=== PATIENT | female | born 2005 | race Caucasian/White ===

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

== ENCOUNTER 2024-11-01 22:18 | Outpatient (REF) | payer MEDICAID, SELFPAY ==
[2024-11-01 21:57] LABS: TSH (W/Ref FT4) 1.73 uIU/mL (0.36-3.74)
--- OUTSIDE RECORDS SUMMARY | 2024-11-01 22:20 | XMS_ITS | Encounter Summary ---
Author Organization [facility] Address [facility] [place] [address] Care Team Providers Care Resource Analyst Name Role Phone Rohan Luevnao EUGENIO Primary Care Provider Encounter Details Date Type Department Care Team (Latest Contact Info) Description 07/08/2024 1:00 PM EDT Office Visit Cardiology at [address] [phone] Jose Daily MD [facility] [place] [address] Nay Sheikh MD [facility] [address] Inappropriate sinus tachycardia Social History Tobacco Use Types Packs/Day Years Used Date Smoking Tobacco: Never Passive Smoke Exposure: Yes Smokeless Tobacco: Never Comments:mom and stepdad smo kes outside Sex and Gender Information Value Date Recorded Sex Assigned at Not on file Gender Identity Not on file Sexual Orientation Not on file documented as of this encounter Last Filed Vital Signs Vital Sign Reading Time Taken Comments Blood Pressure 125/79 07/08/2024 12:53 PM EDT Pulse 61 07/08/2024 12:53 PM EDT Temperature - - Respiratory Rate - - Oxygen Saturation 98% 07/08/2024 12:53 PM EDT Inhaled Oxygen Concentration - - Weight 84.6 kg (186 lb 6.4 oz) 07/08/2024 12:53 PM EDT Height 144.8 cm (4' 9) 07/08/2024 12:53 PM EDT Body Mass Index 40.34 07/08/2024 12:53 PM EDT documented in this encounter Progress Notes * Nay Sheikh MD - 07/08/2024 1:00 PM EDT Images from the original note were not included. [facility] [place] [address] Violette Barrera [id number] 07/08/2024 REFERRING PROVIDER: Rohan Luevano HISTORY OF PRESENT ILLNESS: Miss. Barrera is a 18 year old woman who presents to establish care in Cardiology for work up of dizziness, tachycardia, and chest pain. For the past two years now Violette has noticed that almost daily, to every other day she experiences short spells of lightheadedness/dizziness with chest discomfort. This occurs either at rest or exertion. She describes the dizziness as the feeling of she is spinning, feels lightheaded/faint, but does not syncopize. She has presented to [facility] ED for evaluation and it has been noted that her heart rate is 120-130 at that time. She describes her chest pain as in the center of her chest without radiation. She denies diaphoresis or nausea. Her vision will feel mildly blurry with these episodes. Overall, her exertional capacity is somewhat limited due to the tachycardia/palpitations she experiences when she exerts herself. She was ordered a holter monitor 48 hours for work-up which showed a resting HR for 95 bpm and no arrhythmia. She reports that she did not have any symptoms for the duration of time she had the monitor on. There is no clear trigger for the symptom onset, not necessarily stress or exertion related. Her medications are notable for the following: - vyvanse (for 10 years) - anti-allergy medication - synthroid (stable dose with TFT's) - Metoprolol Tartrate 25 mg BID was added. So far she has also had a neurology visit, and completed an MRI. She was last seen by me on 10/13/23 at which time a TTE, Ziopatch were planned for. Ziopatch has since been reviewed there was significant sinus tachycardia with rates from 80-180. No significant arrhythmias seen. Appreciate that ~24 diary entries were noted, which typically correlated with sinus tachycardia. A tilt table test was completed in the interim that showed negative results: no syncope, tachycardia, OH, or arrhythmia. Today she reports she is feeling well. She is largely asymptomatic but starts to feel palpitations and dizziness ~1-3 hours before her next dose. Denies any syncopal events. PHYSICAL EXAMINATION: Vital Signs: BP 125/79 Pulse 61 Ht (!) 144.8 cm (4' 9) Wt 84.6 kg (186 lb 6.4 oz) SpO2 98% BMI 40.34 kg/m?? General - No acute distress. Well-groomed/nourished. Speech is normal HEENT - EOMI. No scleral icterus. Noninjected. Moist membranes. Respiratory: Clear to auscultation bilaterally. Good effort/excursion. Cardiac - tachycardic with regular rhythm, normal S1/S2, no audible murmur, gallop or rubs. No JVD.No TEENA. Abdomen - Soft, nontender/nondistended Extremities - Warm. No clubbing or cyanosis. Radial Pulses: 2+ B/L; DP Pulses: 2+ B/L Neuro - Limited exam. No deficits. DATA: Holter monitor on 12/2022 showed sinus tachycardia with an average rate of 95 bpm. Max HR 157. No arrhythmia. Symptoms occurred during sinus tachy. EKG: HR 84, WI 148, no delta wave 11/28/23 Conclusion: No significant arrhythmias associated with patient triggered events Monitoring period: 13 days 2 hours of interpretable tracings of a total enrollment 13 days 22 hours Sinoatrial node: Normal function with heart rate 46 bpm to 178 bpm, and mean of 96 bpm Atrioventricular node: Normal conduction Supraventricular arrhythmias: Rare without organization Ventricular arrhythmias: None Symptoms: There were 28 patient triggered events with 24 diary entries. All corresponded to a sinusrhythm without ectopy. Heart rates range between 84 and 154 bpm. Symptoms were for chest pain, lightheadedness, dizziness, fluttering, shortness of breath 01/04/24 TTE Interpretation Summary - Normal biventricular structure and function, with an LVEF by biplane method of 59% and no wall motion abnormalities. Diastolic function is normal. - Normal bi-atrial size. - No hemodynamically significant valvular disease. - No prior echocardiogram for comparison. 05/23/24 Tilt Result: Negative tilt table test for syncope. No significant tachycardic response to heads up tilt table testing. No orthostatic hypotension documented No documented arrhythmias, pauses, or conduction disturbances including heart block noted. ASSESSMENT + PLAN: Miss. Barrera is a 18 year old woman who presents to [facility] in Cardiology for work up of dizziness, tachycardia, and chest pain. Symptoms are non-exertional and occur daily lasing seconds to minutes. Holter was non- diagnostic but did show elevated HR on average. A ziopatch, TTE, and Tilt test were completed which were unremarkable for arrhythmia, structural issues, or POTs. At thistime the most likely diagnosis is unexplained sinus tachycardia. - Currently doing well with the Metoprolol tartrate. Will plan to increase this to Metoprolol tartrate TID to prevent tachycardia symptoms before her next dose. Unfotunately because of swallowing issues, she cannot tolerate succinate. Patient will message me after trying this for a few days. - RTC in 1 year or sooner as needed Thank you for allowing us to participate in the care of this patient. The patient was seen and discussed with attending physician. Nay Sheikh MD Cardiovascular Medicine Fellow * Jose Daily MD - 07/08/2024 1:00 PM EDT Images from the original note were not included. Cardiology Staff Addendum: This patient was seen today and personally interviewed and examined. Agree with documentation by Dr. Sheikh, which I have reviewed and independently confirmed. Briefly, this 18-year-old woman wasseen in a follow-up visit. She presented a number of months back with sinus tachycardia. She had a Zio patch which showed sinus rhythm throughout but with periods of sinus tachycardia up to 180 bpm. All of her diary entries were associated with sinus tachycardia. She had an echocardiogram which showed a structurally normal heart and a tilt table test which was negative. She has been managed with low-dose metoprolol (metoprolol tartrate to 25 mg twice daily). In general, she has been doing better. She reports no new symptoms. Overall, she seems happy with her quality of life. Her examination today is unremarkable. She had flat neck veins, clear lungs, and a regular rhythm without murmurs or gallops. Assessment: She seems to be generally responding well to treatment with a beta- kyree. She does have a little bit of breakthrough symptoms just before her second dose. Accordingly, we decided to provide her with 3 times daily dosing for better coverage. She was happy to try this. Our plan is to see her again in follow-up in about a year. Jose Daily MD, FA, [facility] documented in this encounter Plan of Treatment Not on file documented as of this encounter Visit Diagnoses Diagnosis Inappropriate sinus tachycardia Other specified cardiac dysrhythmias documented in this encounter Care Teams Resource Analyst Relationship Specialty Start Date End Date Rohan Luevano DNP [address] [place] [id number] PCP - General Family Medicine 09/19/23 documented as of this encounter
--- OUTSIDE RECORDS SUMMARY | 2024-11-01 22:20 | XMS_ITS | Encounter Summary ---
Author Organization [facility] Address [facility] [place] [address] Care Team Providers Care Hydraulic Technician Name Role Phone Rohan Luevano DNP Primary Care Provider Encounter Details Date Type Department Care Team (Latest Contact Info) Description 01/02/2024 Travel Social History Tobacco Use Types Packs/Day Years Used Date Smoking Tobacco: Never Passive Smoke Exposure: Yes Smokeless Tobacco: Never Comments:mom and stepdad smo kes outside Sex and Gender Information Value Date Recorded Sex Assigned at Not on file Gender Identity Not on file Sexual Orientation Not on file documented as of this encounter Plan of Treatment Not on file documented as of this encounter Visit Diagnoses Not on filedocumented in this encounter Care Teams Hydraulic Technician Relationship Specialty Start Date End Date Rohan Luevano DNP [address] [place] [id number] PCP - General Family Medicine 09/19/23 documented as of this encounter
--- OUTSIDE RECORDS SUMMARY | 2024-11-01 22:20 | XMS_ITS | Encounter Summary ---
Author Organization [facility] Address [facility] [place] [address] Care Team Providers Care Laborer Tanbark Name Role Phone Rohan Luevano EUGENIO Primary Care Provider Encounter Details Date Type Department Care Team (Late st Contact Info) Description 03/01/2024 External [place] [address] Artie Farnsworth MD [facility] [place] [address] Social History Tobacco Use Types Packs/Day Years Used Date Smoking Tobacco: Never Passive Smoke Exposure: Yes Smokeless Tobacco: Never Comments:mom and stepdad smo kes outside Sex and Gender Information Value Date Recorded Sex Assigned at Not on file Gender Identity Not on file Sexual Orientation Not on file documented as of this encounter Progress Notes * Demetrio Vuong MD - 03/01/2024 9:44 AM EDT Autonomic testing is completely unremarkable; will focus on symptom management rather than referralto sub-specialist. Will arrange for earlier follow-up to discuss -- office staff could you please add her to one of the Monday open slots in April? documented in this encounter Plan of Treatment Not on file documented as of this encounter Procedures Procedure Name Priority Date/Time Associated Diagnosis Comments EMG SCAN Routine 02/23/2024 9:44 AM EDT documented in this encounter Results * Scan Doc: EMG (02/23/2024 9:44 AM EDT) Artie Farnsworth MD MEDIA MGR SCAN EX T ORDR/RSLT documented in this encounter Visit Diagnoses Not on filedocumented in this encounter Care Teams Laborer Tanbark Relationship Specialty Start Date End Date Rohan Luevano DNP [address] [place] [id number] PCP - General Family Medicine 09/19/23 documented as of this encounter
--- OUTSIDE RECORDS SUMMARY | 2024-11-01 22:20 | XMS_ITS | Encounter Summary ---
Author Organization [facility] Address [facility] [place] [address] Care Team Providers Care Field Staff Manager Name Role Phone Rohan Luevano EUGENIO Primary Care Provider Encounter Details Date Type Department Care Team (Latest Contact Info) Description 05/23/2024 7:54 AM EDT - 05/23/2024 11:59 PM EDT Hospital Encounter Non-[place] [id number] Fidencio Crowe MD [facility] [place] [address] Pre-syncope Discharge Disposition: Home Social History Tobacco Use Types Packs/Day Years [...] Sign Reading Time Taken Comments Blood Pressure 112/91 05/23/2024 9:06 AM EDT Pulse 104 05/23/2024 9:06 AM EDT Temperature - - Respiratory Rate - - Oxygen Saturation 99% 05/23/2024 9:06 AM EDT Inhaled Oxygen Concentration - - Weight - - Height - - Body Mass Index - - documented in this encounter Medications at Time of Discharge Medication Sig Dispensed Refills Start Date End Date acetaminophen (Tylenol) 80 mg chewable tablet Take 80 mg by mouth every 4 hours as needed for Pain. Or liqud levothyroxine (Synthroid) 75 mcg tabletIndications:Acquire d hypothyroidism Take 1 tablet by mouth daily. 15 tablet 03/19/2024 metoproloL tartrate (Lopressor) 25 mg tablet Take 25 mg by mouth 2 times daily. 08/08/2023 medroxyPROGESTERone (Depo-PROVERA) 150 mg/mL Suspension Inject 150 mg into the muscle Every 12 weeks. 05/27/2023 lisdexamfetamine (VYVANSE) 20 mg CapsuleIndications:take 20 mg every afternoon Take by mouth. Indications: take 20 mg every afternoon ALBUTEROL INHL Inhale into the lungs as needed. FLUTICASONE PROPIONATE (FLOVENT HFA INHL) Inhale into the lungs as needed. lisdexamfetamine (Vyvanse) 30 mg capsule Take 30 mg by mouth every morning. LORATADINE ORAL Take by mouth as needed. documented as of this encounter Procedure Notes * Alex Meeks PA - 05/23/2024 11:59 PM EDTAssociated Order(s): TILT TABLE TEST Pre-Procedure Diagnose(s): Palpitations Post-Procedure Diagnose(s): Palpitations Images from the original note were not included. Head Up Tilt Test Indication: Lightheadedness, Palpitations, requested by Rohan Luevano DNP Associate Provider: Alex Meeks PA-C Physician: Fidencio Crowe MD Procedure: The patient was brought to the Procedure Room in the fasting state, and continuous electrocardiographic monitoring was instituted after confirmation of informed consent. A 20 gauge intravenous line was initiated in the left arm to allow for intravenous administration of fluid and medication. The intended protocol is as noted below: Stage I: Eighty degree head up tilt was initiated and maintained for 20 minutes. Stage II: Deferred in the setting of no subjective history of syncope or vagal syncope At the completion of this tilt protocol or with symptomatic endpoint reached, the table was returned to the supine position. The patient recovered as the heart rate and blood pressure returned to baseline. The intravenous line was discontinued following the additional administration of saline, and the patient was discharged in good condition. - Heart rate (HR) measured in beats/minute segment via monitor - Blood pressure (BP) measured in mm Hg manually via arm cuff Findings: Baseline: Sitting Heart Rate: 91 Rhythm: Sinus Blood Pressure Right Arm: 115/76 Left Arm: 117/88 Tilt Table Baseline Vitals 05/23/2024 0822 05/23/2024 0852 05/23/2024 0853 05/23/2024 0854 Cardiac Rhythm: NSR NSR NSR NSR Baseline HR: 91 bpm -- -- -- Baseline B/P Left: 117/88 -- -- -- Baseline B/P Right: 115/76 -- -- -- 05/23/2024 0855 05/23/2024 0856 05/23/2024 0858 05/23/2024 0900 Cardiac Rhythm: NSR ST NSR NSR Baseline HR: -- -- -- -- Baseline B/P Left: -- -- -- -- Baseline B/P Right: -- -- -- -- 05/23/2024 0902 05/23/2024 0904 05/23/2024 0906 Cardiac Rhythm: NSR ST ST Baseline HR: -- -- -- Baseline B/P Left: -- -- -- Baseline B/P Right: -- -- -- Tilt Table Log Vitals 05/23/2024 0845 05/23/2024 0846 05/23/2024 0847 05/23/2024 0848 BP: -- 119/89 113/84 114/88 BP Site: -- Left;Upper extremity Left;Upper extremity -- Pulse: 92 97 99 95 SpO2: -- 99 % 99 % 99 % Comment: -- -- -- -- 05/23/2024 0849 05/23/2024 0850 05/23/2024 0851 05/23/2024 0852 BP: 112/83 114/79 118/91 117/91 BP Site: Left;Upper extremity Left;Upper extremity Left;Upper extremity Left;Upper extremity Pulse: 96 96 93 93 SpO2: 99 % 99 % 99 % 99 % Comment: -- -- -- -- 05/23/2024 0853 05/23/2024 0854 05/23/2024 0855 05/23/2024 0856 BP: 117/86 119/89 119/89 107/87 BP Site: Left;Upper extremity Left;Upper extremity Left;Upper extremity Left;Upper extremity Pulse: 93 99 100 111 SpO2: 99 % 99 % 99 % 98 % Comment: dizzy, lightheaded -- -- -- 05/23/2024 0858 05/23/2024 0900 05/23/2024 0902 05/23/2024 0904 BP: 112/91 111/78 113/85 111/84 BP Site: Left;Upper extremity Left;Upper extremity Left;Upper extremity Left;Upper extremity Pulse: 98 94 93 107 SpO2: 97 % 98 % 97 % 98 % Comment: no dizziness or light headedness -- -- -- 05/23/2024 0906 BP: 112/91 BP Site: Left;Upper extremity Pulse: 104 SpO2: 99 % Comment: test complete Upon the completion of the Head Up Tilt Table Protocol, the table was returned to the supine position, and the patient's heart rate and blood pressure returned to near baseline. The patient was discharged in good condition. Discharge (intravenous line removed): Sitting Heart Rate: 104 Rhythm: Sinus Blood Pressure: 119/91 Result: Negative tilt table test for syncope. No significant tachycardic response to heads up tilt table testing. No orthostatic hypotension documented No documented arrhythmias, pauses, or conduction disturbances including heart block noted. Associate Provider: Alex Meeks PA-C Attending Physician: Fidencio Crowe MD 05/23/2024 Associated attestation - Fidencio Crowe MD - 05/27/2024 2:43 PM EDT I was present for and/or immediately available for all ceron portions of this procedure. Associated report by Alex Meeks PA-C reviewed and agreed with. Fidencio Crowe MD, PhD, [facility] Cardiac Electrophysiology documented in this encounter Plan of Treatment Not on file documented as of this encounter Procedures Procedure Name Priority Date/Time Associated Diagnosis Comments TILT TABLE TEST Routine 05/23/2024 8:17 AM EDT Pre-syncope documented in this encounter Results * EP Tilt Table Test (05/23/2024 8:17 AM EDT) Anatomical Region Laterality Modality Other Narrative 05/23/2024 11:59 PM EDT Alex Meeks PA ? 05/26/2024 ??4:35 PM Head Up Tilt Test Indication: Lightheadedness, Palpitations, requested by Rohan Luevano DNP Associate Provider: Alex Meeks PA-C Physician: ??Fidencio Crowe MD Procedure: ??The patient was brought to the Procedure Room in the fasting state, and continuous electrocardiographic monitoring was instituted after confirmation of informed consent. A 20 gauge intravenous line was initiated in the left arm to allow for intravenous administration of fluid and medication. The intended protocol is as noted below: Stage I: ?? Eighty degree head up tilt was initiated and maintained for 20 minutes. Stage II: ?? Deferred in the setting of no subjective history of syncope or vagal syncope At the completion of this tilt protocol or with symptomatic endpoint reached, the table was returned to the supine position. The patient recovered as the heart rate and blood pressure returned to baseline. The intravenous line was discontinued following the additional administration of saline, and the patient was discharged in good condition. - ??Heart rate (HR) measured in beats/minute segment via monitor - ??Blood pressure (BP) measured in mm Hg manually via arm cuff Findings: Baseline: Sitting Heart Rate: ?91 ?? Rhythm: ?Sinus Blood Pressure Right Arm: 115/76 ??Left Arm: ??117/88 Tilt Table Baseline Vitals ? 05/23/2024 0822 05/23/2024 0852 05/23/2024 0853 05/23/2024 0854 Cardiac Rhythm: NSR NSR NSR NSR Baseline HR: 91 bpm -- -- -- Baseline B/P Left: 117/88 -- -- -- Baseline B/P Right: 115/76 -- -- -- ? 05/23/2024 0855 05/23/2024 0856 05/23/2024 0858 05/23/2024 0900 Cardiac Rhythm: NSR ST NSR NSR Baseline HR: -- -- -- -- Baseline B/P Left: -- -- -- -- Baseline B/P Right: -- -- -- -- ? 05/23/2024 0902 05/23/2024 0904 05/23/2024 0906 Cardiac Rhythm: NSR ST ST ?? Baseline HR: -- -- -- ?? Baseline B/P Left: -- -- -- ?? Baseline B/P Right: -- -- -- ?? Tilt Table Log Vitals ? 05/23/2024 0845 05/23/2024 0846 05/23/2024 0847 05/23/2024 0848 BP: -- 119/89 113/84 114/88 BP Site: -- Left;Upper extremity Left;Upper extremity -- Pulse: 92 97 99 95 SpO2: -- 99 % 99 % 99 % Comment: -- -- -- -- ? 05/23/2024 0849 05/23/2024 0850 05/23/2024 0851 05/23/2024 0852 BP: 112/83 114/79 118/91 117/91 BP Site: Left;Upper extremity Left;Upper extremity Left;Upper extremity Left;Upper extremity Pulse: 96 96 93 93 SpO2: 99 % 99 % 99 % 99 % Comment: -- -- -- -- ? 05/23/2024 0853 05/23/2024 0854 05/23/2024 0855 05/23/2024 0856 BP: 117/86 119/89 119/89 107/87 BP Site: Left;Upper extremity Left;Upper extremity Left;Upper extremity Left;Upper extremity Pulse: 93 99 100 111 SpO2: 99 % 99 % 99 % 98 % Comment: dizzy, lightheaded -- -- -- ? 05/23/2024 0858 05/23/2024 0900 05/23/2024 0902 05/23/2024 0904 BP: 112/91 111/78 113/85 111/84 BP Site: Left;Upper extremity Left;Upper extremity Left;Upper extremity Left;Upper extremity Pulse: 98 94 93 107 SpO2: 97 % 98 % 97 % 98 % Comment: no dizziness or light headedness -- -- -- ? 05/23/2024 0906 BP: 112/91 ? BP Site: Left;Upper extremity ? Pulse: 104 ? SpO2: 99 % ? Comment: test complete ? Upon the completion of the Head Up Tilt Table Protocol, the table was returned to the supine position, and the patient's heart rate and blood pressure returned to near baseline. The patient was discharged in good condition. Discharge (intravenous line removed): Sitting Heart Rate: ?104 ?? Rhythm: ?Sinus Blood Pressure: ??119/91 Result: Negative tilt table test for syncope. No significant tachycardic response to heads up tilt table testing. No orthostatic hypotension documented No documented arrhythmias, pauses, or conduction disturbances including heart block noted. Associate Provider: Alex Meeks PA-C Attending Physician: Fidencio Crowe MD 05/23/2024 Fidencio Crowe MD CARDIAC SERVICES ORD ERABLES documented in this encounter Visit Diagnoses Diagnosis Pre-syncope Syncope and collapse documented in this encounter Care Teams Field Staff Manager Relationship Specialty Start Date End Date Rohan Luevano DNP [address] [place] [address] PCP - General Family Medicine 09/19/23 documented as of this encounter
--- OUTSIDE RECORDS SUMMARY | 2024-11-01 22:20 | XMS_ITS | Encounter Summary ---
Author Organization [facility] [place] [address] Care Team Providers Care Welt Beater Name Role Phone Rohan Luevano EUGENIO Primary Care Provider Reason for Referral * Diagnostic Test (Routine) - Closed Specialty Diagnoses / Procedures Referred By Magdi nixon Referred To Contact Cardiology Diagnoses Dizzy spells Procedures Echocardiogram Transthoracic Tricia Sheikh MD [facility] [place] [address] [facility] [address] Referral ID Status Reason Start Date Expiration Date V isits Requested Visits Authorized [id number] Closed Specialty Service Requested 10/13/2023 10/12/2024 1 1 Reason for Visit * Diagnostic Test (Routine) - Closed Specialty Diagnoses / Procedures Referred By Magdi nixon Referred To Contact Cardiology Diagnoses Dizzy spells Procedures Echocardiogram Transthoracic Tricia Sheikh MD [facility] [place] [address] [facility] [place] [address] Referral ID Status Reason Start Date Expiration Date V isits Requested Visits Authorized [id number] Closed Specialty Service Requested 10/13/2023 10/12/2024 1 1 Encounter Details Date Type Department Care Team (Latest Contact Info) Description 01/02/2024 8:22 AM EDT - 01/02/2024 11:59 PM EDT Hospital Encounter Non-Invasive Cardiology Lab [facility] [place] [address] Lisa Sinclair MD [facility] [place] [address] Dizzy spells Discharge Disposition: Home Social History Tobacco Use Types Packs/Day Years Used Date Smoking Tobacco: Never Passive Smoke Exposure: Yes Smokeless Tobacco: Never Comments:mom and stepdad smo kes outside Sex and Gender Information Value Date Recorded Sex Assigned at Not on file Gender Identity Not on file Sexual Orientation Not on file documented as of this encounter Medications at Time of Discharge Medication Sig Dispensed Refills Start Date End Date metoproloL tartrate (Lopressor) 25 mg tablet Take [...] LORATADINE ORAL Take by mouth as needed. levothyroxine (SYNTHROID) 75 mcg TabletIndications:Acquir ed hypothyroidism Take 1 tablet by mouth daily. 15 tablet 01/30/2018 03/19/2024 documented as of this encounter Plan of Treatment Not on file documented as of this encounter Procedures Procedure Name Priority Date/Time Associated Diagnosis Comments ECHO COMPLETE Routine 01/02/2024 9:50 AM EDT Dizzy spells documented in this encounter Results * ECHO COMPLETE (01/02/2024 9:50 AM EDT) Anatomical Region Laterality Modality Cardiac Other 01/02/2024 9:00 AM EDT Narrative 01/02/2024 10:07 AM EDT [address] [place] [address] ? Echocardiogram Report Name: ELLI SALINAS ?Study Date: 01/02/2024 09:00 AMBP: 112/82 mmHg ? Patient Location: : 2005 ? Height: 146 cm ? Account: [id number] Age: 18 yrs ? Weight: 77 kg Gender: Female ?BSA: 1.7 m2 Ordering Physician: LISA SINCLAIR Referring Physician: TRICIA SHEIKH Performed By: Deisi Blackman RDCS Reason For Study: Dizziness Interpreting Fellow: Deisi Gutierres. Exam Location: [facility]. Interpretation Summary - Normal biventricular structure and function, with an LVEF by biplane method of 59% and no wall motion abnormalities. Diastolic function is normal. - Normal bi-atrial size. - No hemodynamically significant valvular disease. - No prior echocardiogram for comparison. Procedure Complete-[id number]. Satisfactory quality. Left Ventricle Left ventricle is of normal size. Wall thickness is normal. Left ventricular size and systolic function is normal. The left ventricular ejection fraction is 59% by Krueger's biplane. There are no segmental wall motion abnormalities. Right Ventricle The right ventricle is of normal size. Right ventricular systolic function is normal. Left Atrium The left atrium is normal. No abnormality of the interatrial septum is identified. Right Atrium The right atrium is normal. Aortic Valve The aortic valve is tricuspid. There is no aortic stenosis. There is no aortic regurgitation. Mitral Valve The mitral valve is structurally normal. There is trace mitral regurgitation. Tricuspid Valve The tricuspid valve is structurally and functionally normal. There is trace tricuspid regurgitation. Pulmonic Valve The pulmonic valve appears to be structurally and functionally normal. There is mild pulmonic valve regurgitation. Great Arteries The aortic root is of normal size. No abnormalities are identified. The left coronary artery originates from the left coronary cusp, and the right coronary artery originates from the right coronary cusp. No abnormalities of the pulmonary artery are identified. Venous Inferior vena cava is normal in size. Inferior vena cava collapse greater than 50% with respiration. Pericardium/Pleural The pericardium appears normal. Hemodynamics Pulmonary artery hypertension could not be assessed due to inadequate tricuspid regurgitation jet. Left ventricular diastolic function is normal. Left ventricular filling pressure is normal. Ejection Fraction ?2D Measurements ? Volumes EF(MOD-bp): 59.0 % ?IVSd: 0.93 cm ?LAV(MOD- bp) Indexed: ?LVIDd: 3.8 cm ?LVIDs: 3.0 cm ?17.4 ml/m2 ?LVPWd: 0.83 cm ? RA A4Cs_phl: 10.6 cm2 ?RWT: 0.44 {ratio} ?EDV(MOD-bp) Indexed: ?LV mass(C)d: 97.8 grams ?35.9 ml/m2 ?LV mass(C)dI: 58.0 grams/m2 ?ESV(MOD- bp) Indexed: ?Ao root diam: 2.6 cm ? 14.7 ml/m2 ?Ao root diam index: 1.6 ?SV(LVOT): 51.0 ml ?asc Aorta Diam: 2.5 cm ?LVOT diam: 1.9 cm ?SI(LVOT): 30.2 ml/m2 ?TAPSE_phl: 1.9 cm Doppler LV V1 VTI: 17.7 cm MV E max kelby: 86.2 cm/sec Lat Peak E' Kelby: 12.1 cm/sec E/ e' (lat): 7.1 Med Peak E' Kelby: 9.4 cm/sec E/e' (med): 9.1 E/e' Average: 8.1 I ?WMSI = 1.00 ? % Normal = 100 ?Segments ??Size X - Cannot ?2 - ?4 - ?1-2 ? small Interpret ?1 - Normal ?? Hypokinetic 3 - Akinetic Dyskinetic ?? 3-5 ? moderate 5 - ? 6-14 ?large Aneurysmal ?15-16 ?? diffuse Procedure Note Lisa Sinclair MD - 01/02/2024 [address] [place] [id number] Echocardiogram Report Name: ELLI SALINAS Study Date: 409:00 AMBP: 112/82 mmHg Patient Location: : 2005 Height: 146 cm Account: [id number] Age: 18 yrs Weight: 77 kg Gender: Female BSA: 1.7 m2 Ordering Physician: LISA SINCLAIR Referring Physician: TRICIA SHEIKH Performed By: Deisi Blackman RDCS Reason For Study: Dizziness Interpreting Fellow: Deisi Gutierres. Exam Location: [facility]. Interpretation Summary - Normal biventricular structure and function, with an LVEF by biplanemethod of 59% and no wall motion abnormalities. Diastolic function is normal. - Normal bi-atrial size. - No hemodynamically significant valvular disease. - No prior echocardiogram for comparison. Procedure Complete-[id number]. Satisfactory quality. Left Ventricle Left ventricle is of normal size. Wall thickness is normal. Leftventricular size and systolic function is normal. The left ventricular ejection fraction is59% by Krueger's biplane. There are no segmental wall motion abnormalities. Right Ventricle The right ventricle is of normal size. Right ventricular systolic functionis normal. Left Atrium The left atrium is normal. No abnormality of the interatrial septum isidentified. Right Atrium The right atrium is normal. Aortic Valve The aortic valve is tricuspid. There is no aortic stenosis. There is noaortic regurgitation. Mitral Valve The mitral valve is structurally normal. There is trace mitralregurgitation. Tricuspid Valve The tricuspid valve is structurally and functionally normal. There istrace tricuspid regurgitation. Pulmonic Valve The pulmonic valve appears to be structurally and functionally normal.There is mild pulmonic valve regurgitation. Great Arteries The aortic root is of normal size. No abnormalities are identified. Theleft coronary artery originates from the left coronary cusp, and the rightcoronary artery originates from the right coronary cusp. No abnormalities of thepulmonary artery are identified. Venous Inferior vena cava is normal in size. Inferior vena cava collapse greaterthan 50% with respiration. Pericardium/Pleural The pericardium appears normal. Hemodynamics Pulmonary artery hypertension could not be assessed due to inadequatetricuspid regurgitation jet. Left ventricular diastolic function is normal. Leftventricular filling pressure is normal. Ejection Fraction 2D Measurements Volumes EF(MOD-bp): 59.0 % IVSd: 0.93 cm LAV(MOD-bp)Indexed: LVIDd: 3.8 cm LVIDs: 3.0 cm 17.4 ml/m2 LVPWd: 0.83 cm RA A4Cs_phl: 10.6cm2 RWT: 0.44 {ratio} EDV(MOD-bp)Indexed: LV mass(C)d: 97.8 grams 35.9 ml/m2 LV mass(C)dI: 58.0 grams/m2 ESV(MOD-bp)Indexed: Ao root diam: 2.6 cm 14.7 ml/m2 Ao root diam index: 1.6 SV(LVOT): 51.0ml asc Aorta Diam: 2.5 cm LVOT diam: 1.9 cm SI(LVOT): 30.2ml/m2 TAPSE_phl: 1.9 cm Doppler LV V1 VTI: 17.7 cm MV E max kelby: 86.2 cm/sec Lat Peak E' Kelby: 12.1 cm/sec E/ e' (lat): 7.1 Med Peak E' Kelby: 9.4 cm/sec E/e' (med): 9.1 E/e' Average: 8.1 I WMSI = 1.00 % Normal = 100 SegmentsSize X - Cannot 2 - 4 - 1-2small Interpret 1 - Normal Hypokinetic 3 - Akinetic Dyskinetic 3-5moderate 5 - 6-14large Aneurysmal 15-16diffuse Lisa Sinclair MD ECHO ORDERABLES documented in this encounter Visit Diagnoses Diagnosis Dizzy spells Dizziness and giddiness documented in this encounter Care Teams Welt Beater Relationship Specialty Start Date End Date Rohan Luevano DNP [address] [place] [id number] PCP - General Family Medicine 09/19/23 documented as of this encounter
--- OUTSIDE RECORDS SUMMARY | 2024-11-01 22:20 | XMS_ITS | Continuity of Care Document ---
Author Organization [facility] Address [address] [place] [id number] Care Team Providers Care Ship'S Officer Name Role Phone STEPHANI MITCHELL M.D. Primary Care Physi desirae Encounter LTTL_MD FIN NBR [id number] Date(s): 07/07/23 - 07/07/[address] [phone] Encounter Diagnosis Sinus tachycardia(Discharge Diagnosis) - 07/07/23 Discharge Disposition: Home or Self Care Attending Physician: Mecca Kennedy MD Admitting Physician: Mecca Kennedy MD Allergies, Adverse Reactions, Alerts Substance Reaction Severity Status Strawberries Unknown Active Hayfever Unknown Active Functional Status 07/07/23 Other exposure to Infectious Disease Non e Medications ketorolac 10 mg oral tablet 10 mg = 1 tab, Oral, every 6 hr, PRN as needed for pain, not to exceed 40 mg/day and 5 days duration for all dose forms, # 12 cap, 0 Refill(s), Pharmacy: [id number], 145, cm, 02/28/23 13:35:00 EDT, Height/Length Dosing, 73.94, kg, 02/28/23 13:35:00 EDT, Weight Dosing Start Date: 02/28/23 Status: Ordered levothyroxine 75 mcg (0.075 mg) oral tablet TAKE ONE TABLET BY MOUTH EVERY DAY Start Date: 02/28/23 Status: Ordered medroxyPROGESTERone 150 mg/mL intramuscular suspension INJECT 150MG INTRAMUSCULARLY EVERY 12 WEEKS Start Date: 02/28/23 Status: Ordered Metoprolol Tartrate 25 mg oral tablet 25 mg = 1 tab, Oral, BID, # 60 tab, 0 Refill(s), Pharmacy: [id number], 145, cm, 07/07/23 11:18:00 EDT, Height/Length Dosing, 73, kg, 07/07/23 11:18:00 EDT, Weight Dosing Start Date: 07/07/23 Status: Ordered Vyvanse 20 mg oral capsule TAKE ONE CAPSULE BY MOUTH EVERY DAY AFTER LUNCH Start Date: 02/28/23 Status: Ordered Vyvanse 30 mg oral capsule TAKE ONE CAPSULE BY MOUTH EVERY MORNING Start Date: 02/28/23 Status: Ordered Mental Status 07/07/23 Eye Opening Response [place] Spontaneous ly Best Verbal Response [place] Oriented Best Motor Response [place] Obeys comman ds [place] Coma Score 15 Results Laboratory List Name Date Automated Diff 07/07/23 CBC w/ Diff 07/07/23 Comprehensive Metabolic Panel (CMP) 07/07 TSH w/ Rflx to Free T4 07/07/23 Troponin-I High Sensitivity 07/07/23 Most recent to oldest [Reference Range]: 1 WBC [4.8-10.8 K/mcL] 9.2 K/mcL (07/07/23 11:25 AM) RBC [4.20-5.40 Million/mcL] 5.05 Million /mcL (07/07/23 11:25 AM) Neutro Auto [42.2-75.2 %] 71.4 % (07/07/23 11:25 AM) Lymph Auto [20.5-51.1 %] 21.5 % (07/07/23 11:25 AM) [place] Auto [1.7-9.3 %] 5.7 % (07/07/23 11:25 AM) Basophil Auto [0.0-0.8 %] 0.4 % (07/07/23 11:25 AM) BUN [8-26 mg/dL] 13 mg/dL (07/07/23 11:25 AM) Glucose Level [74-106 mg/dL] 89 mg/dL (07/07/23 11:25 AM) Potassium Level [3.5-5.1 mmol/L] 4.0 mmo l/L (07/07/23 11:25 AM) Baso Absolute [0.0-0.2 K/mcL] 0.0 K/mcL (07/07/23 11:25 AM) MCV [81.0-99.0 fL] 80.4 fL *LOW* (07/07/23 11:25 AM) AST [15-41 IntlUnit/L] 25 IntlUnit/L (07/07/23 11:25 AM) ALT [14-54 IntlUnit/L] 22 IntlUnit/L (07/07/23 11:25 AM) MCHC [32.0-36.0 g/dL] 33.3 g/dL (07/07/23 AM) Osmolality [275-295 mOsm/kg] 277 mOsm/kg (07/07/23 11:25 AM) Sodium Level [134-143 mmol/L] 139 mmol/L (07/07/23 11: AM) Lymph Absolute [1.2-3.4 K/mcL] 2.0 K/mcL (07/07/2325 AM) Hct [37.0-47.0 %] 40.6 % (07/07/23 AM) Calcium Level [8.9-10.3 mg/dL] 9.7 mg/dL (07/07/23:25 AM) [place] Absolute [0.1-0.6 K/mcL] 0.5 K/mcL (07/07/23:25 AM) Albumin Level [3.5-5.0 g/dL] 4.3 g/dL (07/07/2325 AM) Protein Total [6.5-8.1 g/dL] 8.0 g/dL (07/07/23: AM) MCH [27.0-31.0 pg] 26.7 pg *LOW* (07/07/2325 AM) Neutro Absolute [1.4-6.5 K/mcL] 6.5 K/mc L (07/07/23 11:25 AM) Bilirubin Total [0.2-1.2 mg/dL] 0.8 mg/d L (07/07/23 11:25 AM) Hgb [12.0-16.0 g/dL] 13.5 g/dL (07/07/23 11:25 AM) Alk Phos [38-130 IntlUnit/L] 83 IntlUnit /L (07/07/23 11:25 AM) MPV [7.4-10.4 fL] 9.6 fL (07/07/23 11:25 AM) Platelets [130-400 K/mcL] 424 K/mcL *HI* (07/07/23 11:25 AM) CO2 [22-32 mmol/L] 18 mmol/L *LOW* (07/07/23:25 AM) Eos Absolute [0.0-0.2 K/mcL] 0.1 K/mcL (07/07/23:25 AM) TSH [0.45-5.33 mcIntlUnit/mL] 2.74 mcInt lUnit/mL (07/07/23 11:25 AM) Chloride Level [98-111 mmol/L] 111 mmol/ L (07/07/23:25 AM) RDW-CV [11.5-14.5 %] 12.8 % (07/07/23 11:25 AM) A/G Ratio [1.0-2.5 g/dL] 1.2 g/dL (07/07/23:25 AM) BUN/Creat Ratio [8.0-20.0] 16.7 (07/07/23 11:25 AM) Globulin [2.3-3.5 g/dL] 3.7 g/dL *HI* (07/07/23:25 AM) Imm Gran Absolute [0.00-0.02 K/mcL] 0.02 K/mcL (07/07/23 11:25 AM) Imm Gran Auto [0.0-0.5 %] 0.2 % (07/07/23:25 AM) Creatinine Level [0.44-1.00 mg/dL] 0.78 mg/dL (07/07/23 11:25 AM) Troponin-I HS [<=12 ng/L] <2 ng/L 1 (07/07/23 11:25 AM) Anion Gap [3.0-12.0] 10.0 (07/07/23 11:25 AM) Eos, Auto [0.00-3.00 %] 0.80 % (07/07/23 11:25 AM) eGFR CKD-EPI [>=60 mL/min/1.73 m2] 113 m L/min/1.73 m2 (07/07/23 11:25 AM) 1Interpretive Data: The Dave ACCESS high-sensitivity Troponin I (hsTNI) 99 percentile cutoffs forhealthy adults are 12 ng/L or less for females and 20 ng/L or less for males. SERIAL MEASUREMENT IS HIGHLY RECOMMENDED for the diagnosis or exclusion of Acute Coronary Syndromes(ACS). Please refer to the High-Sensitivity Troponin Algorithm 2022 for guidance. As with all markers of cardiac injury, elevations of hsTnI do not in and of themselves indicate thepresence of an ischemic mechanism. Many other disease states can be associated with elevations via mechanisms different from those that cause injury in patients with ACS. These include trauma (contusion, ablation, pacing); congestive heart failure; pulmonary embolism; kidney failure; and myocarditis. Clinical judgement is necessary to distinguish patients who have ischemic heart disease from those who do not. Radiology Reports * Exam Date Time Procedure Performing Provider Status 07/07/23 12:[address] Angio Chest Pam Wong; Auth (V erified) Notes: (CT Angio Chest) Reason For Exam: chest pain, sob CT Angio Chest EXAM DESCRIPTION: CT Angio Chest 07/07/2023 INDICATION: CHEST PAIN, SOB TECHNIQUE: All CT scans at this facility use at least one of these dose optimization techniques: Automated exposure control; mA and/or kV adjustment per patient size (includes targeted exams where dose is matched to clinical indication); or iterative reconstruction. CT angiography examination of the chest with thin section axial images including sagittal and coronal MPR images performed on a separate workstation under concurrent supervision. 100 cc of Isovue-300 contrast was utilized COMPARISON: None FINDINGS: Normal opacification of the right ventricular outflow tract, main pulmonary arteries and segmental pulmonary arteries with no evidence of pulmonary embolism. No evidence of thoracic aortic dissection. Clear lungs with no focal consolidation or pulmonary mass. No central endobronchial filling defect identified No pleural effusion or pneumothorax No mediastinal, hilar or axillary adenopathy. No pericardial effusion. Soft tissue attenuation material in the anterior-superior mediastinum most consistent with residual thymic tissue considering patient age. No mass or adenopathy in the visualized upper abdomen No suspicious regional osseous lesions. IMPRESSION: No evidence of pulmonary embolism Clear lungs. JOB #: [id number] Final Signed by: Elias Branham MD Signed (Electronic Signature): 07/07/2023 12:31 pm * Exam Date Time Procedure Performing Provider Status 07/07/23 11:03 AM XR Chest 1 View Carolyn Botello; Auth (V erified) Notes: (XR Chest 1 View) Reason For Exam: sob XR Chest 1 View EXAM DESCRIPTION: XR Chest 1 View 07/07/2023 INDICATION: SOB COMPARISON: 02/28/2023 FINDINGS: Clear lungs with no focal infiltrate or pulmonary edema. Normal cardiomediastinal contour. No significant pleural effusion or pneumothorax. Thoracic levoscoliosis which was seen previously. IMPRESSION: No active chest disease. JOB #: [id number] Final Signed by: Elias Branham MD Signed (Electronic Signature): 07/07/2023 11:24 am Vital Signs Most recent to oldest [Reference Range]: 1 2 3 Temperature Oral [35.8-37.3 Deg C] 36.5 Deg C (07/07/23 10:47 AM) Peripheral Pulse Rate [60-100 bpm] 98 bpm (07/07/23 2:01 PM) 97 bpm (07/07/23 1:21 PM) 106 bpm *HI* (07/07/23 12:54 PM) Heart Rate Monitored [60-100 bpm] 94 bpm (07/07/23 2:01 PM) 99 bpm (07/07/23 1:21 PM) 105 bpm *HI* (07/07/23 12:54 PM) Respiratory Rate [12-24 br/min] 12 br/min (07/07/23 2:01 PM) 31 br/min *HI* (07/07/23 1:21 PM) 17 br/min (07/07/23 12:54 PM) Blood Pressure [90-140/60-90 mmHg] 124/84mmHg (07/07/23 2:01 PM) 127/93mmHg (07/07/23 1:21 PM) 139/93mmHg (07/07/23 12:54 PM) Mean Arterial Pressure Cuff 95 mmHg (07/07/23 2:01 PM) 104 mmHg (07/07/23 1:21 PM) 104 mmHg (07/07/23 12:54 PM) Weight Dosing 73.00 kg (07/07/23 11:18 AM) Weight Estimated 73.00 kg (07/07/23 10:47 AM) Height/Length Dosing 145.000 cm (07/07/23 11:18 AM) Height/Length Estimated 145.000 cm (07/07/23 10:47 AM) Social History Social History Type Response Tobacco Never tobacco user T obacco Use:. Sex Physician Emergency department Note * Ned Abad MD: PERFORM Event Display: ED Note Physician Authored Date: [id number] ELLI ROSADO :2005 Age:17 years Sex:Female Visit Date:07/07/2023 Primary Care Physician: STEPHANI MITCHELL M.D. Basic Information Time Seen: Ned Abad MD / 07/07/2023 10:49 Chief Complaint c/o chest pain, SOB, numbness in all extremites, and blurred vision that has been worsening over the past 3 days. No calf pain. hx hypothyroidism. Coivd one month ago. SOB worsens on exertion. used rescue inhaler History Of Present Illness: 17-year-old female??complaining of shortness of breath, right-sided chest pain, exercise intolerance; describes having heart rates in the 130s 140s with minimal activity walking across the room. ??While in ED??patient had resting tachycardia of about 100 1015 and then getting up to use the bathroomand walking back to the bed, less than 10 yards, she did have a heart rate up in the high 130s.?? Stef olmedo has been having some??exercise intolerance with??lightheadedness and??shortness of breath??for many months.?? Her primary care provider did a Holter??but she does not know the results of this. ??She was also referred for seizure evaluation because??she was describing periods of lightheadedness??and near syncope??(patient believes this was negative.?? Patient has a history of hypothyroidism and is on thyroid replacement; she has her thyroid??labs checked regularly.?? With her episodes of shortness of breath patient gets tingly all over, sometimes lightheaded.?? Patient is on control.;?? depo-provera, as well as??Cynthia, the latter of which she has been on since??early grade school. Review of Systems: Review of Systems: Constitutional: [No fevers, chills, sweats] Eye: [No acute visual complaints] ENT: [No ear pain, nasal congestion, sore throat] Respiratory: [- shortness of breath, cough] Cardiovascular: [Right-sided respirophasic chest pain, +/-palpitations] Gastrointestinal: [No nausea, vomiting, or diarrhea. No bleeding or melena] Genitourinary: [No dysuria or hematuria] Musculoskeletal: [No acute back pain, neck pain, joint pain, muscle pain, decreased range of motion] Integumentary: [No rash, pruritus, abrasions] Neurologic: [No focal sensory or motor complaints. Denies syncope] Psychiatric: [History of anxiety] ?? Physical Exam: General: [Alert and oriented, well nourished, no acute distress].?Resting tachycardia, afebrile not hypoxic no respiratory distress on exam Eye: [PERRL, EOMI, normal conjunctiva]. HENT: [Normocephalic, normal hearing, moist oral mucosa, no scleral icterus, no nasal discharge].?No proptosis Neck: [Ranging neck, normal inspection].?No thyromegaly Lungs: [Clear to auscultation, non-labored respiration, no tachypnea].?? Heart: [Normal rate, regular rhythm, no murmur, gallop or edema]. Abdomen: [Soft, non-tender, non-distended, normal bowel sounds].?? Musculoskeletal: [Normal range of motion and strength, no tenderness or swelling]. Skin: [Skin is warm, dry and pink, no rashes or lesions]. Neurologic: [Awake, alert and oriented X4, normal tone, moving all extremities with good strength].[Ambulation intact]. Psychiatric: [Cooperative, appropriate mood and affect]. Physical Exam Vitals & Measurements T:??36.5?C ??(Oral)?? HR:??98??(Peripheral)?? HR:??94??(Monitored)?? RR:??12?? BP:??124/84?? SpO2:??100%?? HT:??145.000??cm?? WT:??73.00??kg??(Estimated)?? Pain Score:??4?? Procedure No Qualifying Data Assessment/Plan 1.??Sinus tachycardia??R00.0 Ordered: Metoprolol Tartrate 25 mg oral tablet, 25 mg = 1 tab, Oral, BID, # 60 tab, 0 Refill(s), Pharmacy: [facility] #[id number], 145, cm, 07/07/23 11:18:00 EDT, Height/Length Dosing, 73, kg, 07/07/23 11:18:00 EDT, Weight Dosing ?? Orders: Metoprolol Tartrate, 5 mg = 5 mL, IV Push, Injection, every 5 min for 3 doses, PRN other (see comment), First Dose: 07/07/23 12:40:00 EDT, Stop Date: Limited # of times, Physician Stop, Routine Discharge Patient, 07/07/23 13:40:00 EDT Patient's not anemic, no significant electrolyte abnormalities, EKG just shows tachycardia with no ST or T wave changes. ??I did a PE study on the patient given her complaints of respirophasic pain shortness of breath, resting tachycardia and being on hormonal therapy; this was read out as negative. ??Her lungs are also read out as??with no pathology. ??I suspect the etiology of her exercise intolerance and lightheadedness dizziness as a consequence of her resting heart rate, and significant??tachycardia that she gets even with minimal activities. ??Accordingly I think it prudent that we try to slow her down. ??Patient given 2 doses of IV metoprolol as well as??25 of metoprolol tartrate. ??Resting heart rate came down to??the high 80s low 90s.?? Prior to this even with simple ambulation across the room she was going up into the 130s. ??After??medication??her heart rate was not as dramatically elevated with minimal activities.?? I think it prudent that she try a course of??metoprolol ta rtrate twice a day at 25 mg.?? I will have her monitor her??heart rates??several times a day with apulse oximeter and follow-up with her doctor which she is scheduled to see in 2 weeks time.?? I putin a phone call to her primary care provider??and spoke to her doctor about the??work-up and plan.?? Okay for discharge with follow-up with??PMD. Medication Reconciliation New Prescription metoprolol (Metoprolol Tartrate 25 mg oral tablet)1 tab Oral (given by mouth) 2 times a day. Refills: 0. ?? Unchanged ketorolac (ketorolac 10 mg oral tablet)1 tab Oral (given by mouth) every 6 hours as needed as needed for pain. not to exceed 40 mg/day and 5 days duration for all dose forms. Refills: 0. ?? levothyroxine (levothyroxine 75 mcg (0.075 mg) oral tablet)TAKE ONE TABLET BY MOUTH EVERY DAY. ?? lisdexamfetamine (Vyvanse 20 mg oral capsule)TAKE ONE CAPSULE BY MOUTH EVERY DAY AFTER LUNCH. ?? lisdexamfetamine (Vyvanse 30 mg oral capsule)TAKE ONE CAPSULE BY MOUTH EVERY MORNING. ?? medroxyPROGESTERone (medroxyPROGESTERone 150 mg/mL intramuscular suspension)INJECT 150MG INTRAMUSCULARLY EVERY 12 WEEKS. Problem List/Past Medical History Ongoing No qualifying data Historical No qualifying data Medication Administration Given Metoprolol Tartrate, 5 mg, 5 mg, IV Push Metoprolol Tartrate, 25 mg, Oral Allergies Hayfever Strawberries Social History Electronic Cigarette/Vaping Electronic Cigarette Use: Never. Tobacco Never tobacco user Tobacco Use:. Diagnostic Results CT Angio Chest 07/07/2023 12:33 EDT XR Chest 1 View 07/07/2023 11:[address] Angio Chest ?? 07/07/23 12:31:13 EXAM DESCRIPTION: CT Angio Chest ?? 07/07/2023 ?? INDICATION: CHEST PAIN, SOB ?? TECHNIQUE: All CT scans at this facility use at least one of these dose optimization techniques: Automated exposure control; mA and/or kV adjustment per patient size (includes targeted exams where dose is matched to clinical indication); or iterative reconstruction. ?? CT angiography examination of the chest with thin section axial images including sagittal and coronal MPR images performed on a separate workstation under concurrent supervision. ?? 100 cc of Isovue-300 contrast was utilized ?? COMPARISON: None ?? FINDINGS: Normal opacification of the right ventricular outflow tract, main pulmonary arteries and segmental pulmonary arteries with no evidence of pulmonary embolism. No evidence of thoracic aortic dissection. ?? Clear lungs with no focal consolidation or pulmonary mass. No central endobronchial filling defect identified ?? No pleural effusion or pneumothorax ?? No mediastinal, hilar or axillary adenopathy. No pericardial effusion. Soft tissue attenuation material in the anterior-superior mediastinum most consistent with residual thymic tissue considering patient age. ?? No mass or adenopathy in the visualized upper abdomen ?? No suspicious regional osseous lesions. ?? IMPRESSION: No evidence of pulmonary embolism ?? Clear lungs. ? JOB #: [id number] Electronically Signed By: ?? Signed By: Elias Branham MD ?? XR Chest 1 View ?? 07/07/23 11:24:20 EXAM DESCRIPTION: XR Chest 1 View ?? 07/07/2023 ?? INDICATION: SOB ?? COMPARISON: 02/28/2023 ?? FINDINGS: Clear lungs with no focal infiltrate or pulmonary edema. ?? Normal cardiomediastinal contour. ?? No significant pleural effusion or pneumothorax. ?? Thoracic levoscoliosis which was seen previously. ?? IMPRESSION: No active chest disease. ? JOB #: [id number] Electronically Signed By: ?? Signed By: Elias Branham MD Lab Results CBC and Differential?? LATEST RESULTS?? HISTORICAL RESULTS?? WBC?? 07/07/23 11:25?? 9.2?? 02/28/23?? 9.4?? RBC?? 07/07/23 11:25?? 5.05?? 02/28/23?? 5.22?? Hgb?? 07/07/23 11:25?? 13.5?? 02/28/23?? 14.0?? Hct?? 07/07/23 11:25?? 40.6?? 02/28/23?? 42.7?? MCV?? 07/07/23 11:25?? 80.4 ??Low?? 02/28/23?? 81.8?? MCH?? 07/07/23 11:25?? 26.7 ??Low?? 02/28/23?? 26.8 ??Low?? MCHC?? 07/07/23 11:25?? 33.3?? 02/28/23?? 32.8?? RDW-CV?? 07/07/23 11:25?? 12.8?? 02/28/23?? 12.5?? Platelets?? 07/07/23 11:25?? 424 ??High?? 02/28/23?? 386?? MPV?? 07/07/23 11:25?? 9.6?? 02/28/23?? 9.1?? Neutro Auto?? 07/07/23 11:25?? 71.4?? 02/28/23?? 74.9?? Lymph Auto?? 07/07/23 11:25?? 21.5?? 02/28/23?? 18.0 ??Low?? [place] Auto?? 07/07/23 11:25?? 5.7?? 02/28/23?? 5.9?? Eos, Auto?? 07/07/23 11:25?? 0.80?? 02/28/23?? 0.50?? Basophil Auto?? 07/07/23 11:25?? 0.4?? 02/28/23?? 0.5?? Imm Gran Auto?? 07/07/23 11:25?? 0.2?? 02/28/23?? 0.2?? Neutro Absolute?? 07/07/23 11:25?? 6.5?? 02/28/23?? 7.0 ??High?? Lymph Absolute?? 07/07/23 11:25?? 2.0?? 02/28/23?? 1.7?? [place] Absolute?? 07/07/23 11:25?? 0.5?? 02/28/23?? 0.6?? Eos Absolute?? 07/07/23 11:25?? 0.1?? 02/28/23?? 0.0?? Baso Absolute?? 07/07/23 11:25?? 0.0?? 02/28/23?? 0.0?? Imm Gran Absolute?? 07/07/23 11:25?? 0.02?? 02/28/23?? 0.02? Routine Chemistry?? LATEST RESULTS?? HISTORICAL RESULTS?? Sodium Level?? 07/07/23 11:25?? 139?? 02/28/23?? 138?? Potassium Level?? 07/07/23 11:25?? 4.0?? 02/28/23?? 3.7?? Chloride Level?? 07/07/23 11:25?? 111?? 02/28/23?? 106?? CO2?? 07/07/23 11:25?? 18 ??Low?? 02/28/23?? 22?? Alk Phos?? 07/07/23 11:25?? 83?? 02/28/23?? 88?? AST?? 07/07/23 11:25?? 25?? 02/28/23?? 20?? ALT?? 07/07/23 11:25?? 22?? 02/28/23?? 23?? BUN?? 07/07/23 11:25?? 13?? 02/28/23?? 16?? Glucose Level?? 07/07/23 11:25?? 89?? 02/28/23?? 85?? Creatinine Level?? 07/07/23 11:25?? 0.78?? 02/28/23?? 0.65?? BUN/Creat Ratio?? 07/07/23 11:25?? 16.7?? 02/28/23?? 24.6 ??High?? eGFR CKD-EPI?? 07/07/23 11:25?? 113?? 02/28/23?? 131?? Calcium Level?? 07/07/23 11:25?? 9.7?? 02/28/23?? 9.5?? Protein Total?? 07/07/23 11:25?? 8.0?? 02/28/23?? 8.4 ??High?? Albumin Level?? 07/07/23 11:25?? 4.3?? 02/28/23?? 4.5?? Globulin?? 07/07/23 11:25?? 3.7 ??High?? 02/28/23?? 3.9?? A/G Ratio?? 07/07/23 11:25?? 1.2?? 02/28/23?? 1.2?? Bilirubin Total?? 07/07/23 11:25?? 0.8?? 02/28/23?? 0.4?? Anion Gap?? 07/07/23 11:25?? 10.0?? 02/28/23?? 10.0?? Osmolality?? 07/07/23 11:25?? 277?? 02/28/23?? 276? Cardiac Isoenzymes?? LATEST RESULTS?? Troponin-I HS?? 07/07/23 11:25?? <2? Thyroid Studies?? LATEST RESULTS?? TSH?? 07/07/23 11:25?? 2.74? Electronically Signed on 07/07/23 02:04 PM Ned Abad MD Emergency department Discharge instructions * Ned Abad MD: PERFORM Event Display: ED Discharge Information Authored Date: [id number] ELLI ROSADO :2005 Age:17 years Sex:Female Visit Date:07/07/2023 Primary Care Physician: STEPHANI MITCHELL M.D. Discharge Instructions We would like to thank you for allowing us to assist you with your healthcare needs. The following includes patient education materials and information regarding your injury/illness. Diagnosis from Today's Visit Sinus tachycardia Discharge Vitals Temperature??(Oral) 97.7 ??F (36.5 ??C) Heart Rate??(Peripheral) 97 Heart Rate??(Monitored) 99 Respiratory Rate?? 31 Blood Pressure?? 127/93?? Height?? 57.09 in (145.000 cm) Weight??(Estimated) 160.96 lb (73.00 kg) Allergies Hayfever Strawberries What to Do Next Instructions from Your Care Team We found no evidence of any pathology in your lung, no evidence of a blood clot,??you have no evidence of heart failure, significant anemia or electrolyte abnormalities. ??I think your??exercise intolerance??is related to your??fast heart rates. ??While you are in the emergency department even walking across the room your heart rate shot up to the 130s.?? In the bed your heart rate was resting atalmost 120.?? This is higher than it should be.?? Take metoprolol tartrate 25 mg twice a day; monitor your heart rate using a pulse oximeter??several times a day and follow-up with your doctor regarding??the new medication, and monitoring of heart rate.? The metoprolol twice a day should keep your heart rate low and allow you better exercise tolerance.?? Return to emergency??if anything worsens including??chest pain, passing out??etc. ? You were treated today on an emergency basis; it may be hill to contact your primary care provider to notify them of your visit today. You may have been referred to your regular doctor or a specialist, please follow up as instructed. If your condition worsens or you can't get in to see the doctor, contact the Emergency Department. Medications What How Much When Why Instructions Next Dose New metoprolol (Metoprolol Tartrate 25 mg oral tablet) 1 tab Oral (given by mouth) 2 times a day Sinus tachycardia Pickup at [id number] Unchanged ketorolac (ketorolac 10 mg oral tablet) 1 tab Oral (given by mouth) Every 6 hours as needed for as needed for pain not to exceed 40 mg/ day and 5 days duration for all dose forms ?? Unchanged levothyroxine (levothyroxine 75 mcg (0.075 mg) oral tablet) TAKE ONE TABLET BY MOUTH EVERY DAY ?? Unchanged lisdexamfetamine (Vyvanse 20 mg oral capsule) TAKE ONE CAPSULE BY MOUTH EVERY DAY AFTER LUNCH ?? Unchanged lisdexamfetamine (Vyvanse 30 mg oral capsule) TAKE ONE CAPSULE BY MOUTH EVERY MORNING ?? Unchanged medroxyPROGESTERone (medroxyPROGESTERone 150 mg/ mL intramuscular suspension) INJECT 150MG INTRAMUSCULARLY EVERY 12 WEEKS ?? Pharmacy Information [id number]: [address] [place], [place] [id number] [phone] Angio Chest 07/07/2023 12:33 EDT XR Chest 1 View 07/07/2023 11:26 EDT Medications and Immunizations Administered Given Metoprolol Tartrate, 5 mg, 5 mg, IV Push Metoprolol Tartrate, 25 mg, Oral Lab Test Name Test Result Date/Time WBC 9.2 K/mcL 07/07/2023 11:25 EDT RBC 5.05 Million/mcL 07/07/2023 11:25 EDT Hgb 13.5 g/dL 07/07/2023 11:25 EDT Hct 40.6 % 07/07/2023 11:25 EDT MCV 80.4 fL 07/07/2023 11:25 EDT MCH 26.7 pg 07/07/2023 11:25 EDT MCHC 33.3 g/dL 07/07/2023 11:25 EDT RDW-CV 12.8 % 07/07/2023 11:25 EDT Platelets 424 K/mcL 07/07/2023 11:25 EDT MPV 9.6 fL 07/07/2023 11:25 EDT Neutro Auto 71.4 % 07/07/2023 11:25 EDT Lymph Auto 21.5 % 07/07/2023 11:25 EDT [place] Auto 5.7 % 07/07/2023 11:25 EDT Eos, Auto 0.80 % 07/07/2023 11:25 EDT Basophil Auto 0.4 % 07/07/2023 11:25 EDT Imm Gran Auto 0.2 % 07/07/2023 11:25 EDT Neutro Absolute 6.5 K/mcL 07/07/2023 11:25 EDT Lymph Absolute 2.0 K/mcL 07/07/2023 11:25 EDT [place] Absolute 0.5 K/mcL 07/07/2023 11:25 EDT Eos Absolute 0.1 K/mcL 07/07/2023 11:25 EDT Baso Absolute 0.0 K/mcL 07/07/2023 11:25 EDT Imm Gran Absolute 0.02 K/mcL 07/07/2023 11:25 EDT Sodium Level 139 mmol/L 07/07/2023 11:25 EDT Potassium Level 4.0 mmol/L 07/07/2023 11:25 EDT Chloride Level 111 mmol/L 07/07/2023 11:25 EDT CO2 18 mmol/L 07/07/2023 11:25 EDT Alk Phos 83 IntlUnit/L 07/07/2023 11:25 EDT AST 25 IntlUnit/L 07/07/2023 11:25 EDT ALT 22 IntlUnit/L 07/07/2023 11:25 EDT BUN 13 mg/dL 07/07/2023 11:25 EDT Glucose Level 89 mg/dL 07/07/2023 11:25 EDT Creatinine Level 0.78 mg/dL 07/07/2023 11:25 EDT BUN/Creat Ratio 16.7 07/07/2023 11:25 EDT eGFR CKD-EPI 113 mL/min/1.73 m2 07/07/2023 11:25 EDT Calcium Level 9.7 mg/dL 07/07/2023 11:25 EDT Protein Total 8.0 g/dL 07/07/2023 11:25 EDT Albumin Level 4.3 g/dL 07/07/2023 11:25 EDT Globulin 3.7 g/dL 07/07/2023 11:25 EDT A/G Ratio 1.2 g/dL 07/07/2023 11:25 EDT Bilirubin Total 0.8 mg/dL 07/07/2023 11:25 EDT Anion Gap 10.0 07/07/2023 11:25 EDT Osmolality 277 mOsm/kg 07/07/2023 11:25 EDT Troponin-I HS <2 ng/L 07/07/2023 11:25 EDT TSH 2.74 mcIntlUnit/mL 07/07/2023 11:25 EDT Patient/Risk Mgr Signature Patient Name:LORI ROSADOZAHIRA I have received this information and my questions have been answered. Patient/Risk Mgr Name: Patient/Risk Mgr Signature: Relationship to Patient: Witness Name/Signature: Date: Electronically Signed on: 07/07/2023 14:03 EDTSigned by:[facility] Patient Care team information Care Team Personnel Name: STEPHANI MITCHELL M.D. Position: No Access Member Role: Primary Care Physician Address: Address: [address] [place] [address], [place] [address] Name: Jackie Diez Position: Nurse Member Role: Registered Nurse Name: Ned Abad MD Position: Physician Member Role: ED Physician Address: Address: [facility] EMERGENCY DEPT [address] [place] [id number] Care Team Related Persons Name: ANGELA LEMUS
--- OUTSIDE RECORDS SUMMARY | 2024-11-01 22:20 | XMS_ITS | Encounter Summary ---
Author Organization [facility] Address [facility] [place] [address] Care Team Providers Care Pattern Finisher Name Role Phone Rohan Luevano DNP Primary Care Provider Encounter Details Date Type Department Care Team (Late st Contact Info) Description 05/22/2024 Orders Only Cardiology at [address] [address] Trae Delgadillo PA [facility] [address] Pre-syncope (Primary Dx) Social History Tobacco Use Types Packs/Day Years [...] on file documented as of this encounter Results * EP Tilt Table [...] documented in this encounter Visit Diagnoses Diagnosis Pre-syncope- Primary Syncope and collapse Pre-syncope Syncope and collapse documented in this encounter Care Teams Pattern Finisher Relationship Specialty Start Date End Date Rohan Luevano DNP [address] [place] [address] PCP - General Family Medicine 09/19/23 documented as of this encounter
--- OUTSIDE RECORDS SUMMARY | 2024-11-01 22:20 | XMS_ITS | Encounter Summary ---
Author Organization [facility] Address [facility] [place] [address] Care Team Providers Care Decorating Machine Operator Name Role Phone Rohan Luevano DNP Primary Care Provider Encounter Details Date Type Department Care Team (Latest Contact Info) Description 05/03/2024 Travel Social History Tobacco Use Types Packs/Day [...] on filedocumented in this encounter Care Teams Decorating Machine Operator Relationship Specialty Start Date End Date Rhoan Luevano DNP [address] [place] [id number] PCP - General Family Medicine 09/19/23 documented as of this encounter
--- OUTSIDE RECORDS SUMMARY | 2024-11-01 22:20 | XMS_ITS | Encounter Summary ---
Author Organization [facility] Address [facility] [place] [address] Care Team Providers Care Celery Packer Name Role Phone Rohan Luevano EUGENIO Primary Care Provider Reason for Visit * Reason Onset Date Comments Other 05/22/2024 Order request fo r Tilt Table test Encounter Details Date Type Department Care Team (Late st Contact Info) Description 05/22/2024 Telephone [place] [address] Demetrio Vuong MD [facility] [place] [address] Other (Order request for Tilt Table test /) Social History Tobacco Use Types Packs/Day Years Used Date Smoking Tobacco: Never Passive Smoke Exposure: Yes Smokeless Tobacco: Never Comments:mom and stepdad smo kes outside Sex and Gender Information Value Date Recorded Sex Assigned at Not on file Gender Identity Not on file Sexual Orientation Not on file documented as of this encounter Miscellaneous Notes * Telephone Encounter - Carolyn Bang RN - 05/22/2024 9:02 AM EDT Copied from CRM #[id number]. Topic: Specialty Dept CRMs - Orders >> May 22, 2024 8:57 AM Dani Feliz wrote: Orders Request Specialist: Relationship (if other than patient-full name): Amna- Cardiology Type of Request: [x] Input orders Type/Name of Order: Other: Tilt Table test Patient Requesting to Have Orders Sent to Facility Outside of [facility]: No Amna advised patient is coming in tomorrow for testing and they do not have order. documented in this encounter Plan of Treatment Not on file documented as of this encounter Visit Diagnoses Not on filedocumented in this encounter Care Teams Celery Packer Relationship Specialty Start Date End Date Rohan Luevano DNP [address] [place] [id number] PCP - General Family Medicine 09/19/23 documented as of this encounter
--- OUTSIDE RECORDS SUMMARY | 2024-11-01 22:20 | XMS_ITS | Encounter Summary ---
Author Organization [facility] Address [facility] [place] [address] Care Team Providers Care Child Nutrition Assistant Name Role Phone Rohan Luevano EUGENIO Primary Care Provider Encounter Details Date Type Department Care Team (Late st Contact Info) Description 01/30/2024 11:00 AM EDT [place] [address] Demetrio Vuong MD [facility] [place] [address] Tachycardia, unspecified; Postural dizziness Social History Tobacco Use Types Packs/Day Years [...] Sign Reading Time Taken Comments Blood Pressure 141/69 01/30/2024 11:14 AM EDT Pulse 95 01/30/2024 11:14 AM EDT Temperature - - Respiratory Rate - - Oxygen Saturation - - Inhaled Oxygen Concentration - - Weight 77.1 kg (170 lb) 01/30/2024 11:14 AM EDT pt report Height 144.8 cm (4' 9) 01/30/2024 11:14 AM EDT Body Mass Index 36.79 01/30/2024 11:14 AM EDT documented in this encounter Patient Instructions * Patient Instructions* Demetrio Vuong MD - 01/30/2024 11:00 AM EDT - please review attached information - please follow up in 3-6 months or after tilt table testing - please continue to follow with cardiology and primary doctor * Attachments The following attachments cannot be sent through Care Everywhere. * POTS (Postural Orthostatic Tachycardia Syndrome): General Info (Japanese) * Tilt Table Test (Japanese) documented in this encounter Progress Notes * Demetrio Vuong MD - 01/30/2024 11:00 AM EDT [facility] [place] Neurology Clinic Note Interval History 01-30-2024: - MRI epilepsy protocol 09-17-2023 was normal - taking Toprol IR 25 bid with some improvement - saw cardiology 10-13-2023, --> MCOT x14 days with target events corresponding only to sinus tachycardia --> TTE was normal - overall symptom burden similar, perhaps less severe symptoms/less vertigo feeling Presenting history: Violette Barrera is a 18 y.o., right-handed female presenting for evaluation of pre-syncopal episodes. Describes onset age 14 or 15, have continued and worseened in past 1.5 years. Feels dizzy/lightheaded while standing and walking around, worse with exertion. Has a sense of wooziness and lightheadedness. Always able to sit down/rest; not having kel syncope or injury/fall. Has blurry vision and difficulty focusing. No diplopia, visual loss. Has a sense of room and self in motion, no nausea or vomiting. [place] like going to fall but hasn't actually done this. No auditory changes or ear fullness. Per mother, Ms Barrera getes pale and her pupils widen. Rarely, has shifting stabbing chest pain or palpitations. Was evaluated in ED for this and Holter/EKG sinus tachy only. Metropolol was started for rate control, with some limited improvement. Cards outpatient follow-up is scheduled. One or two events of concern with right sided body numbness and heaviness with allodynia. This spared the face and lasted for minutes to hours which was atypical for her. Also can shut down/not talk for hours when overwhelmed or overly stressed. Sleeps about 10 hours daily, works at a [employer]. ROS notable for nocturia (multiple times nightly, stable for years) Atentional deficit disorder, on Vyvanse since 5th grade First event: ~age 13 Semiology & details: Aura: none Ictus: lightheadedness with some non-severe vertigo Postictal: not pronounced Frequency and severity: multiple times weekly to daily Provoking factors: standing/moving around/being up (never lying flat) Diurnal & catamenial patterns: none clearly identified Current medications: Toprol low dose PO Prior medication trials: None Risk factors for epilepsy: [] Head trauma [] RAWHIDE TRIMMER infection [x] complications - prematurity/apnea [x] (Complex) febrile seizures - age 1.5 years, ?>5 minutes got Diastat Rx after [] Family history of seizures/epilepsy [] Comorbid neurological disorder [] Developmental delay Eevaluation to date: Outpatient EEG: by report, normal routine EEG Jun 2023 Structural imaging: none Cardiac: EKG normal/sinus tachy; Holter sinus/sinus tachy (no clear events captured clinically, however) Review of Systems: Review of Systems Constitutional: Negative for chills, decreased appetite, weight gain and weight loss. HENT: Negative. Eyes: Positive for blurred vision. Negative for discharge, double vision, photophobia, vision loss in left eye and vision loss in right eye. Cardiovascular: Positive for chest pain (stabbing, migratory, worked up in ED once). Respiratory: Negative. Endocrine: Negative. Hematologic/Lymphatic: Negative. Skin: Negative. Musculoskeletal: Negative. Gastrointestinal: Negative. Genitourinary: Negative for dysuria, incomplete emptying and urgency. Nocturia Allergic/Immunologic: Negative. Allergies: Allergies Allergen Reactions Valier Unclassified Drug Hayfever pt reported Medications: Current Outpatient Medications: metoproloL tartrate (Lopressor) 25 mg tablet, Take 25 mg by mouth 2 times daily., Disp: , Rfl: lisdexamfetamine (VYVANSE) 20 mg Capsule, Take by mouth. Indications: take 20 mg every afternoon, Disp: , Rfl: levothyroxine (SYNTHROID) 75 mcg Tablet, Take 1 tablet by mouth daily., Disp: 15 tablet, Rfl: 0 ALBUTEROL INHL, Inhale into the lungs., Disp: , Rfl: FLUTICASONE PROPIONATE (FLOVENT HFA INHL), Inhale into the lungs., Disp: , Rfl: lisdexamfetamine (Vyvanse) 30 mg capsule, Take 30 mg by mouth every morning., Disp: , Rfl: LORATADINE ORAL, Take by mouth as needed., Disp: , Rfl: medroxyPROGESTERone (Depo-PROVERA) 150 mg/mL Suspension, Inject 150 mg into the muscle Every 12 weeks., Disp: , Rfl: History & active problems Patient Active Problem List Diagnosis Code 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 OBGYN: Having periods Social History Socioeconomic History Marital status: Single Spouse name: Not on file Number of children: Not on file Years of education: Not on file Highest education level: Not on file Occupational History Not on file Tobacco Use Smoking status: Never Passive exposure: Yes Smokeless tobacco: Never Tobacco comments: mom and stepdad smokes outside Vaping Use Vaping Use: Never used Substance and Sexual Activity Alcohol use: Not on file Drug use: Not on file Sexual activity: Not on file Other Topics Concern Not on file Social History Narrative Not on file Social Determinants of Health Financial Resource Strain: Not on file Food Insecurity: Not on file Transportation Needs: Not on file Physical Activity: Not on file Intimate Partner Violence: Not on file Housing Stability: Not on file Physical Examination: Vital signs: Patient Vitals for the past 24 hrs: Pulse BP 01/30/24 1114 95 141/69 General Exam: Well appearing young woman, accompanied by mother. HEENT: Nonicteric sclerae, PERRLA, EOMI. Oropharynx clear. Moist mucous membranes. Optic disk margins sharp OU; no papilledema HEART: Regular rate. LUNGS: No coughing or wheezing. Non-labored breathing. Equal air entry bilaterally. EXTREMITIES: Warm and dry in all limbs. Mental status: Alert, oriented to person, day of week, date/month/year, building/floor. Serial 7's with some trouble, RABBIT backwards easily. Follows simple and complex commands across midline. Language fluent in conversation. No dysarthria or paraphasic errors. Repetition and naming intact. No extinction to double-simultaneous sensory and visual stimulation Cranial nerves: II: visual acuity grossly intact. Coker intact to counting. III/IV/: PERRLA, EOMI without nystagmus, no ptosis V: facial sensation intact/symmetric. Normal masseter function VII: face symmetric at rest and with activation VIII: hearing intact to finger rub IX, X: uvula midline; palate elevates symmetrically XI - normal trapezius activation and strength XII - tongue protrudes midline Motor: Normal bulk. Normal tone in arms . Fine motor movements preserved, no bradykinesia. Normal facial expression. No decrement on hand open/close. No abnormal involuntary movements at rest or intention. Very mild postural tremor in fingers Power: LEFT RIGHT C5-6 Shoulder abduction 5 5 C5-6 Elbow flexion 5 U5 C6-8 Elbow extension 5 5 C7-T1 Digit II-V flexion / talent scout 5 5 L2-3 Hip flexion 5 5 L3-4 Knee extension 5 5 L4-5 Ankle dorsiflexion/inversion 5 5 L5-S2 Ankle plantarflexion 5 5 Sensory: Intact to light touch throughout Pronator drift absent DTR: LEFT RIGHT Comments Biceps C5-C6 2+ 2+ Brachioradialis C5-C6 2+ 2+ Triceps C6-C7 2+ 2+ Patellar L3-L4 2+ 2+ Plantar L5-S1 flexion flexion Achilles tendon S1-S2 2+ 2+ Coordination Crrwgg-oxib-wuuseo testing intact. KAMILLE, finger tapping smooth and symmetric Gait/station: Normal based stance. Equal stride length with symmetric armswing. Able to hop up from crouching to chair without symptoms easily. Diagnostic Studies: Had recent endocrine labs by primary, per report. Last CrCl CrCl cannot be calculated (No successful lab value found.). Last EKG & Holter NSR+ sinus tachy only Imaging MRI epilepsy protocol 09-17-2023 is normal Assessment In summary, this is an 18 y.o. woman who is presenting for chronic periods of presyncope/lightheadedness. These are present generally only while standing and active. She has documented tachycardia without hypotension postural change in the emergency room while symptomatic. No clinical features that are concerning for seizure or transient ischemic attack. Symptoms and family history support POTS. Cardiology evaluation to date without structural or electrophysiological abnormalities. Will recommend tilt table testing and -- if positive -- consider evaluation from an autonomic neurological specialist. Return to care ~4 months This visit was a total of 20 minutes which was spent on pre-charting, reviewing results of diagnostic studies, as well as patient education and counseling as detailed above. Demetrio Vuong MD [facility], Department of Neurology [facility] documented in this encounter Plan of Treatment Scheduled Orders Name Type Priority Associated Diagnoses Orde r Schedule Autonomic Function Test Neurology Routine Postural dizziness Expected: 02/06/2024, Expires: 01/29/2025 documented as of this encounter Visit Diagnoses Diagnosis Tachycardia, unspecified Postural dizziness Dizziness and giddiness documented in this encounter Care Teams Child Nutrition Assistant Relationship Specialty Start Date End Date Rohan Luevano DNP [address] [place] [id number] PCP - General Family Medicine 09/19/23 documented as of this encounter
--- OUTSIDE RECORDS SUMMARY | 2024-11-01 22:20 | XMS_ITS | Encounter Summary ---
Author Organization [facility] Address [facility] [place] [address] Care Team Providers Care Silk Folder Name Role Phone Rohan Luevano DNP Primary Care Provider Encounter Details Date Type Department Care Team (Late st Contact Info) Description 05/22/2024 Orders Only Cardiology at [address] [address] Trae Delgadillo, PA [facility] [place] [address] Social History Tobacco Use Types Packs/Day Years [...] on filedocumented in this encounter Care Teams Silk Folder Relationship Specialty Start Date End Date Rohan Luevano DNP [address] [place] [id number] PCP - General Family Medicine 09/19/23 documented as of this encounter
--- OUTSIDE RECORDS SUMMARY | 2024-11-01 22:20 | XMS_ITS | Encounter Summary ---
Author Organization [facility] [place] [address] Care Team Providers Care Blindstitch Machine Operator Name Role Phone Rohan Luevano EUGENIO Primary Care Provider Reason for Visit * Reason Onset Date Comments Medication Problem 02/14/2024 Encounter Details Date Type Department Care Team (Late st Contact Info) Description 02/14/2024 [place] [address] Demetrio Vuong MD [facility] [place] [address] Medication Problem Social History Tobacco Use Types Packs/Day Years Used Date Smoking Tobacco: Never Passive Smoke Exposure: Yes Smokeless Tobacco: Never Comments:mom and stepdad smo kes outside Sex and Gender Information Value Date Recorded Sex Assigned at Not on file Gender Identity Not on file Sexual Orientation Not on file documented as of this encounter Miscellaneous Notes * Telephone Encounter - Mahi Dykes RN - 02/19/2024 1:31 PM EDT Spoke with pt mom. No other needs at this time * Telephone Encounter - Felisa Hu - 02/16/2024 10:40 AM EDT Patient's mother returned Mahi's call please call [phone] * Telephone Encounter - Mahi Dykes RN - 02/16/2024 10:21 [address]T Response from Dr Vuong: She is supposed to have a tilt table/autonomic testing and should hold the beta kyree the day before and of the test. We may have more specific recommendations in our protocol for autonomic testing. Looks like she is scheduled for EMG? Or is the tilt table testing in the EMG room? Don't eat or drink anything with caffeine for eight hours before your test. Keep well hydrated with noncaffeinated beverages the day before your test. Don't drink alcohol for 12 hours before your test. Don't smoke for three hours before your test. Left message awaiting call back * Telephone Encounter - Carolyn Bang RN - 02/14/2024 1:44 PM EDT Copied from CRM #[id number]. Topic: Specialty Dept CRMs - Medication Issues >> February 14, 2024 1:40 PM Mahi Cast wrote: Medication Issues Specialist : Demetrio Vuong Relationship (if other than patient-full name): self Reason for call: Medication Issue (if symptom based used Triage Subtopic) Message/information for the nurse: Y Name of Medication: Beta kyree (unsure the name) Issue with the medication: Temitope states patient has EMG on 02/22 and is taking beta kyree medications. Please advise if patient should stop taking this and how . Please call back anytime at . documented in this encounter Plan of Treatment Not on file documented as of this encounter Visit Diagnoses Not on filedocumented in this encounter Care Teams Blindstitch Machine Operator Relationship Specialty Start Date End Date Rohan Luevano DNP [address] [place] [id number] PCP - General Family Medicine 09/19/23 documented as of this encounter
--- OUTSIDE RECORDS SUMMARY | 2024-11-01 22:20 | XMS_ITS | Encounter Summary ---
Author Organization [facility] Address [facility] [place] [address] Care Team Providers Care Mud Tank Operator Name Role Phone Rohan Luevano DNP Primary Care Provider Encounter Details Date Type Department Care Team (Latest Contact Info) Description 07/08/2024 Travel Social History Tobacco Use Types Packs/Day [...] on filedocumented in this encounter Care Teams Mud Tank Operator Relationship Specialty Start Date End Date Rohan Luevano DNP [address] [place] [id number] PCP - General Family Medicine 09/19/23 documented as of this encounter
--- OUTSIDE RECORDS SUMMARY | 2024-11-01 22:20 | XMS_ITS | Encounter Summary ---
Author Organization [facility] Address [place] [address] Care Team Providers Care Search Consultant Name Role Phone Rohan Luevano DNP Primary Care Provider Encounter Details Date Type Department Care Team (Latest Contact Info) Description 05/23/2024 Travel Social History Tobacco Use Types Packs/Day [...] on filedocumented in this encounter Care Teams Search Consultant Relationship Specialty Start Date End Date Rohan Luevano DNP [address] [place] [id number] PCP - General Family Medicine 09/19/23 documented as of this encounter
--- OUTSIDE RECORDS SUMMARY | 2024-11-01 22:20 | XMS_ITS | Encounter Summary ---
Author Organization Count Includes [facility] Address [facility] [place] [address] Care Team Providers Care Engine Service Repairer Name Role Phone Rohan Luevano EUGENIO Primary Care Provider [phone] Encounter Details Date Type Department Care Team (Late st Contact Info) Description 05/03/2024 10:30 AM EDT Office [place] [address] Demetrio Vuong MD [facility] [place] [address] Postural dizziness with presyncope Social History Tobacco Use Types Packs/Day Years [...] Sign Reading Time Taken Comments Blood Pressure 111/62 05/03/2024 10:22 AM EDT Pulse 71 05/03/2024 10:22 AM EDT Temperature - - Respiratory Rate - - Oxygen Saturation - - Inhaled Oxygen Concentration - - Weight 81.6 kg (180 lb) 05/03/2024 10:22 AM EDT Height 144.8 cm (4' 9.01) 05/03/2024 10:22 AM E DT Body Mass Index 38.94 05/03/2024 10:22 AM EDT documented in this encounter Patient Instructions * Attachments The following attachments cannot be sent through Care Everywhere. * POTS (Postural Orthostatic Tachycardia Syndrome): General Info (Swiss) documented in this encounter Progress Notes * Demetrio Vuong MD - 05/03/2024 10:30 AM EDT [facility] Neurology Clinic Note Interval History 05/03/2024 - no significant change in symptom burden - able to continue working; boss and co-workers are accomodating - pending May tilt table test (not seen in eDH however) - had been instructed to increase salt intake but was not sure about this - QSART testing was unremarkable Interval History 01-30-2024: - MRI epilepsy protocol [...] self in motion, no nausea or vomiting. [place] like going to fall but hasn't actually [...] about 10 hours daily, works at a [employer]. 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 The proximal leg site was limited by persistent leak. Heart rate variability during deep breathing and Valsalva was normal with no evidence of cardiovagal dysfunction. Vbrs-gq-[id number] BP response during the Valsalva maneuver demonstrated normal waveforms without evidence of vasomotor dysfunction. Orthostatic vital signs with active standing were normal without evidence for orthostatic hypotension or excessive orthostatic tachycardia. In summary, all results are normal without evidence of autonomic neuropathy or autonomic dysfunction. Review of Systems: Review of Systems Constitutional: [...] Nocturia Allergic/Immunologic: Negative. Allergies: Allergies Allergen Reactions [place] Unclassified Drug Hayfever pt reported Medications: Current Outpatient Medications: acetaminophen (Tylenol) 80 mg chewable tablet, Take 80 mg by mouth every 4 hours as needed for Pain. Or liqud, Disp: , Rfl: levothyroxine (Synthroid) 75 mcg tablet, Take 1 tablet by mouth daily., Disp: 15 tablet, Rfl: 0 metoproloL tartrate (Lopressor) 25 mg tablet, Take 25 mg by mouth 2 times daily., Disp: , Rfl: lisdexamfetamine (VYVANSE) 20 mg Capsule, Take by mouth. Indications: take 20 mg every afternoon, Disp: , Rfl: ALBUTEROL INHL, Inhale into the lungs., Disp: [...] and stepdad smokes outside Vaping Use Vaping status: Never Used Substance and Sexual Activity Alcohol use: Not [...] for the past 24 hrs: Pulse BP 05/03/24 1022 71 111/62 General Exam: Well appearing young woman, accompanied [...] 5 5 C7-T1 Digit II-V flexion / engine lathe tender 5 5 L2-3 Hip flexion 5 5 L3-4 Knee extension 5 5 L4-5 Ankle dorsiflexion/inversion 5 5 L5-S2 Ankle plantarflexion 5 5 Sensory: Intact to light touch throughout Pronator drift absent DTR: LEFT RIGHT Biceps C5-C6 2+ 2+ Brachioradialis C5-C6 2+ 2+ Triceps C6-C7 2+ 2+ Patellar L3-L4 2+ 2+ Plantar L5-S1 flexion flexion Achilles tendon S1-S2 2+ 2+ Coordination Lttuor-oqra-[id number] testing intact. KAMILLE, finger tapping smooth and [...] consider evaluation from an autonomic neurological specialist. In interim, we discussed high-salt snack supplements and frequent rest/breaks. Return to care after tilt table This visit was a total of 20 minutes which was spent on pre-charting, reviewing results of diagnostic studies, as well as patient education and counseling as detailed above. Demetrio Vuong MD [facility], Department of Neurology [facility] documented in this encounter Plan of Treatment Not on file documented as of this encounter Visit Diagnoses Diagnosis Postural dizziness with presyncope documented in this encounter Care Teams Engine Service Repairer Relationship Specialty Start Date End Date Rohan Luevano DNP [address] [place] [address] [place] [address] PCP - General Family Medicine 09/19/23 documented as of this encounter
--- OUTSIDE RECORDS SUMMARY | 2024-11-01 22:20 | XMS_ITS | Clinical Summary ---
Author Organization [facility] Address [facility] [place] [address] Care Team Providers Care Assistant Inventory Manager Name Role Phone Rohan Luevano EUGENIO Primary Care Provider Allergies Active Allergy Reactions Criticality Noted Date Comments [place] 03/23/2023 Unclassified Drug 03/23/2023 Hayfever pt reported Medications Medication Sig Dispensed Refills Start Date End Date Status lisdexamfetamine (Vyvanse) 30 mg capsule Take 30 mg by mouth every morning. Active LORATADINE ORAL Take by mouth as needed. Active ALBUTEROL INHL Inhale into the lungs as needed. Active FLUTICASONE PROPIONATE (FLOVENT HFA INHL) Inhale into the lungs as needed. Active lisdexamfetamine (VYVANSE) 20 mg CapsuleIndications:darrian e 20 mg every afternoon Take by mouth. Indications: take 20 mg every afternoon Active metoproloL tartrate (Lopressor) 25 mg tablet Take 25 mg by mouth 2 times daily. 08/08/2023 Active medroxyPROGESTERone (Depo-PROVERA) 150 mg/mL Suspension Inject 150 mg into the muscle Every 12 weeks. 05/27/2023 Active acetaminophen (Tylenol) 80 mg chewable tablet Take 80 mg by mouth every 4 hours as needed for Pain. Or liqud Active levothyroxine (Synthroid) 75 mcg tabletIndications:Acqu ired hypothyroidism Take 1 tablet by mouth daily. 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 Attention deficit hyperactiv ity disorder (ADHD), combined type 02/13/2013 Obesity, pediatric, BMI 95th to 98th percentile for age 0502/13/2013 Oppositional defiant disorder 09/03/2012 Family History Medical History Relation Comments Allergies Brother Depression Father Seizure Disorder Father Hearing Loss Maternal Grandmother Heart Disease Maternal Grandmother Hyperlipidemia Maternal Grandmother Asthma Mother Thyroid Disease Mother hypothyroidism Crohn Disease Paternal Grandfather Depression Paternal Grandmother Rheumatoid Arthritis Paternal Grandmother Relation Status Comments Brother Father Alive Maternal Grandmother Mother Alive Paternal Grandfather Paternal Grandmother Social History Tobacco Use Types Packs/Day Years Used Date Smoking Tobacco: Never Passive Smoke Exposure: Yes Smokeless Tobacco: Never Tobacco Cessation:Counseling Given: Not Answered Comments:mom and stepdad smokes outside Sex and Gender Information Value Date Recorded Sex Assigned at Not on file Gender Identity Not on file Sexual Orientation Not on file Last Filed Vital Signs Vital Sign Reading Time Taken Comments Blood Pressure 125/79 07/08/2024 12:53 PM EDT Pulse 61 07/08/2024 12:53 PM EDT Temperature 36.7 ??C (98.1 ??F) 03/19/2024 10:42 AM E DT Respiratory Rate 16 03/19/2024 10:42 AM EDT Oxygen Saturation 98% 07/08/2024 12:53 PM EDT Inhaled Oxygen Concentration - - Weight 84.6 kg (186 lb 6.4 oz) 07/08/2024 12:53 PM EDT Height 144.8 cm (4' 9) 07/08/2024 12:53 PM EDT Body Mass Index 40.34 07/08/2024 12:53 PM EDT Plan of Treatment Health Maintenance Due Date Last Done Comments Chlamydia Screening 2019 HPV vaccine (1 - 3-dose series) 2019 HIV screen 2022 Hepatitis C Screening 2022 Lipid Screening 2022 Hepatitis B vaccine (0-59 yrs) (1) 2023 Pneumococcal Vaccine: At-Risk 5-49yrs (1 of 2 - PCV) 0 2023 Tetanus/Diphtheria/Pertussis Vaccines (1 - Tdap) 10/10 Covid-19 Vaccine ( - 2023-25 season) 2024 Influenza (Flu) vaccine (1 o f 1 - Influenza standard series) 06/02/2024 Care Teams Assistant Inventory Manager Relationship Specialty Start Date End Date Rohan Luevano DNP [address] [place], [place] [id number] PCP - General Family Medicine 09/19/23
--- OUTSIDE RECORDS SUMMARY | 2024-11-01 22:20 | XMS_ITS | Continuity of Care Document ---
Author Organization [facility] Address [address] [place] [id number] Care Team Providers Care Drug Regulatory Affairs Specialist Name Role Phone GELY CALERO DNP Primary Care Physician Encounter LTTL_MI FIN NBR [id number] Date(s): 09/07/24 - 09/07/[address] [phone] Encounter Diagnosis Chest wall pain(Discharge Diagnosis) - 09/07/24 Discharge Disposition: Home or Self Care Attending Physician: Juvencio Kilgore MD Admitting Physician: Juvencio Kilgore MD Allergies, Adverse Reactions, Alerts Substance Criticality Severity Reaction Reaction Severity Status Strawberries Unable to assess criticality Unknown Active Hayfever Unable to assess criticality Unknown Active Assessment and Plan Extracted from: Title:ED Provider Note Author:CHRISTINE Simms RN Date:09/07/24 Assessment/Plan 1.??Chest wall pain??R07.89 Patient Education Chest Wall Pain Medications ketorolac 10 mg oral tablet 10 mg = 1 tab, Oral, every 6 hr, PRN as needed for pain, not to exceed 40 mg/day and 5 days duration for all dose forms, # 12 cap, 0 Refill(s), Pharmacy: [id number], 145, cm, 02/28/23 13:35:00 EDT, Height/Length [...] BID, # 60 tab, 0 Refill(s), Pharmacy: [facility] #[id number], 145, cm, 07/07/23 11:18:00 EDT, Height/Length Dosing, 73, kg, 07/07/23 11:18:00 EDT, Weight Dosing Start Date: 07/07/23 Status: Ordered Vyvanse 20 mg oral capsule TAKE ONE CAPSULE BY MOUTH EVERY DAY AFTER LUNCH Start Date: 02/28/23 Status: Ordered Vyvanse 30 mg oral capsule TAKE ONE CAPSULE BY MOUTH EVERY MORNING Start Date: 02/28/23 Status: Ordered Mental Status 09/07/24 Eye Opening Response [place] Spontaneous ly Best Verbal Response Marcos Oriented Best Motor Response Marcos Obeys comman ds Marcos Coma Score 15 Results Radiology Reports * Exam Date Time Procedure Performing Provider Status 09/07/24 5:22 PM XR Ribs w/ PA Chest Left [place], Jennifer ; Auth (Verified) Notes: (XR Ribs w/ PA Chest Left) Reason For Exam: CHEST WALL PAIN XR Ribs w/ PA Chest Left PROCEDURE INFORMATION: Exam: XR Left Ribs with PA Chest Exam date and time: 09/07/2024 5:33 PM Age: 18 years old Clinical indication: Chest wall pain; Left TECHNIQUE: Imaging protocol: Radiologic exam of the left ribs with PA chest. Views: 3 views COMPARISON: CT ANGIO CHEST 07/07/2023 12:12 PM FINDINGS: Lungs: Unremarkable. No consolidation. Pleural spaces: Unremarkable. No pleural effusion. No pneumothorax. Heart/Mediastinum: Unremarkable. No cardiomegaly. Bones/joints: Unremarkable. IMPRESSION: No acute findings. THIS DOCUMENT HAS BEEN ELECTRONICALLY SIGNED BY VU DUNCAN MD on 09/07/2024 07:08 PM Final Signed by: Vu Duncan MD Signed (Electronic Signature): 09/07/2024 7:08 pm Vital Signs Most recent to oldest [Reference Range]: 1 Temperature Tympanic [36.6-38.1 Deg C] 3 6.5 Deg C *LOW* (09/07/24 4:43 PM) Heart Rate Monitored [60-100 bpm] 88 bpm (09/07/24 4:43 PM) Respiratory Rate [12-24 br/min] 17 br/mi n (09/07/24 4:43 PM) Blood Pressure [90-120/60-80 mmHg] 130/8 6mmHg *HI* (09/07/24 4:43 PM) Mean Arterial Pressure, Cuff [65-140 mmH g] 101 mmHg (09/07/24 4:43 PM) Weight 83.91 kg (09/07/24 4:43 PM) Weight Dosing 83.910 kg (09/07/24 4:43 PM) Height 145 cm (09/07/24 4:43 PM) Body Mass Index 39.91 kg/m2 (09/07/24 4:43 PM) Body Mass Index Percentile 98.33 1 (09/07/24 4:43 PM) Height/Length Percentile 0.25 2 (09/07/24 4:43 PM) Weight Percentile 95.43 3 (09/07/24 4:43 PM) 1Result Comment: ^~:!Percentile Source - CDC 2Result Comment: ^~:!Percentile Source -[facility] 3Result Comment: ^~:!Percentile Source -[facility] Social History Social History Type Response Tobacco Never tobacco user T obacco Use:. Sex Sex Representation Female (finding) Hospital Discharge Instructions Patient Education 09/07/2024 16:52:25 Chest Wall Pain Chest Wall Pain Chest wall pain is pain in or around the bones and muscles of your chest. Sometimes, an injury causes this pain. Excessive coughing or overuse of arm and chest muscles may also cause chest wall pain.Sometimes, the cause may not be known. This pain may take several weeks or longer to get better. Follow these instructions at home: Managing pain, stiffness, and swelling ??? If directed, put ice on the painful area: ??? Put ice in a plastic bag. ??? Place a towel between your skin and the bag. ??? Leave the ice on for 20 minutes, 2???3 times per day. Activity ??? Rest as told by your health care provider. ??? Avoid activities that cause pain. These include any activities that use your chest muscles or your abdominal and side muscles to lift heavy items. Ask your health care provider what activities are safe for you. General instructions ??? Take mflz-jpu-nkfgwxy and prescription medicines only as told by your health care provider. ??? Do not use any products that contain nicotine or tobacco, such as cigarettes, e-cigarettes, andchewing tobacco. These can delay healing after injury. If you need help quitting, ask your health care provider. ??? Keep all follow-up visits as told by your health care provider. This is important. Contact a health care provider if: ??? You have a fever. ??? Your chest pain becomes worse. ??? You have new symptoms. Get help right away if: ??? You have nausea or vomiting. ??? You feel sweaty or light-headed. ??? You have a cough with mucus from your lungs (sputum) or you cough up blood. ??? You develop shortness of breath. These symptoms may represent a serious problem that is an emergency. Do not wait to see if the symptoms will go away. Get medical help right away. Call your local emergency services (911 in the [place] Do not drive yourself to the hospital. Summary ??? Chest wall pain is pain in or around the bones and muscles of your chest. ??? Depending on the cause, it may be treated with ice, rest, medicines, and avoiding activities that cause pain. ??? Contact a health care provider if you have a fever, worsening chest pain, or new symptoms. ??? Get help right away if you feel light-headed or you develop shortness of breath. These symptomsmay be an emergency. This information is not intended to replace advice given to you by your health care provider. Make sure you discuss any questions you have with your health care provider. Document Revised: 11/30/2021 Document Reviewed: 12/03/2021 [employer] Patient Education ?? 2022 [employer]. Physician Emergency department Note * Crystal Pereira, SYED: PERFORM Event Display: ED Note Physician Authored Date: [id number] ELLI CALDERA :2005 Age:18 years Sex:Female Visit Date:09/07/2024 Primary Care Physician: GELY CALERO DNP Basic Information Time Seen: Crystal Pereira APRN / 09/07/2024 16:32 Chief Complaint x 3 days , continous stabbing pain under left breast ?? hurts worse when bending head down and lifting left breast History Of Present Illness: Patient is a 18-year-old female who presents today with a chief complaint of left sided anterior chest wall and rib pain. ??She reports over the past 3 days she has noted inter??acute stabbing pain under the left breast, states that it is exacerbated with??forward flexion and??lifting of the breasttissue.?? She denies??recalling trauma or injury.?? She denies any chest pain or shortness of breath, no fever chills or bodyaches. Review of Systems: see hpi Physical Exam Vitals & Measurements T:??36.5?C ??(Tympanic)?? HR:??88??(Monitored)?? RR:??17?? BP:??130/86?? SpO2:??100%?? HT:??145??cm?? HT:??0.25??(Percentile)?? WT:??83.91??kg?? WT:??95.43??(Percentile)?? BMI:??39.91?? BMI:??98.33??(Percentile)?? Pain Score:??4?? Skin: No concerning lesions in examined areas. Head: Normal cephalic without trauma or injury. Neck: Supple, nontender, normal range of motion Eye: Pupils reactive. ??Conjunctiva clear. Sclera nonicteric. ??No swelling, obvious foreign bodies. ??Extraocular movement intact. ENT ear: Normal external, canal clear, TMs normal bilaterally. ??Nose: No discharge, normal mucosa,no swelling. ??Sinuses: Nontender to percussion. ??Oropharynx: Normal external, mucosal without mass, lesions, ulcerations. ??Dentition is intact. ??Tonsils not enlarged. ??No erythema, exudate, lesions, uvula midline. Cardiovascular: Regular rate and rhythm. ??No murmur, rubs, or gallops. Respiratory: Clear to auscultation bilaterally. ??No wheezes, rales, rhonchi. Chest: No deformity. ??Newness with palpation to the??anterior??ribs 6 and 7, midclavicular line.??No erythema or bruising,?? no??crepitus ?? Medical Decision Making: Patient was evaluated emergency department for anterior chest wall pain. ??Vital signs were obtained and reviewed??she is normotensive, nontachycardic and afebrile,??and x-ray of the left??ribs and PA chest was obtained which is negative for any acute findings.?? Exam is unremarkable although thereis??mild palpable tenderness. ??She received??acetaminophen for pain control,??I recommended that she continue to monitor, use ice and heat and take pccn-enf-xvttaul analgesia as??needed. ??I recommended that she reach out to her primary care for recheck. Procedure No Qualifying Data Assessment/Plan 1.??Chest wall pain??R07.89 Patient Education Chest Wall Pain Medication Reconciliation Unchanged ketorolac (ketorolac 10 mg oral tablet)1 [...] intramuscular suspension)INJECT 150MG INTRAMUSCULARLY EVERY 12 WEEKS. ?? metoprolol (Metoprolol Tartrate 25 mg oral tablet)1 tab Oral (given by mouth) 2 times a day. Refills: 0. Problem List/Past Medical History Ongoing No qualifying data Historical No qualifying data Medication Administration Given acetaminophen, 650 mg, Oral Allergies Hayfever Strawberries Social History Electronic Cigarette/Vaping Electronic Cigarette Use: Never. Tobacco Never tobacco user Tobacco Use:. Diagnostic Results XR Ribs w/ PA Chest Left 09/07/2024 19:08 EST XR Ribs w/ PA Chest Left ?? 09/07/24 17:33:11 PROCEDURE INFORMATION: Exam: XR Left Ribs with PA Chest Exam date and time: 09/07/2024 5:33 PM Age: 18 years old Clinical indication: Chest wall pain; Left ?? TECHNIQUE: Imaging protocol: Radiologic exam of the left ribs with PA chest. Views: 3 views ?? COMPARISON: CT ANGIO CHEST 07/07/2023 12:12 PM ?? FINDINGS: Lungs: Unremarkable. No consolidation. Pleural spaces: Unremarkable. No pleural effusion. No pneumothorax. Heart/Mediastinum: Unremarkable. No cardiomegaly. Bones/joints: Unremarkable. ?? IMPRESSION: No acute findings. ? THIS DOCUMENT HAS BEEN ELECTRONICALLY SIGNED BY VU DUNCAN MD on 09/07/2024 07:08 PM ?? Signed By: Vu Duncan MD Electronically Signed on 09/07/2024 19:50 EST Crystal Pereira APRN Emergency department Discharge instructions * Crystal Pereira APRN: PERFORM Event Display: ED Discharge Information Authored Date: [id number] ELLI CALDERA :2005 Age:18 years Sex:Female Visit Date:09/07/2024 Primary Care Physician: GELY CALERO DNP Discharge Instructions We would like to thank you for allowing us to assist you with your healthcare needs. The following includes patient education materials and information regarding your injury/illness. Diagnosis from Today's Visit Chest wall pain Discharge Vitals Temperature??(Tympanic) 97.7 ??F (36.5 ??C) Heart Rate??(Monitored) 88 Respiratory Rate?? 17 Blood Pressure?? 130/86?? SpO2?? 100% Height?? 57.09 in (145 cm) Weight?? 185.02 lb (83.91 kg) BMI?? 39.91 Allergies Hayfever Strawberries What to Do Next Instructions from Your Care Team I would recommend continuing??acetaminophen for pain, you may use ice or heat??if that is somethingthat would provide you comfort. ??Your x-ray is not concerning for any underlying process, this could just be??as we discussed,??musculoskeletal??strain or intercostal??strain. ??I would recommend following up with your primary care for recheck.?? Seek urgent or emergent care for any worsening or concerning symptoms You were treated today on an emergency [...] How Much When Why Instructions Next Dose Unchanged ketorolac (ketorolac 10 mg oral tablet) [...] INJECT 150MG INTRAMUSCULARLY EVERY 12 WEEKS ?? Unchanged metoprolol (Metoprolol Tartrate 25 mg oral tablet) 1 tab Oral (given by mouth) 2 times a day Sinus tachycardia Education Materials Chest Wall Pain Chest wall pain is pain in or around the bones and muscles of your chest. Sometimes, an injury causes this pain. Excessive coughing or overuse of arm and chest muscles may also cause chest wall pain.Sometimes, the cause may not be known. This pain may take several weeks or longer to get better. Follow these instructions at home: Managing pain, stiffness, and swelling ? If directed, put ice on the painful area: ? Put ice in a plastic bag. ? Place a towel between your skin and the bag. ? Leave the ice on for 20 minutes, 2???3 times per day. Activity ? Rest as told by your health care provider. ? Avoid activities that cause pain. These include any activities that use your chest muscles or your abdominal and side muscles to lift heavy items. Ask your health care provider what activities are safe for you. General instructions ? Take gzyt-ryy-zmumwgp and prescription medicines only as told by your health care provider. ? Do not use any products that contain nicotine or tobacco, such as cigarettes, e- cigarettes, and chewing tobacco. These can delay healing after injury. If you need help quitting, ask your health care provider. ? Keep all follow-up visits as told by your health care provider. This is important. Contact a health care provider if: ? You have a fever. ? Your chest pain becomes worse. ? You have new symptoms. Get help right away if: ? You have nausea or vomiting. ? You feel sweaty or light-headed. ? You have a cough with mucus from your lungs (sputum) or you cough up blood. ? You develop shortness of breath. These symptoms may represent a serious problem that is an emergency. Do not wait to see if the symptoms will go away. Get medical help right away. Call your local emergency services (911 in the [place] Do not drive yourself to the hospital. Summary ? Chest wall pain is pain in or around the bones and muscles of your chest. ? Depending on the cause, it may be treated with ice, rest, medicines, and avoiding activities that cause pain. ? Contact a health care provider if you have a fever, worsening chest pain, or new symptoms. ? Get help right away if you feel light-headed or you develop shortness of breath. These symptoms maybe an emergency. This information is not intended to replace advice given to you by your health care provider. Make sure you discuss any questions you have with your health care provider. Document Revised: 11/30/2021 Document Reviewed: 12/03/2021 [employer]ioLogs Patient Education ?? 2022 [employer] Tests Performed Medications and Immunizations Administered Given acetaminophen, 650 mg, Oral Patient/Field Sales Engineer Signature Patient Name:ELLI CALDERA I have received this information and my questions have been answered. Patient/Field Sales Engineer Name: Patient/Field Sales Engineer Signature: Relationship to Patient: Witness Name/Signature: Date: Electronically Signed on: 09/07/2024 17:52 ESTSigned by:CAROLINA Patient Care team information Care Team Personnel Name: GELY CALERO DNP Position: No Access Member Role: Primary Care Physician [address]: [address] Care Team Related Persons Name: ANGELA LEMUS Insurance Providers Guarantor name: ELLI CALDERA Health Plan Information #: 1 Payer: [place] Member Number: [id number] Policy Number: ALENA Health Plan Information #: 2 Payer: [place] Member Number: [id number] Policy Number: ALENA
--- OUTSIDE RECORDS SUMMARY | 2024-11-01 22:20 | XMS_ITS | Encounter Summary ---
Author Organization [facility] Address [facility] [place] [address] Care Team Providers Care Custom Wood Stair Builder Name Role Phone Rohan Luevano DNP Primary Care Provider [phone] Encounter Details Date Type Department Care Team (Latest Contact Info) Description 06/14/2024 Travel Social History Tobacco Use Types Packs/Day [...] on filedocumented in this encounter Care Teams Custom Wood Stair Builder Relationship Specialty Start Date End Date Rohan Luevano DNP [address] [place] [id number] PCP - General Family Medicine 09/19/23 documented as of this encounter
--- OUTSIDE RECORDS SUMMARY | 2024-11-01 22:20 | XMS_ITS | Encounter Summary ---
[place] [address] Care Team Providers Care Golf Range Attendant Name Role Phone Rohan Luevano DNP Primary Care Provider [phone] Encounter Details Date Type Department Care Team (Latest Contact Info) Description 02/23/2024 9:00 AM EDT Procedure [place] [address] Postural dizziness with presyncope Social History Tobacco Use Types Packs/Day Years Used Date Smoking Tobacco: Never Passive Smoke Exposure: Yes Smokeless Tobacco: Never Comments:mom and stepdad smo kes outside Sex and Gender Information Value Date Recorded Sex Assigned at Not on file Gender Identity Not on file Sexual Orientation Not on file documented as of this encounter Progress Notes * Artie Farnsworth MD - 02/23/2024 9:00 AM EDT Violette Arvind Yamilethtenzin is a patient of Rohan Luevano DNP referred by Dr Vuong for autonomictesting given presyncope and tachycardia and concern for autonomic dysfunction The complete findings will be reported elsewhere (see scanned documents). The following medications are listed in the chart, though a medication reconciliation was not completed formally at this visit: Current Outpatient Medications: metoproloL tartrate (Lopressor) 25 mg tablet, Take 25 mg by mouth 2 times daily., Disp: , Rfl: medroxyPROGESTERone (Depo-PROVERA) 150 mg/mL Suspension, Inject 150 mg into the muscle Every 12 weeks., Disp: , Rfl: lisdexamfetamine (VYVANSE) 20 mg [...] by mouth as needed., Disp: , Rfl: Briefly, QSART showed normal sweat volume at three sites, with no evidence of sudomotor dysfunction. The proximal leg site was limited by persistent leak. Heart rate variability during deep breathing and Valsalva was normal with no evidence of cardiovagal dysfunction. Ycbs-xi-qkls BP response during the Valsalva maneuver demonstrated normal waveforms without evidence of vasomotor dysfunction. Orthostatic vital signs with active standing were normal without evidence for orthostatic hypotension or excessive orthostatic tachycardia. In summary, all results are normal without evidence of autonomic neuropathy or autonomic dysfunction. Artie Farnsworth MD 02/29/2024 * Please note, this note was dictated using Timeful software. While it was reviewed for accuracy, please excuse any typographical errors that were missed. documented in this encounter Plan of Treatment Not on file documented as of this encounter Visit Diagnoses Diagnosis Postural dizziness with presyncope documented in this encounter Care Teams Golf Range Attendant Relationship Specialty Start Date End Date Rohan Luevano DNP [address] [place] [id number] PCP - General Family Medicine 09/19/23 documented as of this encounter
--- OUTSIDE RECORDS SUMMARY | 2024-11-01 22:20 | XMS_ITS | Encounter Summary ---
Author Organization [facility] Address [facility] [place] [address] Care Team Providers Care Executive Services Administrator Name Role Phone Rohan Luevano DNP Primary Care Provider Encounter Details Date Type Department Care Team (Latest Contact Info) Description 01/30/2024 Travel Social History Tobacco Use Types Packs/Day [...] on filedocumented in this encounter Care Teams Executive Services Administrator Relationship Specialty Start Date End Date Rohan Luevano DNP [address] [place] [id number] PCP - General Family Medicine 09/19/23 documented as of this encounter
--- OUTSIDE RECORDS SUMMARY | 2024-11-01 22:20 | XMS_ITS | Encounter Summary ---
Author Organization [facility] Address [address] [place] [address] Care Team Providers Care Racker Octave Board Name Role Phone Unavailable Primary Care Provider Unavailabl e Encounter Details Date Type Department Care Team (Late st Contact Info) Description 07/12/2022 Lab Requisition [facility] [place] [facility] Medicine - [address] [address] Outr Resulting Lab, Provider Social History Tobacco Use Types Packs/Day Years Used Date Smoking Tobacco: Never Assessed Comments Unknown Sex and Gender Information Value Date Recorded Sex Assigned at Not on file Legal Sex Female 11:30 EDT Gender Identity Not on file Sexual Orientation Not on file documented as of this encounter Plan of Treatment Not on file documented as of this encounter Procedures Procedure Name Priority Date/Time Associated Diagnosis Comments CELIAC DISEASE PANEL Routine 07/12/2022 11:04 EDT documented in this encounter Results * CELIAC DISEASE PANEL (07/12/2022 11:04 EDT) Tissue Transglutaminase Antibody IGA 2.6 <4.0 U/mL 07/13/2022 11:38 EDT [facility] Comment: A negative result may be due to IgA deficiency and does not rule out celiac disease. ? Negative: ??<4.0 U/mL ? Weak Positive: 4.0 -1 0.0 U/mL ? Positive: ??>10.0 U/mL Results were obtained with the [employer] QUANTA Lite R h-tTG IgA BRIAN assay on the [employer] DSX. The use of this assay and normal range (result interpretation) has not been established for pediatric samples. IgA 191 40 - 290 mg/dL 07/13/2022 11:38 EDT [facility] Celiac Disease Interpretation Negative Serology. Celiac disease unlikely. Approximately 10% of patients with celiac disease are seronegative. Patients who are already adhering to a gluten-free diet may also be seronegative. If celiac disease is highly clinically suspected, referral to gastroenterology for additional evaluation is recommended. 07/13/2022 11:38 EDT [facility] Blood VENOUS BLOOD / Unknown 07/12/2022 11:04 EDT 07/12/2022 16:45 EDT us Provider Outr Resulting Lab IMMUNOLOGY AND SEROL OGY ORDERABLES Final Result [facility] [address] [place] [address] documented in this encounter Visit Diagnoses Not on filedocumented in this encounter
--- OUTSIDE RECORDS SUMMARY | 2024-11-01 22:20 | XMS_ITS | Encounter Summary ---
[place] [address] Care Team Providers Care Conservation Scientist Name Role Phone Rohan Luevano EUGENIO Primary Care Provider Encounter Details Date Type Department Care Team (Latest Contact Info) Description 03/19/2024 12:00 PM EDT Laboratory Appointment Lab [address] [place] [address] Acquired autoimmune hypothyroidism Social History Tobacco Use Types Packs/Day Years [...] Procedure Name Priority Date/Time Associated Diagnosis Comments TSH CASCADE Routine 03/19/2024 12:09 PM EDT Acquired autoimmune hypothyroidism documented in this encounter Results * TSH [place] (03/19/2024 12:09 PM EDT) Thyroid Stimulating Hormone 2.46 0.27 - 4.20 mcIU/mL [facility] Comment: Reference Interval (mcIU/mL): Females: ??First Trimester: 0.23-3.88 ??Second Trimester: 0.22-3.90 ??Third Trimester: 0.44-4.66 Blood 03/19/2024 12:0 9 PM EDT 03/19/2024 12:28 PM EDT Narrative Resulting Agency Comment Spec In Lab Urban Comer MD CHEMISTRY ORDERABLES Performing Organization Address City/State/[facility] [[email or web address]] Co de Phone Number [facility] [place] [address] documented in this encounter Visit Diagnoses Diagnosis Acquired autoimmune hypothyroidism Other specified acquired hypothyroidism documented in this encounter Care Teams Conservation Scientist Relationship Specialty Start Date End Date Rohan Luevano DNP [address] [place] [id number] PCP - General Family Medicine 09/19/23 documented as of this encounter
--- OUTSIDE RECORDS SUMMARY | 2024-11-01 22:20 | XMS_ITS | Clinical Summary ---
Author Organization [facility] Address [address] [place] [address] Care Team Providers Care Aircraft General Repair Mechanic Name Role Phone Unavailable Primary Care Provider Unavailabl e Social History Tobacco Use Types Packs/Day Years Used Date Smoking Tobacco: Never Assessed Comments Unknown Sex and Gender Information Value Date Recorded Sex Assigned at Not on file Legal Sex Female 11:30 EDT Gender Identity Not on file Sexual Orientation Not on file Plan of Treatment Health Maintenance Due Date Last Done Comments Hepatitis C Screen 2004 Hepatitis B Vaccine (1 of 3 - 19+ 3-dose series) 10/10 COVID-19 Vaccine (2023- season) 2024
--- OUTSIDE RECORDS SUMMARY | 2024-11-01 22:20 | XMS_ITS | Encounter Summary ---
Author Organization Formerly [facility], [facility] Address [facility] [place] [address] Care Team Providers Care Customer Development Manager Name Role Phone Rohan Luevano EUGENIO Primary Care Provider Encounter Details Date Type Department Care Team (Late st Contact Info) Description 06/14/2024 11:00 AM EDT [place] [address] Demetrio Vuong MD [facility] [place] [address] Postural dizziness with presyncope Social History Tobacco [...] Sign Reading Time Taken Comments Blood Pressure 115/64 06/14/2024 10:43 AM EDT Pulse 87 06/14/2024 10:43 AM EDT Temperature - - Respiratory Rate - - Oxygen Saturation 99% 06/14/2024 10:43 AM EDT Inhaled Oxygen Concentration - - Weight 83 kg (183 lb) 06/14/2024 10:43 AM EDT Height 144.8 cm (4' 9) 06/14/2024 10:43 AM EDT Body Mass Index 39.6 06/14/2024 10:43 AM EDT documented in this encounter Patient Instructions * Attachments The following attachments cannot be sent through Care Everywhere. * Autonomic Dysfunction: General Info (Cambodian) documented in this encounter Progress Notes * Demetrio Vuong MD - 06/14/2024 11:00 AM EDT [facility] Neu[facility] Clinic Note Interval History 05/03/2024 - no significant change in symptom burden - tilt table testing was unremarkable in May - no new concerning neurological symptoms or features Presenting history: Violette Barrera is a 18 [...] self in motion, no nausea or vomiting. [place] like going to fall but hasn't actually [...] about 10 hours daily, works at a [employer]. ROS notable for nocturia (multiple times nightly, [...] factors for epilepsy: [] Head trauma [] LEATHER TOOLER infection [x] complications - prematurity/apnea [x] (Complex) [...] normal with no evidence of cardiovagal dysfunction. Moph-rr-wdnx BP response during the Valsalva maneuver demonstrated [...] Nocturia Allergic/Immunologic: Negative. 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 OBGYN: [...] Not on file Physical Examination: Vital signs: No data found. General Exam: Well appearing young woman, accompanied [...] 5 5 C7-T1 Digit II-V flexion / receivables specialist 5 5 L2-3 Hip flexion 5 5 L3-4 Knee extension 5 5 L4-5 Ankle dorsiflexion/inversion 5 5 L5-S2 Ankle plantarflexion 5 5 Sensory: Intact to light touch throughout Pronator drift absent DTR: LEFT RIGHT Biceps C5-C6 2+ 2+ Brachioradialis C5-C6 2+ 2+ Triceps C6-C7 2+ 2+ Patellar L3-L4 2+ 2+ Plantar L5-S1 flexion flexion Achilles tendon S1-S2 2+ 2+ Coordination Xdzwdt-djtv-vophgf testing intact. KAMILLE, finger tapping smooth and [...] to date without structural or electrophysiological abnormalities. Given absence of dysautonomia on QSART and tilt table testing, neurological sub- specialty referral would be low yield. Will recommend consolidating care with primary care and cardiology (follow-up already scheduled). This visit was a total of 20 minutes which was spent on pre-charting, reviewing results of diagnostic studies, as well as patient education and counseling as detailed above. Demetrio Vuong MD [facility], Department of Neurology [facility] documented in this encounter Plan of Treatment Not on file documented as of this encounter Visit Diagnoses Diagnosis Postural dizziness with presyncope documented in this encounter Care Teams Customer Development Manager Relationship Specialty Start Date End Date Rohan Luevano DNP [address] [place] [id number] PCP - General Family Medicine 09/19/23 documented as of this encounter
--- OUTSIDE RECORDS SUMMARY | 2024-11-01 22:20 | XMS_ITS | Encounter Summary ---
[place] [address] Care Team Providers Care Collar Separator Name Role Phone Rohan Luevano EUGENIO Primary Care Provider Encounter Details Date Type Department Care Team (Late st Contact Info) Description 03/19/2024 Telephone [place] [phone] Maribeth Ward MD Social History Tobacco Use Types Packs/Day Years Used Date Smoking Tobacco: Never Passive Smoke Exposure: Yes Smokeless Tobacco: Never Comments:mom and stepdad smo kes outside Sex and Gender Information Value Date Recorded Sex Assigned at Not on file Gender Identity Not on file Sexual Orientation Not on file documented as of this encounter Miscellaneous Notes * Telephone Encounter - Maribeth Ward MD - 03/19/2024 2:09 PM EDT I called and left a voicemail for Marisol regarding the TSH results from today: Latest Reference Range & Units 03/19/24 12:09 TSH 0.27 - 4.20 mcIU/mL 2.46 TSH is normal. Patient should be continued on the same Levothyroxine dose - 75mcg daily. Refill sent to preferred pharmacy on file. Patient can continue thyroid monitoring care with primary care provider. She can be referred us to again in the future as needed. D/w Dr. Comer documented in this encounter Plan of Treatment Not on file documented as of this encounter Visit Diagnoses Diagnosis Acquired hypothyroidism Unspecified hypothyroidism documented in this encounter Care Teams Collar Separator Relationship Specialty Start Date End Date Rohan Luevano DNP [address] [place] [address] PCP - General Family Medicine 09/19/23 documented as of this encounter
--- OUTSIDE RECORDS SUMMARY | 2024-11-01 22:20 | XMS_ITS | Encounter Summary ---
Author Organization Formerly [facility] [place] [address] Care Team Providers Care Naval Marine Engineer Name Role Phone Rohan Luevano DNP Primary Care Provider [phone] Reason for Visit * Consultation (Routine) - Closed Specialty Diagnoses / Procedures Referred By Magdi nixon Referred To Contact Endocrinology Diagnoses Autoimmune thyroiditis Other specified abnormal uterine and vaginal bleeding Rohan Luevano DNP [address] [place] [address] [facility] [address] [place] [address] Referral ID Status Reason Start Date Expiration Date V isits Requested Visits Authorized [id number] Closed Consult, Test & Treat PCP Updated and/or Approved 09/19/2023 09/18/2024 6 6 Encounter Details Date Type Department Care Team ([facility] st Contact Info) Description 03/19/2024 11:00 AM EDT Office [place] [address] Farida Comer MD [facility] [place] [address] Acquired autoimmune hypothyroidism Social History Tobacco Use Types Packs/Day Years Used Date Smoking Tobacco: Never Passive Smoke Exposure: Yes Smokeless Tobacco: Never Comments:mom and kannan smo kes outside Sex and Gender Information Value Date Recorded Sex Assigned at Not on file Gender Identity Not on file Sexual Orientation Not on file documented as of this encounter Last Filed Vital Signs Vital Sign Reading Time Taken Comments Blood Pressure 115/76 03/19/2024 10:42 AM EDT Pulse 92 03/19/2024 10:42 AM EDT Temperature 36.7 ??C (98.1 ??F) 03/19/2024 10:42 AM E DT Respiratory Rate 16 03/19/2024 10:42 AM EDT Oxygen Saturation 95% 03/19/2024 10:42 AM EDT Inhaled Oxygen Concentration - - Weight 84.2 kg (185 lb 9.6 oz) 03/19/2024 10:42 AM EDT Height 144.8 cm (4' 9.01) 03/19/2024 10:42 AM E DT Body Mass Index 40.15 03/19/2024 10:42 AM EDT documented in this encounter Progress Notes * Farida Comer MD - 03/19/2024 11:00 AM EDT [facility] New Patient Reason for visit: hypothyroidism History: Violette Barrera is a 18 y.o. female with a history of ADHD, elevated BMI, hypothyroidism,here for evaluation of hypothyroidism. She was previously followed by peds endocrinology. Last visit with them in 01/2020. She presents with her mother Marisol, who helps provide additional medical history. Diagnosed in 2011, and started on Levothyroxine. Current dose is 75mcg daily; dose has been stable over the years. She tries not to miss any doses. Maybe misses 2 doses every few weeks, but double the doses on the following day when she forgets. Takes the medication in the morning and waits at least 30min to have breakfast. Gained 20lbs in past year and feels fatigued at times. She is currently seeing a medical technologist clinical for elevated heart rate, which causes her pain and dizziness. She is currently undergoing work up, and has a table tilt test scheduled for May. Family Hx: mother has hypothyroidism, cousin had thyroid cancer, one maternal aunt with hyperthyroidism. Last TSH was done in 10/2022 and it was TSH 1.43. She is not trying to conceive at this time. She is not sure if menses are regular, but hey occur every month. She came off OCPs about 1 year ago. Past Medical History: Past Medical History: Diagnosis Date ADHD Asthma 03/03/2016 Hypothyroidism Obesity, pediatric, BMI 95th to 98th percentile for age 502/13/2013 Oppositional defiant disorder 09/03/2012 Short stature 06/07/2015 Past Surgical History: Denies Medications: Current Outpatient Medications: metoproloL tartrate (Lopressor) [...] by mouth as needed., Disp: , Rfl: Allergies: [place] and Unclassified drug Family history: Family History Problem Relation Age of Onset Thyroid Disease Mother 26 hypothyroidism Asthma Mother Seizure Disorder Father Depression Father Allergies Brother Hearing Loss Maternal Grandmother Hyperlipidemia Maternal Grandmother Heart Disease Maternal Grandmother Rheumatoid Arthritis Paternal Grandmother Depression Paternal Grandmother Crohn Disease Paternal Grandfather Social history: Smoking: denies Etoh: denies Illicit drug use: denies Occupation: works at a [employer] Review of systems: As noted in HPI, all other systems reviewed and negative Patient Vitals for the past 24 hrs: Temp Pulse Resp BP SpO2 03/19/24 1042 36.7 ??C (98.1 ??F) 92 16 115/76 95 % Physical Exam: General: No acute distress, well appearing Eyes: no proptosis, no erythema Neck: supple, non-tender to palpation, no mass or goiter noted Resp: breathing comfortably; chest expansion bilaterally Extremities: no clubbing; no cyanosis Neuro: strength grossly intact; no tremor Psych: AAO x 3; normal affect; memory intact Labs/Imagin10/12/2022: TSH 1.43 Assessment and Plan: Violette Barrera is a 18 y.o. female with a history of ADHD, elevated BMI, hypothyroidism,here for evaluation of hypothyroidism. She was previously followed by peds endocrinology. Last visit with them in 01/2020. Currently on Levothyroxine 75mcg daily. She is clinically symptomatic with recent weight gain and fatigue. Today we discussed obtaining TSH cascade and adjust the medication dose as necessary. If TSHcomes back normal, I will continue the same Levothyroxine dose. Alirio lives over 1 hour away from our clinic. She has a primary care provider, and can be safely followed by PCP for hypothyroidism. Her TSH goal is to be at the normal range. I explained to patient today that if she becomes , she should let us or her PCP know immediately because she might needs a stronger dose of Levothyroxine to maintain a healthy . She verbalized understanding. I will contact patient when lab results are available. Case d/w Dr. Nahomi Ward, PGY-6 [facility] * Farida Comer MD - 03/19/2024 11:00 AM EDT Patient seen with her mother present and case discussed with Dr. Ward. I agree with the assessment and plan as documented and was involved in all medical decision making, with the following addendum: Check TFTs today, will adjust dose of Levothyroxine as needed. If TFTs are stable, can transitioncare to her PCP, which patient and her mother are agreeable to. Farida Comer MD Acid Operatordigital marketing coordinator Endocrinology [facility] documented in this encounter Miscellaneous Notes * Addendum Note - Farida Comer MD - 03/19/2024 11:00 AM EDTAddended by: FARIDA COMER on: 03/20/2024 09:44 AM Modules accepted: Level of Service documented in this encounter Plan of Treatment Not on file documented as of this encounter Results * TSH [place] (03/19/2024 12:09 PM EDT) Thyroid Stimulating Hormone 2.46 0.27 - 4.20 mcIU/mL [facility] Comment: Reference Interval (mcIU/mL): Females: ??First Trimester: 0.23-3.88 ??Second Trimester: 0.22-3.90 ??Third Trimester: 0.44-4.66 Blood 03/19/2024 12:0 9 PM EDT 03/19/2024 12:28 PM EDT Narrative Resulting Agency Comment Spec In Lab Farida Comer MD CHEMISTRY ORDERABLES [facility] [place] [address] documented in this encounter Visit Diagnoses Diagnosis Acquired autoimmune hypothyroidism Other specified acquired hypothyroidism documented in this encounter Care Teams Naval Marine Engineer Relationship Specialty Start Date End Date Rohan Luevano DNP [address] [place] [address] [place] [address] PCP - General Family Medicine 09/19/23 documented as of this encounter
--- OUTSIDE RECORDS SUMMARY | 2024-11-01 22:20 | XMS_ITS | Encounter Summary ---
Author Organization [facility] [place] [address] Care Team Providers Care Lead Architect Name Role Phone Rohan Luevano EUGENIO Primary Care Provider Reason for Visit * Reason Onset Date Comments Appointment 01/30/2024 Encounter Details Date Type Department Care Team (Late st Contact Info) Description 01/30/2024 [place] [address] Demetrio Vuong MD [facility] [place] [address] Appointment Social History Tobacco Use Types Packs/Day Years Used Date Smoking Tobacco: Never Passive Smoke Exposure: Yes Smokeless Tobacco: Never Comments:mom and stepdad smo kes outside Sex and Gender Information Value Date Recorded Sex Assigned at Not on file Gender Identity Not on file Sexual Orientation Not on file documented as of this encounter Miscellaneous Notes * Telephone Encounter - Татьяна Dawn - 03/07/2024 2:58 PM EDT Autonomic testing complete. * Telephone Encounter - Татьяна Dawn - 01/30/2024 3:01 PM EDT Copied from [facility] #[id number]. Topic: Specialty Dept CRMs - Generic Call >> Jan 30, 2024 11:57 AM Rosalia Cast wrote: Specialist: Demetrio Vuong MD Relationship (if other than patient-full name): Temitope Shaw - Mom Reason for Call: Mom of patient called and stated that she was unable to get the patients after visit summary and attached readings printed at the front load trash truck driver and would like these mailed to the home address on file. Mom stated that she is also looking to get the patients test scheduled. Please call to assist. Autonomic testing ordered. documented in this encounter Plan of Treatment Not on file documented as of this encounter Visit Diagnoses Not on filedocumented in this encounter Care Teams Lead Architect Relationship Specialty Start Date End Date Rohan Luevano DNP [address] [place] [address] PCP - General Family Medicine 09/19/23 documented as of this encounter
--- OUTSIDE RECORDS SUMMARY | 2024-11-01 22:20 | XMS_ITS | Encounter Summary ---
Author Organization [facility] [place] [address] Care Team Providers Care Market Researcher Name Role Phone Rohan Luevano EUGENIO Primary Care Provider Encounter Details Date Type Department Care Team (Late st Contact Info) Description 11/09/2023 Telephone Cardiology at [address] [address] Nay Sheikh MD [facility] [place] [address] Social History Tobacco Use Types Packs/Day Years Used Date Smoking Tobacco: Never Passive Smoke Exposure: Yes Smokeless Tobacco: Never Comments:mom and stepdad smo kes outside Sex and Gender Information Value Date Recorded Sex Assigned at Not on file Gender Identity Not on file Sexual Orientation Not on file documented as of this encounter Miscellaneous Notes * Telephone Encounter - Nay Sheikh MD - 11/09/2023 8:47 AM EST Patient was updated on [employer]iop[employer] results. Is appreciative. Reviewed that there was significant sinustachycardia with rates from 80-180. No significant arrhythmias seen. Appreciate that ~24 diary entries were noted, which typically correlated with sinus tachycardia. Violette had no questions or concerns. Will plan to follow up the TTE that is scheduled. Nay Sheikh MD Pulp Tester documented in this encounter Plan of Treatment Not on file documented as of this encounter Visit Diagnoses Not on filedocumented in this encounter Care Teams Market Researcher Relationship Specialty Start Date End Date Rohan Luevano DNP [address] [place] [address] PCP - General Family Medicine 09/19/23 documented as of this encounter
--- OUTSIDE RECORDS SUMMARY | 2024-11-01 22:20 | XMS_ITS | Encounter Summary ---
Author Organization Formerly [facility] Address [facility] [place] [address] Care Team Providers Care Document Processing Specialist Name Role Phone Rohan Luevano DNP Primary Care Provider Encounter Details Date Type Department Care Team (Latest Contact Info) Description 03/19/2024 Travel Social History Tobacco Use Types Packs/Day [...] on filedocumented in this encounter Care Teams Document Processing Specialist Relationship Specialty Start Date End Date Rohan Luevano DNP [address] [place] [address] PCP - General Family Medicine 09/19/23 documented as of this encounter
--- OUTSIDE RECORDS SUMMARY | 2024-11-01 22:20 | XMS_ITS | Encounter Summary ---
Author Organization [facility] Address [facility] [place] [address] Care Team Providers Care Bench Inspector Name Role Phone Rohan Luevano DNP Primary Care Provider Encounter Details Date Type Department Care Team (Latest Contact Info) Description 02/23/2024 Travel Social History Tobacco Use Types Packs/Day [...] on filedocumented in this encounter Care Teams Bench Inspector Relationship Specialty Start Date End Date Rohan Luevano DNP [address] [place] [address] PCP - General Family Medicine 09/19/23 documented as of this encounter
--- OUTSIDE RECORDS SUMMARY | 2024-11-01 22:20 | XMS_ITS | Continuity of Care Document ---
Author Organization [facility] Address [address] [place] [phone] Care Team Providers Care Continuous Dryout Operator Name Role Phone STEPHANI MITCHELL M.D. Primary Care Physi desirae Encounter LTTL_MA FIN NBR [id number] Date(s): 02/28/23 - 02/28/[address] [id number]- Encounter Diagnosis Chest wall pain(Discharge Diagnosis) - 02/28/23 Discharge Disposition: Home or Self Care Attending Physician: Sunil Brasher MD Admitting Physician: Sunil Brasher MD Allergies, Adverse Reactions, Alerts Substance Reaction Severity Status Strawberries Unknown Active Hayfever Unknown Active Functional Status 02/28/23 Other exposure to Infectious Disease Non e Medications ketorolac 10 mg oral tablet 10 mg = 1 tab, Oral, every 6 hr, PRN as needed for pain, not to exceed 40 mg/day and 5 days duration for all dose forms, # 12 cap, 0 Refill(s), Pharmacy: [id number], 145, cm, 02/28/23 13:35:00 EDT, Height/Length Dosing, 73.94, kg, 02/28/23 13:35... Start Date: 02/28/23 Status: Ordered levothyroxine 75 mcg (0.075 mg) oral tablet TAKE ONE TABLET BY MOUTH EVERY DAY Start Date: 02/28/23 Status: Ordered medroxyPROGESTERone 150 mg/mL intramuscular suspension INJECT 150MG INTRAMUSCULARLY EVERY 12 WEEKS Start Date: 02/28/23 Status: Ordered Vyvanse 20 mg oral capsule TAKE ONE CAPSULE BY MOUTH EVERY DAY AFTER LUNCH Start Date: 02/28/23 Status: Ordered Vyvanse 30 mg oral capsule TAKE ONE CAPSULE BY MOUTH EVERY MORNING Start Date: 02/28/23 Status: Ordered Mental Status 02/28/23 Eye Opening Response Ione Spontaneous ly Best Verbal Response Marcos Oriented Best Motor Response Ione Obeys comman ds Amrcos Coma Score 15 Results Laboratory List Name Date CBC w/ Diff 02/28/23 Comprehensive Metabolic Panel (CMP) 02/28 Troponin-I 02/28/23 Automated Diff 02/28/23 Most recent to oldest [Reference Range]: 1 WBC [4.8-10.8 K/mcL] 9.4 K/mcL (02/28/23 1:58 PM) RBC [4.20-5.40 Million/mcL] 5.22 Million /mcL (02/28/23 1:58 PM) Neutro Auto [42.2-75.2 %] 74.9 % (02/28/23 1:58 PM) Lymph Auto [20.5-51.1 %] 18.0 % *LOW* (02/28/23 1:58 PM) Titus Auto [1.7-9.3 %] 5.9 % (02/28/23 1:58 PM) Basophil Auto [0.0-0.8 %] 0.5 % (02/28/23 1:58 PM) BUN [8-26 mg/dL] 16 mg/dL (02/28/23 1:58 PM) Glucose Level [74-106 mg/dL] 85 mg/dL (02/28/23 1:58 PM) Potassium Level [3.5-5.1 mmol/L] 3.7 mmo l/L (02/28/23 1:58 PM) Baso Absolute [0.0-0.2 K/mcL] 0.0 K/mcL (02/28/23 1:58 PM) MCV [81.0-99.0 fL] 81.8 fL (02/28/23 1:58 PM) AST [15-41 IntlUnit/L] 20 IntlUnit/L (02/28/23 1:58 PM) ALT [14-54 IntlUnit/L] 23 IntlUnit/L (02/28/23 1:58 PM) MCHC [32.0-36.0 g/dL] 32.8 g/dL (02/28/23 1:58 PM) Osmolality [275-295 mOsm/kg] 276 mOsm/kg (02/28/23 1:58 PM) Troponin-I [<=0.05 ng/mL] <0.01 ng/mL (02/28/23 1:58 PM) Sodium Level [134-143 mmol/L] 138 mmol/L (02/28/23 1:58 PM) Lymph Absolute [1.2-3.4 K/mcL] 1.7 K/mcL (02/28/23 1:58 PM) Hct [37.0-47.0 %] 42.7 % (02/28/23 1:58 PM) Calcium Level [8.9-10.3 mg/dL] 9.5 mg/dL (02/28/23 1:58 PM) Titus Absolute [0.1-0.6 K/mcL] 0.6 K/mcL (02/28/23 1:58 PM) Albumin Level [3.5-5.0 g/dL] 4.5 g/dL (02/28/23 1:58 PM) Protein Total [6.5-8.1 g/dL] 8.4 g/dL *HI* (02/28/23 1:58 PM) MCH [27.0-31.0 pg] 26.8 pg *LOW* (02/28/23 1:58 PM) Neutro Absolute [1.4-6.5 K/mcL] 7.0 K/mc L *HI* (02/28/23 1:58 PM) Bilirubin Total [0.2-1.2 mg/dL] 0.4 mg/d L (02/28/23 1:58 PM) Hgb [12.0-16.0 g/dL] 14.0 g/dL (02/28/23 1:58 PM) Alk Phos [38-130 IntlUnit/L] 88 IntlUnit /L (02/28/23 1:58 PM) MPV [7.4-10.4 fL] 9.1 fL (02/28/23 1:58 PM) Platelets [130-400 K/mcL] 386 K/mcL (02/28/23 1:58 PM) CO2 [22-32 mmol/L] 22 mmol/L (02/28/23 1:58 PM) Eos Absolute [0.0-0.2 K/mcL] 0.0 K/mcL (02/28/23 1:58 PM) Chloride Level [98-111 mmol/L] 106 mmol/ L (02/28/23 1:58 PM) RDW-CV [11.5-14.5 %] 12.5 % (02/28/23 1:58 PM) A/G Ratio 1.2 *NA* (02/28/23 1:58 PM) BUN/Creat Ratio [8.0-20.0] 24.6 *HI* (02/28/23 1:58 PM) Globulin 3.9 *NA* (02/28/23 1:58 PM) Imm Gran Absolute 0.02 *NA* (02/28/23 1:58 PM) Imm Gran Auto [0.0-0.5 %] 0.2 % (02/28/23 1:58 PM) Creatinine Level [0.44-1.00 mg/dL] 0.65 mg/dL (02/28/23 1:58 PM) Anion Gap [3.0-12.0] 10.0 (02/28/23 1:58 PM) Eos, Auto [0.00-3.00 %] 0.50 % (02/28/23 1:58 PM) eGFR CKD-EPI [>=60 mL/min/1.73 m2] 131 m L/min/1.73 m2 (02/28/23 1:58 PM) Radiology Reports * Exam Date Time Procedure Performing Provider Status 02/28/23 2:01 PM XR Chest 1 View Simi Oro; Aut h (Verified) Notes: (XR Chest 1 View) Reason For Exam: pain XR Chest 1 View EXAM DESCRIPTION: XR Chest 1 View 02/28/2023 INDICATION: PAIN COMPARISON: 09/15/2015 FINDINGS: Clear lungs with no focal infiltrate or pulmonary edema. Normal cardiomediastinal contour. No significant pleural effusion or pneumothorax. Thoracolumbar scoliosis, convex left in the thoracic region IMPRESSION: No active chest disease. JOB #: [id number] Final Signed by: Elias Branham MD Signed (Electronic Signature): 02/28/2023 2:05 pm Vital Signs Most recent to oldest [Reference Range]: 1 2 Temperature Temporal Artery [36-38 Deg C ] 37.3 Deg C (02/28/23 1:12 PM) Peripheral Pulse Rate [60-100 bpm] 96 bp m (02/28/23 2:00 PM) 104 bpm *HI* (02/28/23 1:12 PM) Respiratory Rate [12-24 br/min] 16 br/mi n (02/28/23 1:12 PM) Blood Pressure [90-140/60-90 mmHg] 115/9 3mmHg (02/28/23 2:00 PM) 123/90mmHg (02/28/23 1:12 PM) Mean Arterial Pressure Cuff 102 mmHg (02/28/23 2:00 PM) Weight Dosing 73.94 kg (02/28/23 1:35 PM) Weight Estimated 73.94 kg (02/28/23 1:12 PM) Height/Length Dosing 145.000 cm (02/28/23 1:35 PM) Height/Length Estimated 145.000 cm (02/28/23 1:12 PM) Social History Social History Type Response Tobacco Never tobacco user T obacco Use:. Sex Hospital Discharge Instructions Patient Education 02/28/2023 13:36:19 Chest Wall Pain Chest Wall Pain Chest [...] safe for you. General instructions ??? Take iqnt-kww-dbiitve and prescription medicines only as told by [...] with your health care provider. Document Revised: 12/03/2021 Document Reviewed: 12/03/2021 [employer] Patient Education ?? 2021 [employer] Discharge instructions * Event Display: Discharge Instructions Physician Emergency department Note * Sunil Brasher MD: PERFORM Event Display: ED Note Physician Authored Date: [id number] ELLI ROSADO :2005 Age:17 years Sex:Female Visit Date:02/28/2023 Primary Care Physician: STEPHANI MITCHELL M.D. Basic Information Time Seen: Sunil Brasher MD / 02/28/2023 13:40 Chief Complaint Pt. reports chest pain, dizziness, tremors, and blurred vision that started yesterday. Denies SOB. Asthma hx. History Of Present Illness: Patient states that yesterday she began to have??chest pain??and some lightheadedness and blurry vision. ??She states that it did not bother her overnight but then today has been??almost constant. ??She has not taken anything for the pain. ??She states currently??does not feel dizzy??and does not have blurry vision. ??She denies recent fever chills cough denies increased stress??or anxiety latelyor other problems. ??Patient states that she is not Review of Systems: Review of systems negative other than that stated above Physical Exam Vitals & Measurements T:??37.3?C ??(Temporal Artery)?? HR:??96??(Peripheral)?? RR:??16?? BP:??115/93?? SpO2:??100%?? HT:??145.000??cm?? WT:??73.94??kg??(Estimated)?? O2 Therapy:??Room air?? General: Alert and oriented, well nourished, no acute distress. Eye: PERRL, EOMI, normal conjunctiva. HENT: Normocephalic,??normal hearing, moist oral mucosa, no scleral icterus, . Neck: Supple, non-tender, no carotid bruits, no JVD, no lymphadenopathy. No rigidity Lungs: Clear to auscultation and percussion, non-labored respiration. Heart: Normal rate, regular rhythm, no murmur, gallop or edema. Abdomen: Soft, non-tender, non-distended, normal bowel sounds, no masses. Musculoskeletal: Normal range of motion and strength, no tenderness or swelling. Skin: Skin is warm, dry and appropriate for ethnicity, no rashes or lesions. Neurologic: Awake, alert and oriented X4, CN II-XII intact. Psychiatric: Cooperative, appropriate mood and affect. Procedure No Qualifying Data Reexamination/Reevaluation Patient given Toradol on repeat evaluation she states that she feels much better. 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 ??It could be??viral in nature??but the diagnosis will be musculoskeletal chest pain.?? She will be prescribed??Toradol??and will return for worsening symptoms Assessment/Plan 1.??Chest wall pain??R07.89 Orders: ketorolac 10 mg oral tablet, 10 mg = 1 tab, Oral, every 6 hr, PRN as needed for pain, not to [id number] mg/day and 5 days duration for all dose forms, # 12 cap, 0 Refill(s), Pharmacy: [id number], 145, cm, 02/28/23 13:35:00 EDT, Height/Length Dosing, 73.94, kg, 02/28/23 13:35... Discharge Patient, 02/28/23 14:35:00 EDT Patient Education Chest Wall Pain Medication Reconciliation New Prescription ketorolac (ketorolac 10 mg oral tablet)1 tab Oral (given by mouth) every 6 hours as needed as needed for pain. not to exceed 40 mg/day and 5 days duration for all dose forms. Refills: 0. ?? Unchanged levothyroxine (levothyroxine 75 mcg (0.075 [...] Historical No qualifying data Medication Administration Given Toradol, 15 mg, IV Push Allergies Hayfever Strawberries Social History Electronic Cigarette/Vaping Electronic Cigarette Use: Never. Tobacco Never tobacco user Tobacco Use:. Diagnostic Results XR Chest 1 View 02/28/2023 14:07 EDT XR Chest 1 View ?? 02/28/23 14:05:16 EXAM DESCRIPTION: XR Chest 1 View ?? 02/28/2023 ?? INDICATION: PAIN ?? COMPARISON: 09/15/2015 ?? FINDINGS: Clear lungs with no focal infiltrate or pulmonary edema. ?? Normal cardiomediastinal contour. ?? No significant pleural effusion or pneumothorax. ?? Thoracolumbar scoliosis, convex left in the thoracic region ?? IMPRESSION: No active chest disease. ? JOB #: [id number] Electronically Signed By: ?? Signed By: Yonas ROBBINS, Elias ECG Sinus tachycardia at 108 without acute changes Diagnostic Study Interpretation: Chest x-ray negative for any acute process Lab Results CBC and Differential?? LATEST RESULTS?? WBC?? 02/28/23 13:58?? 9.4?? RBC?? 02/28/23 13:58?? 5.22?? Hgb?? 02/28/23 13:58?? 14.0?? Hct?? 02/28/23 13:58?? 42.7?? MCV?? 02/28/23 13:58?? 81.8?? MCH?? 02/28/23 13:58?? 26.8 ??Low?? MCHC?? 02/28/23 13:58?? 32.8?? RDW-CV?? 02/28/23 13:58?? 12.5?? Platelets?? 02/28/23 13:58?? 386?? MPV?? 02/28/23 13:58?? 9.1?? Neutro Auto?? 02/28/23 13:58?? 74.9?? Lymph Auto?? 02/28/23 13:58?? 18.0 ??Low?? Titus Auto?? 02/28/23 13:58?? 5.9?? Eos, Auto?? 02/28/23 13:58?? 0.50?? Basophil Auto?? 02/28/23 13:58?? 0.5?? Imm Gran Auto?? 02/28/23 13:58?? 0.2?? Neutro Absolute?? 02/28/23 13:58?? 7.0 ??High?? Lymph Absolute?? 02/28/23 13:58?? 1.7?? Titus Absolute?? 02/28/23 13:58?? 0.6?? Eos Absolute?? 02/28/23 13:58?? 0.0?? Baso Absolute?? 02/28/23 13:58?? 0.0?? Imm Gran Absolute?? 02/28/23 13:58?? 0.02? Routine Chemistry?? LATEST RESULTS?? Sodium Level?? 02/28/23 13:58?? 138?? Potassium Level?? 02/28/23 13:58?? 3.7?? Chloride Level?? 02/28/23 13:58?? 106?? CO2?? 02/28/23 13:58?? 22?? Alk Phos?? 02/28/23 13:58?? 88?? AST?? 02/28/23 13:58?? 20?? ALT?? 02/28/23 13:58?? 23?? BUN?? 02/28/23 13:58?? 16?? Glucose Level?? 02/28/23 13:58?? 85?? Creatinine Level?? 02/28/23 13:58?? 0.65?? BUN/Creat Ratio?? 02/28/23 13:58?? 24.6 ??High?? Calcium Level?? 02/28/23 13:58?? 9.5?? Protein Total?? 02/28/23 13:58?? 8.4 ??High?? Albumin Level?? 02/28/23 13:58?? 4.5?? Globulin?? 02/28/23 13:58?? 3.9?? A/G Ratio?? 02/28/23 13:58?? 1.2?? Bilirubin Total?? 02/28/23 13:58?? 0.4?? Anion Gap?? 02/28/23 13:58?? 10.0?? Osmolality?? 02/28/23 13:58?? 276?? eGFR CKD-EPI?? 02/28/23 13:58?? 131? Cardiac Isoenzymes?? LATEST RESULTS?? Troponin-I?? 02/28/23 13:58?? <0.01? Electronically Signed on 02/28/23 06:08 PM Sunil Brasher MD Emergency department Discharge instructions * Sunil Brasher MD: PERFORM Event Display: ED Discharge Information Authored Date: [id number] ELLI ROSADO :2005 Age:17 years Sex:Female Visit Date:02/28/2023 Primary Care Physician: PAULA Escalera, STEPHANI MCDONALD Discharge Instructions We would like to thank you for allowing us to assist you with your healthcare needs. The following includes patient education materials and information regarding your injury/illness. Diagnosis from Today's Visit Chest wall pain Discharge Vitals Temperature??(Temporal Artery) 99.1 ??F (37.3 ??C) Heart Rate??(Peripheral) 96 Respiratory Rate?? 16 Blood Pressure?? 115/93?? Height?? 57.09 in (145.000 cm) Weight??(Estimated) 163.04 lb (73.94 kg) Allergies Hayfever Strawberries What to Do Next Instructions from Your Care Team Toradol as prescribed for pain. ??Rest. ??Follow-up with regular doctor or return for worsening symptoms You were treated today on an [...] Emergency Department. Medications What How Much When Instructions Next Dose New ketorolac (ketorolac 10 mg oral tablet) 1 tab Oral (given by mouth) Every 6 hours as needed for as needed for pain not to exceed 40 mg/ day and 5 days duration for all dose forms ?? Pickup at [facility] Unchanged levothyroxine (levothyroxine 75 mcg (0.075 mg) [...] ?? Pharmacy Information [facility]: [address] [facility] [place] [id number] [phone] Education Materials Chest Wall Pain Chest wall [...] safe for you. General instructions ? Take rioi-ueq-drrraia and prescription medicines only as told by [...] with your health care provider. Document Revised: 12/03/2021 Document Reviewed: 12/03/2021 [employer] Patient Education ?? 2021 [employer] Tests Performed Radiology XR Chest 1 View 02/28/2023 14:07 EDT Medications and Immunizations Administered Given Toradol, 15 mg, IV Push Lab Test Name Test Result Date/Time WBC 9.4 K/mcL 02/28/2023 13:58 EDT RBC 5.22 Million/mcL 02/28/2023 13:58 EDT Hgb 14.0 g/dL 02/28/2023 13:58 EDT Hct 42.7 % 02/28/2023 13:58 EDT MCV 81.8 fL 02/28/2023 13:58 EDT MCH 26.8 pg 02/28/2023 13:58 EDT MCHC 32.8 g/dL 02/28/2023 13:58 EDT RDW-CV 12.5 % 02/28/2023 13:58 EDT Platelets 386 K/mcL 02/28/2023 13:58 EDT MPV 9.1 fL 02/28/2023 13:58 EDT Neutro Auto 74.9 % 02/28/2023 13:58 EDT Lymph Auto 18.0 % 02/28/2023 13:58 EDT Titus Auto 5.9 % 02/28/2023 13:58 EDT Eos, Auto 0.50 % 02/28/2023 13:58 EDT Basophil Auto 0.5 % 02/28/2023 13:58 EDT Imm Gran Auto 0.2 % 02/28/2023 13:58 EDT Neutro Absolute 7.0 K/mcL 02/28/2023 13:58 EDT Lymph Absolute 1.7 K/mcL 02/28/2023 13:58 EDT Titus Absolute 0.6 K/mcL 02/28/2023 13:58 EDT Eos Absolute 0.0 K/mcL 02/28/2023 13:58 EDT Baso Absolute 0.0 K/mcL 02/28/2023 13:58 EDT Imm Gran Absolute 0.02 02/28/2023 13:58 EDT Sodium Level 138 mmol/L 02/28/2023 13:58 EDT Potassium Level 3.7 mmol/L 02/28/2023 13:58 EDT Chloride Level 106 mmol/L 02/28/2023 13:58 EDT CO2 22 mmol/L 02/28/2023 13:58 EDT Alk Phos 88 IntlUnit/L 02/28/2023 13:58 EDT AST 20 IntlUnit/L 02/28/2023 13:58 EDT ALT 23 IntlUnit/L 02/28/2023 13:58 EDT BUN 16 mg/dL 02/28/2023 13:58 EDT Glucose Level 85 mg/dL 02/28/2023 13:58 EDT Creatinine Level 0.65 mg/dL 02/28/2023 13:58 EDT BUN/Creat Ratio 24.6 02/28/2023 13:58 EDT Calcium Level 9.5 mg/dL 02/28/2023 13:58 EDT Protein Total 8.4 g/dL 02/28/2023 13:58 EDT Albumin Level 4.5 g/dL 02/28/2023 13:58 EDT Globulin 3.9 02/28/2023 13:58 EDT A/G Ratio 1.2 02/28/2023 13:58 EDT Bilirubin Total 0.4 mg/dL 02/28/2023 13:58 EDT Anion Gap 10.0 02/28/2023 13:58 EDT Osmolality 276 mOsm/kg 02/28/2023 13:58 EDT eGFR CKD-EPI 131 mL/min/1.73 m2 02/28/2023 13:58 EDT Troponin-I <0.01 ng/mL 02/28/2023 13:58 EDT Patient/Small Stock Facer Signature Patient Name:ELLI ROSADO I have received this information and my questions have been answered. Patient/Small Stock Facer Name: Patient/Small Stock Facer Signature: Relationship to Patient: Witness Name/Signature: Date: Electronically Signed on: 02/28/2023 14:36 EDTSigned by:AFB XR Chest Single view * Elias Branham MD: VERIFY, VERIFY Event Display: Report EXAM DESCRIPTION: XR Chest 1 View 02/28/2023 INDICATION: PAIN COMPARISON: 09/15/2015 FINDINGS: Clear lungs with no focal infiltrate or pulmonary edema. Normal cardiomediastinal contour. No significant pleural effusion or pneumothorax. Thoracolumbar scoliosis, convex left in the thoracic region IMPRESSION: No active chest disease. JOB #: [id number] Final Signed by: Elias Branham MD Signed (Electronic Signature): 02/28/2023 2:05 pm Patient Care team information Care Team Personnel Name: STEPHANI MITCHELL M.D. Position: No Access Member Role: Primary Care Physician Address: Address: [address] [place] [address], [place] [address] [place] Name: Virgie Newman Position: Nurse Member Role: Registered Nurse Name: Sameera ROBBINS, Sunil Henley Position: Physician Member Role: ED Physician Address: Address: [address] [place] [phone] [place] Name: Roxann Lr Position: Nurse Member Role: ED Nurse Care Team Related Persons Name: ANGELA LEMUS
--- OUTSIDE RECORDS SUMMARY | 2024-11-01 22:20 | XMS_ITS | Referral Summary ---
Author Organization [facility] Address [address] [place] [address] Care Team Providers Care Director Consumer Name Role Phone Unavailable Primary Care Provider Unavailabl e Social History Tobacco Use Types Packs/Day Years Used Date Smoking Tobacco: Never Assessed Comments Unknown Sex and Gender Information Value Date Recorded Sex Assigned at Not on file Legal Sex Female 11:30 EDT Gender Identity Not on file Sexual Orientation Not on file Plan of Treatment Not on file
--- OUTSIDE RECORDS SUMMARY | 2024-11-01 22:21 | XMS_ITS | Encounter Summary ---
[place] [address] Care Team Providers Care Electrical Engineering Designer Name Role Phone Parminder Mejia MD Primary Care Provider [phone] Reason for Referral * Consultation (Routine) - Closed Specialty Diagnoses / Procedures Referred By Magdi nixon Referred To Contact Neurology Diagnoses Dizzy spells Parminder Mejia MD [address] [place] [address] [facility] [address] [place] [phone] Referral ID Status Reason Start Date Expiration Date V isits Requested Visits Authorized [id number] Closed Consult, Test & Treat PCP Updated and/or Approved 03/15/2023 03/14/2024 6 6 Encounter Details Date Type Department Care Team ([facility] Contact Info) Description 03/15/2023 Transcribe Orders eDH Incoming Referrals [phone] Parminder Mejia MD [address] [place], [place] [id number] Dizzy spells Social History Tobacco Use Types Packs/Day Years Used Date Smoking Tobacco: Passive Smo ke Exposure - Never Smoker Smokeless Tobacco: Never Comments:mom and stepdad smo kes outside Sex and Gender Information Value Date Recorded Sex Assigned at Not on file Gender Identity Not on file Sexual Orientation Not on file documented as of this encounter Plan of Treatment Scheduled Referrals Name Type Priority Associated Diagnoses Orde r Schedule Referral to Neurology Outpatient Referral Routine Dizzy spells Ordered: 03/15/2023 documented as of this encounter Visit Diagnoses Diagnosis Dizzy spells Dizziness and giddiness documented in this encounter Care Teams Electrical Engineering Designer Relationship Specialty Start Date End Date Parminder Mejia MD [address] [place] [address] PCP - General Pediatrics 09/01/15 09/18/23 documented as of this encounter
--- OUTSIDE RECORDS SUMMARY | 2024-11-01 22:21 | XMS_ITS | Encounter Summary ---
[place] [address] Care Team Providers Care Banquet Set Up Person Name Role Phone Parminder Mitchell MD Primary Care Provider [phone] Reason for Visit * Reason Comments Short Stature Encounter Details Date Type Department Care Team (Latest Contact Info) Description 09/01/2015 10:00 AM EST Office Visit [place] [address] Lou Hogue MD Hypothyroidism, acquired, autoimmune; Short stature; Overweight(278.02) Social History Tobacco Use Types Packs/Day Years Used Date Smoking Tobacco: Passive Smo ke Exposure - Never Smoker Comments:mom smokes outside Sex and Gender Information Value Date Recorded Sex Assigned at Not on file Gender Identity Not on file Sexual Orientation Not on file documented as of this encounter Last Filed Vital Signs Vital Sign Reading Time Taken Comments Blood Pressure 122/82 09/01/2015 9:51 AM EST Pulse 109 09/01/2015 9:51 AM EST Temperature - - Respiratory Rate - - Oxygen Saturation - - Inhaled Oxygen Concentration - - Weight 36.9 kg (81 lb 5.6 oz) 09/01/2015 9:51 AM EST Height 126.9 cm (4' 1.96) 09/01/2015 9:51 AM ES T Body Mass Index 22.91 09/01/2015 9:51 AM EST Body Mass Index Percentile 92.98% 09/01/2015 9:5 1 AM EST Growth Chart: CDC (Girls, 2- 20 Years) documented in this encounter Progress Notes * Lou Hogue MD - 09/01/2015 9:48 AM EST Hypothyroidism Follow-up Office Visit Name: Violette Barrera Age: 9 y.o. 10 m.o. : 2005 Gender: female PCP/Referring MD: PARMINDER MITCHELL MD [address] [place] [address] [place] [address] , Summary: Violette is a 9 y.o. 10 m.o. female with short stature and autoimmune hypothyroidism, whoI first evaluated at the request of her PCP,PARMINDER IMTCHELL MD in April 2015. This is her first follow-up visit. Interim history was obtained from Violette's mother, who accompanied her on the visit today. Chart is reviewed as part of the encounter, including pertinent labs, imaging and growth chart. Violette was noted by her PCP to have a deceleration in growth velocity between ages 8 to 9. She had previously been growing below but parallel to the curve since age 5. Her mother is 61.5 inches inheight and has hypothyroidism and her father is 66.5 inches in height Laboratory evaluation included an IgF-1 of 139, IGFBP3 3.8, normal comprehensive metabolic panel except for a mildly elevated alkaline phosphatase of 327. She had an IgA level of 141 and an undetectable tissue transglutaminase IgA antibody. She had a normal CBC and differential except for a slightly elevated platelet count of 403,000. Her sed rate was normal at 14. Her free T4 was low at 0.80 with the lower end of the normal range being 0.82. Her TSH was elevated at 16.88. In consultation with Dr. Mccann in this office, she was started on levothyroxine 50 mcg a day on April 06, 2015. At her initial visit with me, she was asymptomatic. She had a history of constipation but not within the year prior to diagnosis. She had an increased energy level and no hair or skin changes. She had heat intolerance. On initial physical exam, she was at the 1% for height and the 60% for weight. Her thyroid gland was not enlarged but slightly firm in texture. She was Edward l for breast development and she would not allow me to exam for pubic hair but did have a history of adult axillary odor and a small amount of pubic hair according to mother. She had axillary hair. It was too soon to recheck TFT's and the plan was to get them approximately 6 weeks after starting therapy. 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 Patient Active Problem List Diagnosis Code ??? Acquired autoimmune hypothyroidism E03.8 ??? Attention deficit hyperactivity disorder (ADHD), combined type F90.2 ??? 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 Oppositional defiant disorder F91.3 ??? Short stature R62.52 Current Outpatient Prescriptions on File Prior to Visit Medication Sig Dispense Refill ??? lisdexamfetamine (VYVANSE) 30 mg Capsule Take 30 mg by mouth every morning. ??? DEXTROAMPHETAMINE/AMPHETAMINE (ADDERALL ORAL) Take 5 mg by mouth daily. ??? LORATADINE ORAL Take by mouth daily. ??? diaZEPam (DIASTAT ACUDIAL) 5-7.5-10 mg Kit 5 milligrams, [place], PRN, seizure longer than 5 minutes No current facility-administered medications on file prior to visit. No Known Allergies Date of last visit:Apr 2015 History obtained from:Violette's mother HPI: Violette Barrera is a 9 y.o. 10 m.o. here today for followup of acquired autoimmune hypothyroidism which was diagnosed in 2014. Current symptoms include none. Patient denies change in energy level, constipation, hair loss and skin changes. Mom believes she has lost a few pounds. Illness since last visit :URI Taking levothyroxine consistently: yes Brand and dose of LT4: levothyroxine 62.5 ug daily(Dr. Mitchell obtained TFTs and according to parent, dose was increased to 62.5 ug in May) Most Recent Labs: TFT's obtained on 08/26/2015 showed a TSH of 3.12 and a free T4 of 1.13. Social History: Grade in School: 5th Activities:chorus ROS: ROS x 12 as evidenced by a medical history form filled out by the parent was negative except for recent rash in inner thighs. PHYSICAL EXAM: Filed Vitals: 09/01/15 0951 BP: 122/82 Pulse: 109 Wt Readings from Last 3 Encounters: 09/01/15 36.9 kg (81 lb 5.6 oz) (50.86 %*) 04/28/15 37.286 kg (82 lb 3.2 oz) (60.91 %*) * Growth percentiles are based on CDC 2-20 Years data. Ht Readings from Last 3 Encounters: 09/01/15 126.9 cm (4' 1.96) (1.03 %*) 04/28/15 124.9 cm (4' 1.17) (0.87 %*) * Growth percentiles are based on CDC 2-20 Years data. Body mass index is 22.91 kg/(m^2). 93%ile based on CDC 2-20 Years BMI-for-age data using vitals from 09/01/2015. 51%ile based on CDC 2-20 Years [id number] data using vitals from 09/01/2015. 1%ile based on CDC 2-20 Years [id number] data using vitals from 09/01/2015. Growth velocity: 6 cm/yr HEENT: NE Thyroid:normal size, without masses Lungs:good air exchange , mild expiratory wheezes Cardiac:RR, no murmur Abdomen:soft, obese, without obvious masses Edward stage: Breasts Edward l Neuro:patellar reflexes 2+ Skin: erythematous papular rash on inner thighs. ASSESSMENT AND PLAN:9 y.o. 10 m.o. w/ acquired autoimmune hypothyroidism who is clinically adn chemically euthyroid.. Excellent interval growth with normal development and small weight loss. Growth chart and recent progress reviewed in detail with family. Additional issues discussed : wheezing-call PCP. Rash-try hydrocortisone topically-if no improvement see PCP. Short stature- most likely familial, current growth velocity normal Additional testing recommended today:none Counseled on multiple thyroid disease topics as outlined in below list: ___ 1. Use of 7 day pill container to promote compliance with daily LT4 therapy, ideas promote no missed dosing _X__ 2. Ability to double dose to make up for missed LT4 dose which is better than skipping dose entirely _X__ 3. Review of signs/ symptoms of hypothyroidism _X__ 4. Review of recent growth chart ___ 5. Recommendation to avoid large amounts of soy, multivitamin, iron and calcium supplements within 2 hrs before or after LT4 dose ___ 6. Risk for other autoimmune pathology in patients with Willi's thyroiditis ___ 7. Interpretation of thyroid function testings and recommendations for dose adjustment of LT4. ___ 8. Other: Followup visit recommended : 6 mo documented in this encounter Plan of Treatment Not on file documented as of this encounter Visit Diagnoses Diagnosis Hypothyroidism, acquired, autoimmune Other specified acquired hypothyroidism Short stature Overweight(278.02) Overweight documented in this encounter Care Teams Banquet Set Up Person Relationship Specialty Start Date End Date Parminder Mitchell MD [address] [place] [address] PCP - General Pediatrics 09/01/15 09/18/23 documented as of this encounter
--- OUTSIDE RECORDS SUMMARY | 2024-11-01 22:21 | XMS_ITS | Encounter Summary ---
Author Organization [facility] [place] [address] Care Team Providers Care Guard Captain Name Role Phone Parminder Mejia MD Primary Care Provider [phone] Encounter Details Date Type Department Care Team (Latest Contact Info) Description 03/23/2023 Travel Social History Tobacco Use Types Packs/Day [...] on filedocumented in this encounter Care Teams Guard Captain Relationship Specialty Start Date End Date Parminder Mejia MD [address] [place], [place] [id number] PCP - General Pediatrics 09/01/15 09/18/23 documented as of this encounter
--- OUTSIDE RECORDS SUMMARY | 2024-11-01 22:21 | XMS_ITS | Encounter Summary ---
[place] [address] Care Team Providers Care Car Sweeper Name Role Phone Parminder Mejia MD Primary Care Provider [phone] Encounter Details Date Type Department Care Team (Late st Contact Info) Description 03/23/2023 10:00 AM EDT [place] [address] Kiya Lu MD Adverse food reaction, subsequent encounter Social History Tobacco Use Types Packs/Day Years [...] Sign Reading Time Taken Comments Blood Pressure 120/88 03/23/2023 10:04 AM EDT Pulse 88 03/23/2023 10:04 AM EDT Temperature - - Respiratory Rate - - Oxygen Saturation 98% 03/23/2023 10: 04 AM EDT Inhaled Oxygen Concentration - - Weight 74.3 kg (163 lb 12.8 oz) 023 10:04 AM EDT Height - - Body Mass Index - - documented in this encounter Progress Notes * Kiya Lu MD - 03/23/2023 10:00 AM EDT Images from the original note were not included. [facility] Section of Allergy and Clinical Immunology Date of Service: 03/23/23 Primary Care Provider: Parminder Mejia MD Patient Age: 17 y.o. Patient : 2005 Historian: Patient Subjective: Patient ID: Violette Barrera is a 17 y.o. female who presents for allergy skin testing andcontinued evaluation of an adverse food reaction. She has not had any accidental ingestions of strawberries since her last visit. Past Medical History: Diagnosis Date ADHD Asthma 03/03/2016 Hypothyroidism Obesity, pediatric, BMI 95th to 98th percentile for age 502/13/2013 Oppositional defiant disorder 09/03/2012 Short stature 06/07/2015 History reviewed. No pertinent surgical history. Outpatient Medications Marked as Taking for the 03/23/23 encounter (Office Visit) with Kiya Lu MD Medication Sig Dispense Refill lisdexamfetamine (VYVANSE) 20 mg Capsule Take by mouth. Indications: take 20 mg every afternoon levothyroxine (SYNTHROID) 75 mcg Tablet Take 1 tablet by mouth daily. 15 tablet 0 ALBUTEROL INHL Inhale into the lungs. FLUTICASONE PROPIONATE (FLOVENT HFA INHL) Inhale into the lungs. lisdexamfetamine (Vyvanse) 30 mg capsule Take 30 mg by mouth every morning. Allergies Allergen Reactions Lindsay Unclassified Drug Hayfever pt reported Family History Problem Relation Age of Onset Thyroid Disease Mother 26 hypothyroidism Asthma Mother Seizure Disorder Father Depression Father Allergies Brother Hearing Loss Maternal Grandmother Hyperlipidemia Maternal Grandmother Heart Disease Maternal Grandmother Rheumatoid Arthritis Paternal Grandmother Depression Paternal Grandmother Crohn Disease Paternal Grandfather Social History Tobacco Use Smoking status: Never Passive exposure: Yes Smokeless tobacco: Never Tobacco comments: mom and stepdad smokes outside Vaping Use Vaping Use: Never used Review of Systems: 10 point review of systems reviewed and negative except as above. Environmental History: not applicable Objective: BP 120/88 Pulse 88 Wt 74.3 kg (163 lb 12.8 oz) SpO2 98% View : No data to display. Wt Readings from Last 3 Encounters: 03/23/23 74.3 kg (163 lb 12.8 oz) (91 %)* 01/26/23 74.3 kg (163 lb 14.4 oz) (91 %)* 08/07/18 51.1 kg (112 lb 9.6 oz) (59 %)* * Growth percentiles are based on [facility] (Girls, 2-20 Years) data. Physical exam: Constitutional: Awake, alert, no acute distress Head: Normocephalic, atraumatic Eyes: Conjunctiva without injection or icterus, no discharge appreciated, no eyelid edema ENT: No angioedema of tongue or lips, normal pinnae, no anterior nasal drainage observed, no audible stridor Neck: No visible goiter or gross enlargement of neck. Respiratory: No increased work of breathing observed, no coughing observed, speaking in full sentences, normal rate of breathing, no accessory muscle use CVS: Normal color and perfusion, no apparent cyanosis Extremities: No apparent joint deformity observed, normal appearing muscle bulk, normal and symmetric range of motion of visible extremities Skin: No visible rash or lesions, normal color, no mottling Neuro: EOMI, no dysarthria Psych: Normal grooming, appropriate mood and affect, normal volume/quantity, tone of speech, normalthought process and content Labs: 01/26/2023: Component Ref Range & Units 1 mo ago Lindsay IgE kU/L <0.35 Procedures: Skin prick testing (03/23/2023): Histamine 9 x 36 mm Saline 0 x 0 mm Fresh strawberry 0 x 0 mm Assessment and Plan: Violette Barrera is a 17 y.o. female with a PMH significant for hypothyroidism, ADHD, asthma, and obesity who presented to the Allergy/Immunology Division for allergy skin testing and continued evaluation of an adverse reaction to strawberry. Her recent sIgE level to strawberry was negative. We skin tested her to fresh strawberry in clinic today and this skin test was negative. Neither test showed any evidence of an allergy to strawberry thus ruling out the risk of a life threatening reaction in the future. Her symptoms may have been due to naturally occurring histamines in strawberry. OK to ingest strawberry as tolerated. All questions were answered, and patient expressed understanding of the plan. Thank you for the opportunity to participate in the care of your patient. Ongoing follow-up with the patient's primary care physician is recommended and encouraged. If I can provide any further assistance, please do not hesitate to contact me. Next visit: Return for PRN (as needed). Kiya Lu MD [place] [address] [email or web address] * Xiao Lake, RN - 03/23/2023 10:00 AM EDT Patient in clinic for skin testing. Prior to skin test assessment lungs clear to ausculation, HR WNL, no rash, hives noted. Patient denies use of antihistamine in the last week. Patient states they are feeling well breathing well documented in this encounter Plan of Treatment Not on file documented as of this encounter Procedures Procedure Name Priority Date/Time Associated Diagnosis Comments ALLERGY SCAN 03/23/2023 12:00 AM EDT documented in this encounter Results * SCAN DOC: ALLERGY (03/23/2023 12:00 AM EDT) Narrative 03/23/2023 12:00 AM EDT Ordered by an unspecified provider. Scanning Provider MEDIA MGR SCAN EXT O RDR/RSLT documented in this encounter Visit Diagnoses Diagnosis Adverse food reaction, subsequent encounter documented in this encounter Care Teams Car Sweeper Relationship Specialty Start Date End Date Parminder Mejia MD [address] [place] [address] PCP - General Pediatrics 09/01/15 09/18/23 documented as of this encounter
--- OUTSIDE RECORDS SUMMARY | 2024-11-01 22:21 | XMS_ITS | Encounter Summary ---
[place] [address] Care Team Providers Care Canvas Shop Laborer Name Role Phone Parminder Mejia MD Primary Care Provider Reason for Referral * Diagnostic Test (Routine) - Closed Specialty Diagnoses / Procedures Referred By Magdi nixon Referred To Contact Radiology Diagnoses Dizzy spells Procedures MRI Brain wo Contrast (Epilepsy Protocol) MRI Brain wo Contrast Demetrio Vuong MD [facility] [place] [place] [address] [place] [address] Referral ID Status Reason Start Date Expiration Date V isits Requested Visits Authorized [id number] Closed Specialty Service Requested 08/15/2023 02/12/2025 1 1 Reason for Visit * Reason Comments Dizziness * Consultation (Routine) - Closed Specialty Diagnoses / Procedures Referred By Magdi nixon Referred To Contact Neurology Diagnoses Dizzy spells Parminder Mejia MD [address] [place] [address] [place] [address] [facility] Neurology [address] [place] [address] Referral ID Status Reason Start Date Expiration Date V isits Requested Visits Authorized [id number] Closed Consult, Test & Treat PCP Updated and/or Approved 03/15/2023 03/14/2024 6 6 Encounter Details Date Type Department Care Team (Late st Contact Info) Description 08/15/2023 8:00 AM EST [place] [address] Demetrio Vuong MD [facility] [place] [address] Dizzy spells (Primary Dx) Social History Tobacco Use Types [...] Sign Reading Time Taken Comments Blood Pressure 122/71 08/15/2023 7:50 AM EST Pulse 79 08/15/2023 7:50 AM EST Temperature - - Respiratory Rate - - Oxygen Saturation 96% 08/15/2023 7:50 AM EST Inhaled Oxygen Concentration - - Weight 74.8 kg (165 lb) 08/15/2023 7:50 AM EST Height 144.8 cm (4' 9) 08/15/2023 7:50 AM EST Body Mass Index 35.71 08/15/2023 7:50 AM EST Body Mass Index Percentile 97.42% 08/15/2023 7:5 0 AM EST Growth Chart: CDC (Girls, 2- 20 Years) documented in this encounter Progress Notes * Demetrio Vuong MD - 08/15/2023 8:00 AM EST [facility] [place] Neurology Clinic Note Referring provider: Parminder Mejia MD [address] [place] [address] Primary provider (pending): [facility] Rohan Luevano I saw Violette Barrera at the request of Parminder Mejia MD for the evaluation and treatment of near syncopal episodes. Presenting history: Violette Barrera is a 17 y.o., female presenting for evaluation of pre- syncopal episodes. Describes onset age 14 or 15, [...] self in motion, no nausea or vomiting. [place] like going to fall but hasn't actually [...] about 10 hours daily, works at a [employer]. ROS notable for nocturia (multiple times nightly, [...] factors for epilepsy: [] Head trauma [] DECK MATE infection [x] complications - prematurity/apnea [x] (Complex) [...] Nocturia Allergic/Immunologic: Negative. Allergies: Allergies Allergen Reactions Muir Unclassified Drug Hayfever pt reported Medications: Current Outpatient Medications: metoproloL tartrate (Lopressor) 25 mg tablet, Take 25 mg by mouth 2 times daily., Disp: , Rfl: levothyroxine (SYNTHROID) 75 mcg [...] by mouth as needed., Disp: , Rfl: lisdexamfetamine (VYVANSE) 20 mg Capsule, Take by mouth. Indications: take 20 mg every afternoon, Disp: , Rfl: History & active problems [...] for the past 24 hrs: Pulse BP SpO2 08/15/23 0750 79 122/71 96 % General Exam: Well appearing young woman, accompanied by mother. HEENT: Nonicteric sclerae, PERRLA, EOMI. Oropharynx clear. Moist mucous membranes. Optic disk margins sharp OU; no papilledema HEART: Regular rate. LUNGS: No coughing or wheezing. Non-labored breathing. Equal air entry bilaterally. EXTREMITIES: Warm and dry in all limbs. SKIN: Marked atopic dermatitis in bilateral hands extending past her wrists. Slightl ypainful and red to touch Mental status: Alert, oriented to person, day [...] 5 5 C7-T1 Digit II-V flexion / hazardous materials tanker driver 5 5 L2-3 Hip flexion 5 5 L3-4 Knee extension 5 5 L4-5 Ankle dorsiflexion/inversion 5 5 L5-S2 Ankle plantarflexion 5 5 Sensory: Intact to light touch throughout Pronator drift absent DTR: LEFT RIGHT Comments Biceps C5-C6 2+ 2+ Brachioradialis C5-C6 2+ 2+ Triceps C6-C7 2+ 2+ Patellar L3-L4 2+ 2+ Plantar L5-S1 flexion flexion Achilles tendon S1-S2 2+ 2+ Coordination Lrhory-vxji-cttycb testing intact. KAMILLE, finger tapping smooth and symmetric Gait/station: Normal based stance. Equal stride length with symmetric armswing. Able to hop up from crouching to chair without symptoms easily. Diagnostic Studies: Had recent endocrine labs by primary, per report. Last CrCl CrCl cannot be calculated (No successful lab value found.). Last EKG & Holter NSR+ sinus tachy only Assessment In summary, this is an 17-year-old woman who is presenting for chronic periods of presyncope/lightheadedness. These are present generally only while standing and active. She has documented tachycardia without hypotension postural change in the emergency room while symptomatic. No clinical features that are concerning for seizure or transient ischemic attack. Would favor presyncope from vasovagal immaturity possibly other dysautonomia. We will discuss after cardiology allergy evaluation and could pursue more exotic causes of dysautonomia if the the cardiac evaluation is ne gative. - MRI brain w/o contrast for baseline Return to care 2-4 months This visit was a total of 90 minutes which was spent on pre-charting, reviewing results of diagnostic studies, as well as patient education and counseling as detailed above. Demetrio Vuong MD [facility], Department of Neurology [facility] documented in this encounter Plan of Treatment Not on file documented as of this encounter Results * MRI Brain wo Contrast (Epilepsy Protocol) (09/17/2023 2:20 PM EST) Anatomical Region Laterality Modality Head Magnetic Resonan ce Impressions 09/18/2023 10:37 AM EST Normal MRI brain. I have personally reviewed the image(s) and the resident's interpretation and agree with the findings, Mike Pichardo MD at 09/18/2023 10:37 AM Thank you for letting us participate in the care of this patient. ??If you are a health care provider and have any questions regarding this report, please contact the number below. ??For patients who have questions please contact the health auto care center manager that requested your imaging first. ? Narrative 09/18/2023 10:37 AM EST EXAMINATION: MRI BRAIN WO CONTRAST (EPILEPSY PROTOCOL) CLINICAL HISTORY: workup for spells, childhood complicated frebrile seizure TECHNIQUE: Multiplanar multisequence MRI of the brain was performed without intravenous contrast. COMPARISON: No prior brain imaging available for comparison. FINDINGS: No intracranial hemorrhage, mass, mass effect, midline shift, or acute infarction. No cerebellar tonsillar ectopia. No brainstem sag or other secondary signs of intracranial hypotension. No empty sella or other secondary signs of elevated intracranial pressure. No mesial temporal sclerosis. No areas of cortical dysplasia are identified. No marrow signal abnormality. Intracranial flow voids are normal Ventricles are normal in size and configuration. No signal abnormalities of the extracranial soft tissues The major vascular structures appear normal Diffusion tensor imaging shows no abnormalities. Procedure Note Mike Pichardo MD - 09/18/2023 EXAMINATION: MRI BRAIN WO CONTRAST (EPILEPSY PROTOCOL) CLINICAL HISTORY: workup for spells, childhood complicated frebrileseizure TECHNIQUE: Multiplanar multisequence MRI of the brain was performed withoutintravenous contrast. COMPARISON: No prior brain imaging available for comparison. FINDINGS: No intracranial hemorrhage, mass, mass effect, midline shift, or acute infarction. No cerebellar tonsillar ectopia. No brainstem sag or other secondary signsof intracranial hypotension. No empty sella or other secondary signs ofelevated intracranial pressure. No mesial temporal sclerosis. No areas of cortical dysplasia areidentified. No marrow signal abnormality. Intracranial flow voids are normal Ventricles are normal in size and configuration. No signal abnormalities of the extracranial soft tissues The major vascular structures appear normal Diffusion tensor imaging shows no abnormalities. IMPRESSION Normal MRI brain. I have personally reviewed the image(s) and the resident's interpretationand agree with the findings, Mike Pichardo MD at 09/18/2023 10:37 AM Thank you for letting us participate in the care of this patient. If youare a health care provider and have any questions regarding this report,please contact the number below. For patients who have questions please contactthe health auto care center manager that requested your imaging first. Demetrio Vuong MD IMG MRI ORDERABLES documented in this encounter Visit Diagnoses Diagnosis Dizzy spells- Primary Dizziness and giddiness Dizzy spells Dizziness and giddiness documented in this encounter Care Teams Canvas Shop Laborer Relationship Specialty Start Date End Date Parminder Mejia MD [address] [facility] [place] [address] PCP - General Pediatrics 09/01/15 09/18/23 documented as of this encounter
--- OUTSIDE RECORDS SUMMARY | 2024-11-01 22:21 | XMS_ITS | Encounter Summary ---
Author Organization [facility] Address [facility] [place] [address] Care Team Providers Care Seat Mender Name Role Phone Parminder Mejia MD Primary Care Provider Reason for Referral * Consultation (Routine) - Closed Specialty Diagnoses / Procedures Referred By Magdi nixon Referred To Contact Cardiology Diagnoses Sinus tachycardia 6 MONTH F/UP (around 07/2024) PER AVS-Parminder Pratt MD [address] [facility] [place] [address] Nay Sheikh MD [facility] [place] [address] Referral ID Status Reason Start Date Expiration Date V isits Requested Visits Authorized [id number] Closed Consult, Test & Treat PCP Updated and/or Approved 03/15/2023 03/14/2024 6 6 Encounter Details Date Type Department Care Team ([facility] st Contact Info) Description 03/15/2023 Transcribe Orders eDH Incoming Referrals [phone] Parminder Mejia MD [address] [facility], [place] [id number] Sinus tachycardia Social History Tobacco Use Types Packs/Day [...] Associated Diagnoses Orde r Schedule Referral to Cardiology Outpatient Referral Routine Sinus tachycardia Ordered: 03/15/2023 documented as of this encounter Visit Diagnoses Diagnosis Sinus tachycardia Other specified cardiac dysrhythmias documented in this encounter Care Teams Seat Mender Relationship Specialty Start Date End Date Parminder Mejia MD [address] [place] [address] PCP - General Pediatrics 09/01/15 09/18/23 documented as of this encounter
--- OUTSIDE RECORDS SUMMARY | 2024-11-01 22:21 | XMS_ITS | Encounter Summary ---
[place] [address] Care Team Providers Care Product Safety Manager Name Role Phone Parminder Mejia MD Primary Care Provider [phone] Reason for Visit * Reason Comments Hypothyroidism Encounter Details Date Type Department Care Team (Latest Contact Info) Description 01/31/2017 9:00 AM EDT Office Visit Pediatric [place] [address] Lou Hogeu MD Acquired hypothyroidism; BMI (body mass index), pediatric, greater than or equal to 95% for age; Short stature (child) Social History Tobacco Use Types Packs/Day Years Used Date Smoking Tobacco: Passive Smo ke Exposure - Never Smoker Comments:mom smokes outside Sex and Gender Information Value Date Recorded Sex Assigned at Not on file Gender Identity Not on file Sexual Orientation Not on file documented as of this encounter Last Filed Vital Signs Vital Sign Reading Time Taken Comments Blood Pressure 113/68 01/31/2017 8:56 AM EDT Pulse 92 01/31/2017 8:56 AM EDT Temperature - - Respiratory Rate - - Oxygen Saturation - - Inhaled Oxygen Concentration - - Weight 50.3 kg (110 lb 12.8 oz) 01/31/2017 8:56 AM EDT Height 138.4 cm (4' 6.49) 01/31/2017 8:56 AM ED T Body Mass Index 26.24 01/31/2017 8:56 AM EDT Body Mass Index Percentile 95.53% 01/31/2017 8:5 6 AM EDT Growth Chart: [facility] (Girls, 2- 20 Years) documented in this encounter Progress Notes * Lou Hogue MD - 01/31/2017 9:00 AM EDT Hypothyroidism Follow-up Office Visit Name: Violette Barrera Age: 11 y.o. 4 m.o. : 2005 Gender: female PCP/Referring MD: Parminder Mejia MD [address] [place] [address] [place] [address] , Summary: Violette is a 11 y.o. 4 m.o. female with short stature and autoimmune hypothyroidism, who I first evaluated at the request of her PCP,Parminder Mejia MD in April 2015. She was last seen inEndocrinology in September 2015.. Interim history was obtained from Violette's mother, [...] 0.82. Her TSH was elevated at 16.88. Thyroid peroxidase antibodies were greater than 1300. In consultation with Dr. Mccann in this office, she was started on levothyroxine 50 mcg a day onJuly 2014. At her initial visit with nj, she was asymptomatic. She had a history of constipationbut not within the year prior to diagnosis. She had an increased energy level and no hair or skin changes. She had heat intolerance. On initial physical exam, she was at the 1% for height and the 60%for weight. Her thyroid gland was not enlarged but slightly firm in texture. She was Edward l for breast development and she would not allow me to exam for pubic hair but she had a history of adult axillary odor and a small amount of pubic hair according to mother. She had axillary hair. 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 Patient Active Problem List Diagnosis Code ??? Acquired autoimmune hypothyroidism E03.8 ??? Attention deficit hyperactivity disorder (ADHD), combined type F90.2 ??? 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 Oppositional defiant disorder F91.3 ??? Short stature R62.52 ??? Asthma J45.909 Current Outpatient Prescriptions on File Prior to Visit Medication Sig Dispense Refill ??? levothyroxine (SYNTHROID) 75 mcg Tablet Take 75 mcg by mouth daily. ??? ALBUTEROL INHL Inhale into the lungs. ??? FLUTICASONE PROPIONATE (FLOVENT HFA INHL) Inhale into the lungs. ??? lisdexamfetamine (VYVANSE) 30 mg Capsule Take 30 mg by mouth every morning. ??? DEXTROAMPHETAMINE/AMPHETAMINE (ADDERALL ORAL) Take 5 mg by mouth daily. ??? LORATADINE ORAL Take by mouth as needed. No current facility-administered medications on file prior to visit. No Known Allergies Date of last visit: Mar 2016 History obtained from:Violette's grandmother HPI: Violette Barrera is a 11 y.o. 4 m.o. here today for followup of acquired autoimmune hypothyroidism which was diagnosed in 2014. Current symptoms include none. Patient denies change in energy level, heat / cold intolerance, hair loss and skin changes. Constipation was a problem in the past but not currently. Illness since last visit : no Taking levothyroxine consistently: yes by report Brand and dose of LT4: levothyroxine 75 ug daily Most Recent Labs: none Social History: Lives with: parents have and Violette and her mother are living with maternal grandmother Grade in School: 6th Activities:chorus, swimming ROS: ROS x 12 as evidenced by a medical history form filled out by the grandparent was negative. PHYSICAL EXAM: Vitals: 01/31/17 0856 BP: 113/68 Pulse: 92 Wt Readings from Last 3 Encounters: 01/31/17 50.3 kg (110 lb 12.8 oz) (77 %)* 03/02/16 39.5 kg (87 lb 1.3 oz) (53 %)* 09/01/15 36.9 kg (81 lb 5.6 oz) (51 %)* * Growth percentiles are based on CDC 2-20 Years data. Ht Readings from Last 3 Encounters: 01/31/17 138.4 cm (4' 6.49) (2 %)* 03/02/16 (!) 130 cm (4' 3.18) (1 %)* 09/01/15 (!) 126.9 cm (4' 1.96) (1 %)* * Growth percentiles are based on CDC 2-20 Years data. Body mass index is 26.24 kg/(m^2). 96 %ile based on CDC 2-20 Years BMI-for-age data using vitals from 01/31/2017. 77 %ile based on CDC 2-20 Years fyiaxg-pit-udm data using vitals from 01/31/2017. 2 %ile based on CDC 2-20 Years gjzbqsh-rtt-zei data using vitals from 01/31/2017. Growth velocity: 9 cm/yr HEENT: NE Thyroid:normal size, firm and without masses Lungs:good air exchange , clear Cardiac:RR, no murmur Abdomen:soft, obese, without obvious masses Edward stage: [place] uncooperative for breast or pubic hair exam Neuro:patellar reflexes 2+ Skin: no acne ASSESSMENT AND PLAN:11 y.o. 4 m.o. w/ acquired autoimmune hypothyroidism who is clinically euthyroid.. TFTs will be arranged through Dr. Mejia's office as in the pat. Excellent interval growth.Growth velocity is likely indicative of pubertal growth spurt although pubertal development could not be verified due to [place] being uncooperative for this part of exam. Weight gain is excessive and BMI is greater than the 95%. Additional issues discussed : Short stature- most likely familial, current growth [...] which is better than skipping dose entirely ___ 3. Review of signs/ symptoms of hypothyroidism [...] Visit Diagnoses Diagnosis Acquired hypothyroidism Unspecified hypothyroidism BMI (body mass index), pediatric, greater than or equal to 95% for age Obesity, unspecified Short stature (child) documented in this encounter Care Teams Product Safety Manager Relationship Specialty Start Date End Date Parminder Mejia MD [address] [place] [address] PCP - General Pediatrics 09/01/15 09/18/23 documented as of this encounter
--- OUTSIDE RECORDS SUMMARY | 2024-11-01 22:21 | XMS_ITS | Encounter Summary ---
[place] [address] Care Team Providers Care Non Destructive Tester Name Role Phone Parminder Mejia MD Primary Care Provider Reason for Visit * Reason Comments Follow-up Encounter Details Date Type Department Care Team (Latest Contact Info) Description 08/08/2017 9:00 AM EST Office Visit Pediatric [place] [address] Lou Hogue MD Autoimmune hypothyroidism; Short stature (child) Social History Tobacco Use Types Packs/Day Years Used Date Smoking Tobacco: Passive Smo ke Exposure - Never Smoker Smokeless Tobacco: Never Comments:mom smokes outside Sex and Gender Information Value Date Recorded Sex Assigned at Not on file Gender Identity Not on file Sexual Orientation Not on file documented as of this encounter Last Filed Vital Signs Vital Sign Reading Time Taken Comments Blood Pressure 145/73 08/08/2017 8:52 AM EST Pulse 114 08/08/2017 8:52 AM EST Temperature - - Respiratory Rate - - Oxygen Saturation - - Inhaled Oxygen Concentration - - Weight 49.9 kg (110 lb 0.2 oz) 08/08/2017 8:52 A M EST Height 141.5 cm (4' 7.71) 08/08/2017 8:52 AM ES T Body Mass Index 24.92 08/08/2017 8:52 AM EST Body Mass Index Percentile 93.07% 08/08/2017 8:5 2 AM EST Growth Chart: CDC (Girls, 2- 20 Years) documented in this encounter Progress Notes * Lou Hogue MD - 08/08/2017 9:00 AM EST Hypothyroidism Follow-up Office Visit Name: Elli Barrera Age: 11 y.o. 10 m.o. : 2005 Gender: female PCP/Referring MD: Parminder Mejia MD [address] [place] [address] [place] [address] , Summary: Elli is a 11 y.o. 10 m.o. female with short stature and autoimmune hypothyroidism, whoI first evaluated at the request of her PCP,Parminder Mejia MD in April 2015. She was last seen in Endocrinology in January 2017. Interim history was obtained from Elli's mother, who accompanied her on the visit today. Chart is reviewed as part of the encounter, including pertinent labs, imaging and growth chart. Elli was noted by her PCP to have [...] onJuly 2014. At her initial visit with me, she [...] axillary hair. 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 [...] No Known Allergies Date of last visit: January 2017 History obtained from:Elli's grandmother HPI: Elli Barrera is a 11 y.o. 10 m.o. here today for followup of acquired autoimmune hypothyroidism which was diagnosed in 2014. Current symptoms include none. Patient denies change in energy level, heat / cold intolerance, hair loss and skin changes. Constipation was a problem in thepast but not currently. Menarche occurred in June 2017 and menses are monthly. Illness since last visit : no Taking levothyroxine consistently: yes by report Brand and dose of LT4: levothyroxine 75 ug daily (BUT ELLI STATES THAT PILL IS WHITE-NOT PURPLE- WILL CONTACT PCP) Most Recent Labs: labs were done at [facility] four days ago. Social History: Lives with: parents have and Elli and her mother are living with maternal grandmother Grade in School: 7th Activities:chorus, swimming ROS: ROS x 12 as evidenced by a medical history form filled out by the grandparent was negative. PHYSICAL EXAM: Most Recent Vitals: 08/08/17 0852 BP: 145/73 Pulse: 114 PainSc: 0 - No pain Wt Readings from Last 3 Encounters: 08/08/17 49.9 kg (110 lb 0.2 oz) (69 %)* 01/31/17 50.3 kg (110 lb 12.8 oz) (77 %)* 03/02/16 39.5 kg (87 lb 1.3 oz) (53 %)* * Growth percentiles are based on CDC 2-20 Years data. Ht Readings from Last 3 Encounters: 08/08/17 141.5 cm (4' 7.71) (2 %)* 01/31/17 138.4 cm (4' 6.49) (2 %)* 03/02/16 (!) 130 cm (4' 3.18) (1 %)* * Growth percentiles are based on CDC 2-20 Years data. Body mass index is 24.92 kg/(m^2). 93 %ile based on CDC 2-20 Years BMI-for-age data using vitals from 08/08/2017. 69 %ile based on CDC 2-20 Years mlxlfi-peh-qai data using vitals from 08/08/2017. 2 %ile based on CDC 2-20 Years bywsstb-bso-tyn data using vitals from 08/08/2017. Growth velocity: 9 cm/yr HEENT: NE Thyroid:normal size, firm and without masses Lungs:good air exchange , clear Cardiac:RR, no murmur Abdomen:soft, obese, without obvious masses Edward stage: uncooperative for breast or pubic hair exam Neuro:patellar reflexes 2+ Skin: no acne ASSESSMENT AND PLAN:11 y.o. 10 m.o. w/ acquired autoimmune hypothyroidism who is clinically Euthyroid and has a normal growth velocity. Weight is stable and BMI has decreased slightly to the 93%. I am puzzled by Elli's insistence that her thyroid pill is white which means she is taking 50 rather than 75 ug daily. Will check with pharmacy to see what was picked up most recently. TFT's were obtained and dose of medication will be adjusted according to test results. Additional issues discussed : Short stature- most [...] Other: Followup visit recommended : 6 mo ADDENDUM: Mother confirms that Elli is taking 75 ug(purple) levothyroxine . documented in this encounter Plan of Treatment Not on file documented as of this encounter Visit Diagnoses Diagnosis Autoimmune hypothyroidism Short stature (child) documented in this encounter Care Teams Non Destructive Tester Relationship Specialty Start Date End Date Parminder Mejia [place] [address] [place] [address] PCP - General Pediatrics 09/01/15 09/18/23 documented as of this encounter
--- OUTSIDE RECORDS SUMMARY | 2024-11-01 22:21 | XMS_ITS | Encounter Summary ---
Author Organization [facility] [place] [address] Care Team Providers Care Wrapper Layer Name Role Phone Parminder Mejia MD Primary Care Provider [phone] [phone] Encounter Details Date Type Department Care Team (Late st Contact Info) Description 02/01/2017 Telephone Pediatric Endocrinology at [address] [address] Lou Hogue MD Social History Tobacco Use Types Packs/Day Years Used Date Smoking Tobacco: Passive Smo ke Exposure - Never Smoker Comments:mom smokes outside Sex and Gender Information Value Date Recorded Sex Assigned at Not on file Gender Identity Not on file Sexual Orientation Not on file documented as of this encounter Miscellaneous Notes * Telephone Encounter - Yazmin Callahan RN - 02/02/2017 4:09 PM EDT [facility] pediatrics aware of patient concerns and have been in contact with the mother. * Telephone Encounter - Lou Hogue MD - 02/01/2017 10:29 AM EDT Violette needs a free t4 and TSH. She normal gets them drawn through Dr. Mejia's office due tosever anxiety(he give candido a dose of lrazepam prior to blodd drawn). I gave grandmother the lab slips. Please call PCP office to arrange for these labs. documented in this encounter Plan of Treatment Not on file documented as of this encounter Visit Diagnoses Not on filedocumented in this encounter Care Teams Wrapper Layer Relationship Specialty Start Date End Date Parminder Mejia MD [address] [place] [address] PCP - General Pediatrics 09/01/15 09/18/23 documented as of this encounter
--- OUTSIDE RECORDS SUMMARY | 2024-11-01 22:21 | XMS_ITS | Encounter Summary ---
[place] [address] Care Team Providers Care University Controller Name Role Phone Parminder Mejia MD Primary Care Provider [phone]- [phone] Reason for Referral * Allergy Testing (Routine) - Closed Specialty Diagnoses / Procedures Referred By Contrebekah nixon Referred To Contact Allergy Diagnoses Allergy to other foods Parminder Mejia MD [address] [place] [address] [facility] [address] [place] [address] Referral ID Status Reason Start Date Expiration Date V isits Requested Visits Authorized [id number] Closed Consult, Test & Treat PCP Updated and/or Approved 01/11/2023 01/11/2024 6 6 Encounter Details Date Type Department Care Team (Latest Contact Info) Description 01/11/2023 Transcribe Orders eDH Incoming Referrals [phone] Parminder Mejia MD [address] [place], [place] [id number] Allergy to other foods Social History Tobacco Use Types Packs/Day Years [...] Associated Diagnoses Orde r Schedule Referral to Allergy Outpatient Referral Routine Allergy to other foods Ordered: 01/11/2023 documented as of this encounter Visit Diagnoses Diagnosis Allergy to other foods documented in this encounter Care Teams University Controller Relationship Specialty Start Date End Date Parminder Mejia MD [address] [place] [address] PCP - General Pediatrics 09/01/15 09/18/23 documented as of this encounter
--- OUTSIDE RECORDS SUMMARY | 2024-11-01 22:21 | XMS_ITS | Encounter Summary ---
Author Organization [facility] [place] [address] Care Team Providers Care Emu Farmer Name Role Phone Parminder Mejia MD Primary Care Provider [phone]- [phone] Encounter Details Date Type Department Care Team (Latest Contact Info) Description 01/26/2023 Travel Social History Tobacco Use Types Packs/Day [...] on filedocumented in this encounter Care Teams Emu Farmer Relationship Specialty Start Date End Date Parminder Mejia MD [address] [place], [place] [address] PCP - General Pediatrics 09/01/15 09/18/23 documented as of this encounter
--- OUTSIDE RECORDS SUMMARY | 2024-11-01 22:21 | XMS_ITS | Encounter Summary ---
Author Organization [facility] [place] [address] Care Team Providers Care Strickler Attendant Name Role Phone Rohan Luevano EUGENIO Primary Care Provider Reason for Referral * Diagnostic Test (Routine) - Closed Specialty Diagnoses / Procedures Referred By Contac t Referred To Contact Cardiology Diagnoses Dizzy spells Procedures Echocardiogram Transthoracic Nay Sheikh MD [facility] [place] [address] [facility] [place] [address] Referral ID Status Reason Start Date Expiration Date V isits Requested Visits Authorized [id number] Closed Specialty Service Requested 10/13/2023 10/12/2024 1 1 * Diagnostic Test (Routine) - Closed Specialty Diagnoses / Procedures Referred By Contac t Referred To Contact Cardiology Diagnoses Dizzy spells Procedures Ziopatch 48 Hrs-15 Days Nay Sheikh MD [facility] [place] [address] [facility] [place] [address] Referral ID Status Reason Start Date Expiration Date V isits Requested Visits Authorized [id number] Closed Specialty Service Requested 10/13/2023 10/12/2024 1 1 Reason for Visit * Consultation (Routine) - Closed Specialty Diagnoses / Procedures Referred By Contac t Referred To Contact Cardiology Diagnoses Sinus tachycardia 6 MONTH F/UP (around 07/2024) PER AVS-Parminder Pratt MD [address] [place] [address] [place] [place] [address] Nay Sheikh MD [facility] [place] [address] Referral ID Status Reason Start Date Expiration Date V isits Requested Visits Authorized [id number] Closed Consult, Test & Treat PCP Updated and/or Approved 03/15/2023 03/14/2024 6 6 Encounter Details Date Type Department Care Team (Late st Contact Info) Description 10/13/2023 2:00 PM EST Office Visit Cardiology at [address] [address] Lisa Sinclair MD [facility] [place] [address] Nay Sheikh MD [facility] [place] [address] Dizzy spells Social History Tobacco Use Types [...] Sign Reading Time Taken Comments Blood Pressure 114/73 10/13/2023 1:45 PM EST Pulse 87 10/13/2023 1:45 PM EST Temperature - - Respiratory Rate - - Oxygen Saturation 100% 10/13/2023 1:45 PM EST Inhaled Oxygen Concentration - - Weight 76.7 kg (169 lb) 10/13/2023 1:45 PM EST Height 146.1 cm (4' 9.5) 10/13/2023 1:45 PM EST Body Mass Index 35.94 10/13/2023 1:45 PM EST documented in this encounter Progress Notes * Nay Sheikh MD - 10/13/2023 2:00 PM EST Images from the original note were not included. [facility] [place] [address] Violette Barrera [id number] 10/13/2023 REFERRING PROVIDER: Parminder Mejia HISTORY OF PRESENT ILLNESS: Miss. Barrera is [...] does not syncopize. She has presented to [facility] ED for evaluation and it has been [...] medication - synthroid (stable dose with TFT's) So far she has also had a neurology visit, and completed an MRI. PHYSICAL EXAMINATION: Vital Signs: BP 114/73 (BP Location (NBP): Left arm, Patient Position: Sitting, BP Cuff Sizes: Adult (25-34 cm)) Pulse 87 Ht (!) 146.1 cm (4' 9.5) Wt 76.7 kg (169 lb) SpO2 100% BMI 35.94 kg/m?? General - No acute distress. Well-groomed/nourished. [...] occurred during sinus tachy. EKG: HR 84, IN 148, no delta wave ASSESSMENT + PLAN: Miss. Barrera is a 18 year old woman who presents to establish care in Cardiology for work up of dizziness, tachycardia, and chest pain. Symptoms are non-exertional and occur daily lasing seconds to minutes. Holter was non- diagnostic but did show elevated HR on average. Differential is broadfor her symptoms including SVT, POTS, sinus tachycardia, and non-cardiac causes. Will plan to further evaluate by: - Carlos for 14 days - TTE Thank you for allowing us to participate in the care of this patient. The patient was seen and discussed with attending physician. Nay Sheikh MD Cardiovascular Medicine Fellow I have seen the patient and reviewed the fellow's above history and I agree with the details as written. The assessment and plan were formulated in discussion with me and I agree with them as documented. documented in this encounter Plan of Treatment Not on file documented as of this encounter Procedures Procedure Name Priority Date/Time Associated Diagnosis Comments EKG 12-LEAD Routine 10/13/2023 2:24 PM EST documented in this encounter Results * ECHO COMPLETE (01/02/2024 9:50 AM EDT) Anatomical Region Laterality Modality Cardiac Other 01/02/2024 9:00 AM EDT Narrative 01/02/2024 10:07 AM EDT [address] [place] [address] ? Echocardiogram Report Name: VIOLETTE BARRERA ?Study Date: 01/02/2024 09:00 AMBP: 112/82 mmHg ? Patient Location: 4A : 2005 ? Height: 146 cm ? Account: [id number] Age: 18 yrs ? Weight: 77 kg Gender: Female ?BSA: 1.7 m2 Ordering Physician: LISA SINCLAIR Referring Physician: NAY SHEIKH Performed By: Deisi Blackman [facility] Reason For Study: Dizziness Interpreting Fellow: Deisi Gutierres. Exam Location: [facility]. Interpretation Summary - Normal biventricular structure and function, with an LVEF by biplane method of 59% and no wall motion abnormalities. Diastolic function is normal. - Normal bi-atrial size. - No hemodynamically significant valvular disease. - No prior echocardiogram for comparison. Procedure Complete-[id number]. Satisfactory quality. Left Ventricle Left ventricle is [...] Note Lisa Sinclair MD - 01/02/2024 1 [place] [address] Echocardiogram Report Name: VIOLETTE BARRERA Study Date: 409:00 AMBP: 112/82 mmHg Patient Location: : 2005 Height: 146 cm Account: [id number] Age: 18 yrs Weight: 77 kg Gender: Female BSA: 1.7 m2 Ordering Physician: LISA SINCLAIR Referring Physician: NAY SHEIKH Performed By: Deisi Blackman RDCS Reason For Study: Dizziness Interpreting Fellow: Deisi Gutierres. Exam Location: [facility]. Interpretation Summary - Normal biventricular structure and function, with an LVEF by biplanemethod of 59% and no wall motion abnormalities. Diastolic function is normal. - Normal bi-atrial size. - No hemodynamically significant valvular disease. - No prior echocardiogram for comparison. Procedure Complete-[id number]. Satisfactory quality. Left Ventricle Left ventricle is [...] Aneurysmal 15-16diffuse Lisa Sinclair MD ECHO ORDERABLES * Ziopatch 48 Hrs-15 Days (10/13/2023 2:57 PM EST) Total Enrollment Period [id number] IRHYTHM Anatomical Region Laterality Modality Other 10/13/2023 Narrative 11/08/2023 4:32 PM EST Conclusion: No significant arrhythmias associated with patient triggered events Monitoring period: 13 days 2 hours of interpretable tracings of a total enrollment 13 days 22 hours Sinoatrial node: ??Normal function with heart rate 46 bpm to 178 bpm, and mean of 96 bpm Atrioventricular node: ??Normal conduction Supraventricular arrhythmias: ??Rare without organization Ventricular arrhythmias: None Symptoms: There were 28 patient triggered events with 24 diary entries. ?? All corresponded to a sinus rhythm without ectopy. ??Heart rates range between 84 and 154 bpm. ??Symptoms were for chest pain, lightheadedness, dizziness, fluttering, shortness of breath Lisa Sinclair MD CARDIAC SERVICES ORD ERABLES * EKG 12 Lead (10/13/2023 2:24 PM EST) Ventricular rate 84 BPM MUSE SYSTEM Atrial Rate 84 BPM MUSE SYSTEM P-R Interval 148 ms MUSE SYSTEM QRS Duration 84 ms MUSE SYSTEM Q-T Interval 348 ms MUSE SYSTEM QTC Calculated (Bezet) 411 ms MUSE SYSTEM Calculated P Steele 8 degrees MUSE SYSTEM Calculated R Steele 52 degrees MUSE SYSTEM Calculated T Steele 36 degrees MUSE SYSTEM INTERPRETATION Normal sinus rhythm with sinus arrhythmia Normal ECG No previous ECGs available Confirmed by MD Sarah, Fabio Jimenez ([id number]) on 10/14/2023 8:32:56 AM MUSE SYSTEM 10/13/2023 2:24 PM EST 10/14/2023 8:32 AM EST Unknown ECG ORDERABLES MUSE SYSTEM documented in this encounter Visit Diagnoses Diagnosis Dizzy spells Dizziness and giddiness Dizzy spells Dizziness and giddiness Dizzy spells Dizziness and giddiness documented in this encounter Care Teams Strickler Attendant Relationship Specialty Start Date End Date Rohan Luevano DNP [address] [place] [address] PCP - General Family Medicine 09/19/23 documented as of this encounter
--- OUTSIDE RECORDS SUMMARY | 2024-11-01 22:21 | XMS_ITS | Encounter Summary ---
Author Organization [facility] [place] [address] Care Team Providers Care Spool Maker Name Role Phone Parminder Mejia MD Primary Care Provider [phone] Encounter Details Date Type Department Care Team (Late st Contact Info) Description 08/20/2017 Telephone Pediatric Endocrinology at [address] [address] Lou Hogue MD Social History [...] Telephone Encounter - Yazmin Callahan RN - 08/22/2017 1:46 PM EST Mother confirms that Violette has been taking 75 mcg which she states is purple. [facility] Dr. Mejia wrote Rx for 75 mcg in January but that family has only picked up two, 30 day supplies from that location. * Telephone Encounter - Lou Hogue MD - 08/20/2017 2:18 PM EST Labs obtained on 08/05/2017 at [facility] show a normal TSH of 2.63 and normal free t4 of 0.99. However my records indicate that Dr. Mejia increased dose of levothyroxine from 50 to 75 ug over 6 months ago. Violette and grandmother insist that the pill she is taking is white which would be 50 ug. Please contact parent to find out which she is taking. Also get name of pharmacy(Dr Mejia has been writing prescription) so we can verify current dose. documented in this encounter Plan of Treatment Not on file documented as of this encounter Visit Diagnoses Not on filedocumented in this encounter Care Teams Spool Maker Relationship Specialty Start Date End Date Parminder Mejia MD [address] [facility] [place] [address] PCP - General Pediatrics 09/01/15 09/18/23 documented as of this encounter
--- OUTSIDE RECORDS SUMMARY | 2024-11-01 22:21 | XMS_ITS | Encounter Summary ---
[place] [address] Care Team Providers Care Area Mechanic Name Role Phone Rohan Luevano DNP Primary Care Provider [phone] Reason for Referral * Consultation (Routine) - Closed Specialty Diagnoses / Procedures Referred By Magdi nixon Referred To Contact Endocrinology Diagnoses Autoimmune thyroiditis Other specified abnormal uterine and vaginal bleeding Rohan Luevano DNP [address] [place] [address] [facility] Endocrinology [address] [place] [phone] Referral ID Status Reason Start Date Expiration Date V isits Requested Visits Authorized [id number] Closed Consult, Test & Treat PCP Updated and/or Approved 09/19/2023 09/18/2024 6 6 Encounter Details Date Type Department Care Team (Latest Contact Info) Description 09/19/2023 Transcribe Orders eDH Incoming Referrals [phone] Rohan Luevano DNP [address] [place], [place] [id number] Autoimmune thyroiditis Social History Tobacco Use Types Packs/Day Years Used Date Smoking Tobacco: Never Passive Smoke Exposure: Yes Smokeless Tobacco: Never Comments:mom and stepdad smo kes outside Sex and Gender Information Value Date Recorded Sex Assigned at Not on file Gender Identity Not on file Sexual Orientation Not on file documented as of this encounter Plan of Treatment Scheduled Referrals Name Type Priority Associated Diagnoses Order Schedule Referral to Endocrinology Outpatient Referral Routine Autoimmune thyroiditis Ordered: 09/19/2023 documented as of this encounter Visit Diagnoses Diagnosis Autoimmune thyroiditis Chronic lymphocytic thyroiditis documented in this encounter Care Teams Area Mechanic Relationship Specialty Start Date End Date Rohan Luevano DNP [address] [place] [address] PCP - General Family Medicine 09/19/23 documented as of this encounter
--- OUTSIDE RECORDS SUMMARY | 2024-11-01 22:21 | XMS_ITS | Encounter Summary ---
[place] [address] Care Team Providers Care Communication Engineer Name Role Phone Jaimie Bruce APRN Primary Care Provider + Encounter Details Date Type Department Care Team (Late st Contact Info) Description 03/30/2015 [place] [address] Deepti Hogue APRN [address] [place] [address] Social History Tobacco Use Types Packs/Day Years Used Date Smoking Tobacco: Never Assessed Sex and Gender Information Value Date Recorded Sex Assigned at Not on file Gender Identity Not on file Sexual Orientation Not on file documented as of this encounter Plan of Treatment Not on file documented as of this encounter Procedures Procedure Name Priority Date/Time Associated Diagnosis Comments FILM LIBRARY STORAGE ONLY DX HAND Routine 03/30/2015 2:03 PM EDT documented in this encounter Results * Film Library- Storage only DX Hand (03/30/2015 2:03 PM EDT) Anatomical Region Laterality Modality Other 03/30/2015 2:03 PM EDT Narrative 04/28/2015 2:08 PM EDT This is a Non-reportable exam Procedure Note MAYTE, UNSIGNED REPORT - 04/28/2015 This is a Non-reportable exam Deepti Hogue APRN [facility] FILM LIBRARY O RDERABLES documented in this encounter Visit Diagnoses Not on filedocumented in this encounter Care Teams Communication Engineer Relationship Specialty Start Date End Date Jaimie Bruce APRN PCP - General 08/24/10 08/31/15 documented as of this encounter
--- OUTSIDE RECORDS SUMMARY | 2024-11-01 22:21 | XMS_ITS | Encounter Summary ---
Author Organization [facility] [place] [address] Care Team Providers Care Banding Machine Operator Name Role Phone Parminder Mejia MD Primary Care Provider [phone] Encounter Details Date Type Department Care Team (Latest Contact Info) Description 09/17/2023 Travel Social History Tobacco Use Types Packs/Day [...] on filedocumented in this encounter Care Teams Banding Machine Operator Relationship Specialty Start Date End Date Parminder Mejia MD [address] [place], [place] [address] PCP - General Pediatrics 09/01/15 09/18/23 documented as of this encounter
--- OUTSIDE RECORDS SUMMARY | 2024-11-01 22:21 | XMS_ITS | Encounter Summary ---
Author Organization [facility] [place] [address] Care Team Providers Care Flatwork Tier Name Role Phone Parminder Mejia MD Primary Care Provider [phone] Reason for Referral * Diagnostic Test (Routine) - Closed Specialty Diagnoses / Procedures Referred By Contac t Referred To Contact Radiology Diagnoses Dizzy spells Procedures MRI Brain wo Contrast (Epilepsy Protocol) MRI Brain wo Contrast Demetrio Vuong MD [facility] [place] [address] [place] [address] Referral ID Status Reason Start Date Expiration Date V isits Requested Visits Authorized [id number] Closed Specialty Service Requested 08/15/2023 02/12/2025 1 1 Reason for Visit * Diagnostic Test (Routine) - Closed Specialty Diagnoses / Procedures Referred By Contrebekah t Referred To Contact Radiology Diagnoses Dizzy spells Procedures MRI Brain wo Contrast (Epilepsy Protocol) MRI Brain wo Contrast Demetrio Vuong MD [facility] [place] [address] [place] [address] Referral ID Status Reason Start Date Expiration Date V isits Requested Visits Authorized [id number] Closed Specialty Service Requested 08/15/2023 02/12/2025 1 1 Encounter Details Date Type Department Care Team (Latest Contact Info) Description 09/17/2023 1:24 PM EST - 09/17/2023 11:59 PM EST Hospital [place] [address] Demetrio Vuong MD [facility] [place] [address] Dizzy spells Discharge Disposition: Home Social History [...] Procedure Name Priority Date/Time Associated Diagnosis Comments MRI BRAIN WO CONTRAST (EPILEPSY PROTOCOL) Routine 09/17/2023 2:20 PM EST Dizzy spells documented in this encounter Results * MRI Brain wo [...] who have questions please contact the health healthcare architect that requested your imaging first. ? Electronically signed by: Mike Pichardo MD, [facility] ([phone]), at 09/18/2023 10:37 AM Narrative 09/18/2023 10:37 AM EST EXAMINATION: MRI [...] patients who have questions please contactthe health healthcare architect that requested your imaging first. Electronically signed by: Mike Pichardo MD, [facility]([phone]), at 09/18/2023 10:37 AM Demetrio Vuong MD IMG MRI ORDERABLES documented in this encounter Visit Diagnoses Diagnosis Dizzy spells Dizziness and giddiness documented in this encounter Care Teams Flatwork Tier Relationship Specialty Start Date End Date Parminder [place] [address] PCP - General Pediatrics 09/01/15 09/18/23 documented as of this encounter
--- OUTSIDE RECORDS SUMMARY | 2024-11-01 22:21 | XMS_ITS | Encounter Summary ---
Author Organization [facility] [place] [address] Care Team Providers Care Candy Supervisor Name Role Phone Rohan Luevano EUGENIO Primary Care Provider Reason for Referral * Diagnostic Test (Routine) - Closed Specialty Diagnoses / Procedures Referred By Contrebekah t Referred To Contact Cardiology Diagnoses Dizzy spells Procedures Ziopatch 48 Hrs-15 Days Nay Sheikh MD [facility] [place] [address] [facility] [place] [address] Referral ID Status Reason Start Date Expiration Date V isits Requested Visits Authorized [id number] Closed Specialty Service Requested 10/13/2023 10/12/2024 1 1 Reason for Visit * Diagnostic Test (Routine) - Closed Specialty Diagnoses / Procedures Referred By Contrebekah t Referred To Contact Cardiology Diagnoses Dizzy spells Procedures Ziopatch 48 Hrs-15 Days Nay Sheikh MD [facility] [place] [address] [facility] [place] [address] Referral ID Status Reason Start Date Expiration Date V isits Requested Visits Authorized [id number] Closed Specialty Service Requested 10/13/2023 10/12/2024 1 1 Encounter Details Date Type Department Care Team (Latest Contact Info) Description 10/13/2023 2:57 PM EST - 10/13/2023 11:59 PM EST Hospital Encounter Non-Invasive Cardiology Lab [facility] [place] [phone] Elias Cr MD [facility] [place] [address] Dizzy spells Discharge Disposition: Home Social History [...] Procedure Name Priority Date/Time Associated Diagnosis Comments ZIOPATCH 48 HRS-15 DAYS Routine 10/13/2023 2:57 PM EST Dizzy spells documented in this encounter Results * Ziopatch 48 Hrs-15 Days (10/13/2023 2:57 PM EST) Total Enrollment Period 13.7956656 [id number] IRHYTHM Anatomical Region Laterality Modality Other 10/13/2023 [...] pain, lightheadedness, dizziness, fluttering, shortness of breath Elias Cr MD CARDIAC SERVICES ORD ERABLES documented in this encounter Visit Diagnoses Diagnosis Dizzy spells Dizziness and giddiness documented in this encounter Care Teams Candy Supervisor Relationship Specialty Start Date End Date Rohan Luevano DNP [address] [place] [place] [address] PCP - General Family Medicine 09/19/23 documented as of this encounter
--- OUTSIDE RECORDS SUMMARY | 2024-11-01 22:21 | XMS_ITS | Encounter Summary ---
Author Organization [facility] [place] [address] Care Team Providers Care Can Feeder Name Role Phone Parminder Mejia MD Primary Care Provider [phone] Encounter Details Date Type Department Care Team ([facility] st Contact Info) Description 08/05/2017 External Results Pediatric Endocrinology at [address] [id number] Lou Hogue MD Social History Tobacco Use [...] Name Priority Date/Time Associated Diagnosis Comments TSH Routine 08/05/2017 9:04 AM EDT T4, FREE Routine 08/05/2017 9:04 AM EDT documented in this encounter Results * (ABNORMAL) T4, free (08/05/2017 9:04 AM EDT) Free T4 0.99(Exte rnal Lab) EXTERNAL LAB Comment:ref range 0.82-1.40 ng/dL drawn at [facility] Blood specimen (specimen) 08/05/2017 9:04 AM EDT Historical Provider CHEMISTRY ORDERAB LES EXTERNAL LAB * (ABNORMAL) TSH (08/05/2017 9:04 AM EDT) Thyroid Stimulating Hormone 2.63(Exte rnal Lab) EXTERNAL LAB Comment:ref range 0.704-4.01 uIU/mL drawn at [facility] Blood specimen (specimen) 08/05/2017 9:04 AM EDT Historical Provider CHEMISTRY ORDERAB LES Performing Organization Address [facility] [employer] Phone Number EXTERNAL LAB documented in this encounter Visit Diagnoses Not on filedocumented in this encounter Care Teams Can Feeder Relationship Specialty Start Date End Date Parminder Mejia MD [address] [place] [address] PCP - General Pediatrics 09/01/15 09/18/23 documented as of this encounter
--- OUTSIDE RECORDS SUMMARY | 2024-11-01 22:21 | XMS_ITS | Encounter Summary ---
[place] [address] Care Team Providers Care Varnisher Plasticoater Name Role Phone Jaimie Bruce APRN Primary Care Provider + Encounter Details Date Type Department Care Team (Late st Contact Info) Description 09/23/2013 [place] [address] Deepti Hogue APRN [address] [place] [address] Social History Tobacco Use Types Packs/Day Years [...] Diagnosis Comments FILM LIBRARY STORAGE ONLY DX CHEST Routine 09/23/2013 12:58 PM EST documented in this encounter Results * Film Library- Storage only DX Chest (09/23/2013 12:58 PM EST) Anatomical Region Laterality Modality Other 09/23/2013 12:5 8 PM EST Narrative 04/28/2015 1:05 PM EDT This is a Non-reportable exam Procedure Note MAYTE, UNSIGNED REPORT - 04/28/2015 This is a Non-reportable exam Deepti Hogue APRN [facility] FILM LIBRARY O RDERABLES documented in this encounter Visit Diagnoses Not on filedocumented in this encounter Care Teams Varnisher Plasticoater Relationship Specialty Start Date End Date Jaimie Bruce APRN PCP - General 08/24/10 08/31/15 documented as of this encounter
--- OUTSIDE RECORDS SUMMARY | 2024-11-01 22:21 | XMS_ITS | Encounter Summary ---
[place] [address] Care Team Providers Care Partnership Development Manager Name Role Phone Parminder Mejia MD Primary Care Provider [phone] Encounter Details Date Type Department Care Team ([facility] st Contact Info) Description 08/14/2018 External Results [place] [address] Lou Hogue MD Social History Tobacco Use [...] Priority Date/Time Associated Diagnosis Comments TSH Routine 08/05/2018 9:32 AM EST T4, FREE Routine 08/05/2018 9:32 AM EST documented in this encounter Results * T4, free (08/05/2018 9:32 AM EST) Free T4 1.07 Comment:ref range 0.78-1.34 ng/dL drawn at [facility] Blood specimen (specimen) 08/05/2018 9:32 AM EST Historical Provider CHEMISTRY ORDERAB LES * TSH (08/05/2018 9:32 AM EST) Thyroid Stimulating Hormone 2.17 Comment:ref range 0.516-4.13 uIU/mL drawn at [facility] Blood specimen (specimen) 08/05/2018 9:32 AM EST Historical Provider CHEMISTRY ORDERAB LES documented in this encounter Visit Diagnoses Not on filedocumented in this encounter Care Teams Partnership Development Manager Relationship Specialty Start Date End Date Parminder Mejia MD [address] [place] [address] PCP - General Pediatrics 09/01/15 09/18/23 documented as of this encounter
--- OUTSIDE RECORDS SUMMARY | 2024-11-01 22:21 | XMS_ITS | Encounter Summary ---
[place] [address] Care Team Providers Care Client Support Associate Name Role Phone Parminder Mejia MD Primary Care Provider Encounter Details Date Type Department Care Team (Latest Contact Info) Description 02/03/2020 11:00 AM EDT TH Visit (TeleHealth) [place] [address] Lou Hogue MD Autoimmune hypothyroidism Social History Tobacco Use Types Packs/Day Years Used Date Smoking Tobacco: Passive Smo ke Exposure - Never Smoker Smokeless Tobacco: Never Comments:mom and stepdad smo kes outside Sex and Gender Information Value Date Recorded Sex Assigned at Not on file Gender Identity Not on file Sexual Orientation Not on file documented as of this encounter Progress Notes * Lou Hogue MD - 02/03/2020 11:00 AM EDT Hypothyroidism Follow-up Telehealth Visit Name: Violette FordgabrielleYohantenzin Age: 14 y.o. 3 m.o. : 2005 Gender: female PCP/Referring MD: [place] [address] , Summary: Violette is a 14 y.o. 3 m.o. female with short stature and autoimmune hypothyroidism, who I first evaluated at the request of her PCP,Parminder Mejia MD in April 2015. She was last seen inEndocrinology in January 2018. Interim history was obtained from Violette's mother, who accompanied ada the visit today. Chart is reviewed as [...] List Diagnosis Code ??? Acquired autoimmune hypothyroidism E06.3 ??? Attention deficit hyperactivity disorder (ADHD), combined type F90.2 ??? 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 Oppositional defiant disorder F91.3 ??? Short stature R62.52 ??? Asthma J45.909 Current Outpatient Medications on File Prior to Visit Medication Sig Dispense Refill ??? lisdexamfetamine (VYVANSE) 20 mg Capsule Take by mouth. Indications: take 20 mg every afternoon ??? levothyroxine (SYNTHROID) 75 mcg Tablet Take 1 tablet by mouth daily. 15 tablet 0 ??? ALBUTEROL INHL Inhale into the lungs. ??? FLUTICASONE PROPIONATE (FLOVENT HFA INHL) Inhale into the lungs. ??? lisdexamfetamine (VYVANSE) 30 mg Capsule Take 30 mg by mouth every morning. ??? LORATADINE ORAL Take by mouth as needed. No current facility-administered medications on file prior to visit. No Known Allergies Date of last visit: January 2018 History obtained from:Violette's mother by telehealth on the phone HPI: I spoke with Violette's mother today for followup of acquired autoimmune hypothyroidism which was diagnosed in 2014. Current symptoms include none. Patient denies change in energy level, heat / cold intolerance, hair loss and skin changes. Constipation was a problem in the past but not currently. Menarche occurred in June 2017. Mom states menses are every 3-5 weeks and quite heavy with significant dysmenorrhea. She plans to take Skyleigh to eye surgeon to start OCP. Illness since last visit : no Taking levothyroxine consistently: yes Brand and dose of LT4: levothyroxine 75 ug daily Most Recent Labs: obtained at [facility] in Jul or Aug according to mother. Will ask for these results. Social History: Lives with: mother and maternal grandmother Grade in School: 10th, attending remotely due to viral pandemic Activities:chorus, anime, riding bike ROS: ROS x 12 was negative. PHYSICAL EXAM: No physical exam performed today, telehealth visit. ASSESSMENT AND PLAN:14 y.o. 3 m.o. w/ acquired autoimmune hypothyroidism who is clinically a euthyroid. Will obtain labs that wre drawn at [facility] in Jul/Aug 2019. Additional issues discussed : none Additional testing recommended today:none Followup visit recommended : 6 mo documented in this encounter Plan of Treatment Not on file documented as of this encounter Visit Diagnoses Diagnosis Autoimmune hypothyroidism documented in this encounter Care Teams Client Support Associate Relationship Specialty Start Date End Date Parminder Mejia MD [address] [place] [address] PCP - General Pediatrics 09/01/15 09/18/23 documented as of this encounter
--- OUTSIDE RECORDS SUMMARY | 2024-11-01 22:21 | XMS_ITS | Encounter Summary ---
[place] [address] Care Team Providers Care Spray Painter Name Role Phone Parminder Mejia MD Primary Care Provider [phone] Encounter Details Date Type Department Care Team (Late st Contact Info) Description 03/08/2023 [place] [address] Sulma Adams RN Social History Tobacco Use Types Packs/Day Years Used Date Smoking Tobacco: Passive Smo ke Exposure - Never Smoker Smokeless Tobacco: Never Comments:mom and stepdad smo kes outside Sex and Gender Information Value Date Recorded Sex Assigned at Not on file Gender Identity Not on file Sexual Orientation Not on file documented as of this encounter Miscellaneous Notes * Telephone Encounter - Sulma Adams RN - 03/08/2023 2:10 PM EDT Called and provided information on upcoming SPT on 03/23/23. Patient to bring fresh strawberry to appointment and to stop taking all antihistamines 1 week prior to test. Denies any other questions orconcerns. documented in this encounter Plan of Treatment Not on file documented as of this encounter Visit Diagnoses Not on filedocumented in this encounter Care Teams Spray Painter Relationship Specialty Start Date End Date Parminder Mejia MD [address] [place] [address] PCP - General Pediatrics 09/01/15 09/18/23 documented as of this encounter
--- OUTSIDE RECORDS SUMMARY | 2024-11-01 22:21 | XMS_ITS | Encounter Summary ---
[place] [address] Care Team Providers Care Program Services Assistant Name Role Phone Parminder Mejia MD Primary Care Provider [phone] Encounter Details Date Type Department Care Team (Late st Contact Info) Description 03/04/2019 Telephone Pediatric [place] [address] Shawnee Lara Social History Tobacco Use Types Packs/Day Years Used Date Smoking Tobacco: Passive Smo ke Exposure - Never Smoker Smokeless Tobacco: Never Comments:mom and stepdad smo kes outside Sex and Gender Information Value Date Recorded Sex Assigned at Not on file Gender Identity Not on file Sexual Orientation Not on file documented as of this encounter Miscellaneous Notes * Telephone Encounter - Shawnee Cole - 03/04/2019 10:06 AM EDT Patient no showed 5/6 appt Called but no voicemail set up documented in this encounter Plan of Treatment Not on file documented as of this encounter Visit Diagnoses Not on filedocumented in this encounter Care Teams Program Services Assistant Relationship Specialty Start Date End Date Parminder Mejia MD [address] [place], [place] [id number] PCP - General Pediatrics 09/01/15 09/18/23 documented as of this encounter
--- OUTSIDE RECORDS SUMMARY | 2024-11-01 22:21 | XMS_ITS | Encounter Summary ---
[place] [address] Care Team Providers Care Powerhouse Engineer Name Role Phone Jaimie Bruce APRN Primary Care Provider + Encounter Details Date Type Department Care Team (Late st Contact Info) Description 03/26/2015 Orders [place] [address] Deepti Hogue APRN [address] [place] [address] Social History Tobacco Use Types Packs/Day Years [...] FILM LIBRARY STORAGE ONLY DX CHEST Routine 03/26/2015 12:20 PM EDT documented in this encounter Results * Film Library- Storage only DX Chest (03/26/2015 12:20 PM EDT) Anatomical Region Laterality Modality Other 03/26/2015 12:2 0 PM EDT Narrative 04/28/2015 12:25 PM EDT This is a Non-reportable exam Procedure Note MAYTE, UNSIGNED REPORT - 04/28/2015 This is a Non-reportable exam Deepti Hogue APRN [facility] FILM LIBRARY O RDERABLES documented in this encounter Visit Diagnoses Not on filedocumented in this encounter Care Teams Powerhouse Engineer Relationship Specialty Start Date End Date Jaimie Bruce APRN PCP - General 08/24/10 08/31/15 documented as of this encounter
--- OUTSIDE RECORDS SUMMARY | 2024-11-01 22:21 | XMS_ITS | Encounter Summary ---
[place] [address] Care Team Providers Care Vice President Of Advertising Name Role Phone Parminder Mejia MD Primary Care Provider [phone] Reason for Visit * Reason Comments Follow-up Encounter Details Date Type Department Care Team (Latest Contact Info) Description 01/30/2018 9:00 AM EDT Office Visit [place] [id number] Lou Hogue MD Acquired hypothyroidism; Short stature (child); Overweight Social History Tobacco Use Types Packs/Day Years [...] Sign Reading Time Taken Comments Blood Pressure 139/68 01/30/2018 9:01 AM EDT Pulse 115 01/30/2018 9:01 AM EDT Temperature - - Respiratory Rate - - Oxygen Saturation - - Inhaled Oxygen Concentration - - Weight 50.4 kg (111 lb 1.8 oz) 01/30/2018 9:01 A M EDT Height 142.6 cm (4' 8.14) 01/30/2018 9:01 AM ED T Body Mass Index 24.78 01/30/2018 9:01 AM EDT Body Mass Index Percentile 91.80% 01/30/2018 9:0 1 AM EDT Growth Chart: [facility] (Girls, 2- 20 Years) documented in this encounter Progress Notes * Lou Hogue MD - 01/30/2018 9:00 AM EDT Hypothyroidism Follow-up Office Visit Name: Violette Barrera Age: 12 y.o. 3 m.o. : 2005 Gender: female PCP/Referring MD: Parminder Mejia MD [address] [place] [address] [place] [address] , Summary: Violette is a 12 y.o. 3 m.o. female with short stature and autoimmune hypothyroidism, who I first evaluated at the request of her PCP,Parminder Mejia MD in April 2015. She was last seen inEndocrinology in January 2017. Interim history was obtained from Violette's mother, [...] greater than 1300. In consultation with Dr. Mcacnn in this office, she was started on [...] to Visit Medication Sig Dispense Refill ??? ALBUTEROL INHL Inhale into the lungs. ??? FLUTICASONE PROPIONATE (FLOVENT HFA INHL) Inhale into the lungs. ??? lisdexamfetamine (VYVANSE) 30 mg Capsule Take 30 mg by mouth every morning. ??? LORATADINE ORAL Take by mouth as needed. ??? [DISCONTINUED] DEXTROAMPHETAMINE/AMPHETAMINE (ADDERALL ORAL) Take 5 mg by mouth daily. No current facility-administered medications on file prior to visit. No Known Allergies Date of last visit: Aug 2017 History obtained from:Violette's mother HPI: Violette Barrera is a 12 y.o. 3 m.o. here today for followup of acquired [...] levothyroxine 75 ug daily Most Recent Labs: none. Social History: Lives with: parents have and Violette and her mother are living with maternal grandmother Grade in School: 7th Activities:chorus, anime, riding bike ROS: ROS x 12 as evidenced by a medical history form filled out by the mother was negative. PHYSICAL EXAM: Most Recent Vitals: 01/30/18 0901 BP: 139/68 Pulse: (!) 115 Wt Readings from Last 3 Encounters: 01/30/18 50.4 kg (111 lb 1.8 oz) (64 %)* 08/08/17 49.9 kg (110 lb 0.2 oz) (69 %)* 01/31/17 50.3 kg (110 lb 12.8 oz) (77 %)* * Growth percentiles are based on CDC 2-20 Years data. Ht Readings from Last 3 Encounters: 01/30/18 (!) 142.6 cm (4' 8.14) (1 %)* 08/08/17 141.5 cm (4' 7.71) (2 %)* 01/31/17 138.4 cm (4' 6.49) (2 %)* * Growth percentiles are based on CDC 2-20 Years data. Body mass index is 24.78 kg/(m^2). 92 %ile based on CDC 2-20 Years BMI-for-age data using vitals from 01/30/2018. 64 %ile based on CDC 2-20 Years [id number] data using vitals from 01/30/2018. 1 %ile based on CDC 2-20 Years [id number] data using vitals from 01/30/2018. Growth velocity: 2.3 cm/yr HEENT: NE Thyroid:normal size, firm and without masses Lungs:good air exchange , clear Cardiac:RR, no murmur Abdomen:soft, obese, without obvious masses Edward stage: NE Skin: minimal acne ASSESSMENT AND PLAN:12 y.o. 3 m.o. w/ acquired autoimmune hypothyroidism who is clinically euthyroid. Growth rate has slowed as Violette approaches epiphyseal fusion. She is likely to be, at most, 58inches in height. Both mom and Violette were not surprised by this since there are some very short adults in the family, Weight is stable and BMI has again decreased slightly to the 92%. TSH and free T4 to be obtained at [facility] next week, lab slips given to parent. 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 Additional testing recommended today:none Counseled on multiple [...] Visit Diagnoses Diagnosis Acquired hypothyroidism Unspecified hypothyroidism Short stature (child) Overweight documented in this encounter Care Teams Vice President Of Advertising Relationship Specialty Start Date End Date Parminder Mejia MD [address] [place] [address] PCP - General Pediatrics 09/01/15 09/18/23 documented as of this encounter
--- OUTSIDE RECORDS SUMMARY | 2024-11-01 22:21 | XMS_ITS | Encounter Summary ---
[place] [address] Care Team Providers Care Desktop Support Specialist Name Role Phone Parminder Mejia MD Primary Care Provider [phone] Encounter Details Date Type Department Care Team (Latest Contact Info) Description 08/07/2018 9:00 AM EST Office Visit Pediatric [place] [address] Lou Hogue MD Autoimmune hypothyroidism; Short stature [...] Sign Reading Time Taken Comments Blood Pressure 120/56 08/07/2018 8:50 AM EST Pulse 87 08/07/2018 8:50 AM EST Temperature - - Respiratory Rate - - Oxygen Saturation - - Inhaled Oxygen Concentration - - Weight 51.1 kg (112 lb 9.6 oz) 08/07/2018 8:50 A M EST Height 143.2 cm (4' 8.38) 08/07/2018 8:50 AM ES T Body Mass Index 24.91 08/07/2018 8:50 AM EST Body Mass Index Percentile 91.03% 08/07/2018 8:5 0 AM EST Growth Chart: CDC (Girls, 2- 20 Years) documented in this encounter Progress Notes * Lou Hogue MD - 08/07/2018 9:00 AM EST Hypothyroidism Follow-up Office Visit Name: Violette Barrera Age: 12 y.o. 9 m.o. : 2005 Gender: female PCP/Referring MD: Parminder Mejia MD [address] [place] [address] [place] [address] , Summary: Violette is a 12 y.o. 9 m.o. female with short stature and autoimmune [...] visit: January 2018 History obtained from:Violette's mother HPI: Violette Barrera is a 12 y.o. 9 m.o. here today for followup of acquired [...] ug daily Most Recent Labs: obtained at [facility] on 08/05/2018 showed a free T4 of 1.07 and TSH of 2.17 Social History: Lives with: mother and maternal grandmother Grade in School: 8th Activities:chorus, anime, riding bike ROS: ROS x 12 as evidenced by a medical history form filled out by the mother was negative. PHYSICAL EXAM: Most Recent Vitals: 08/07/18 0850 BP: 120/56 Pulse: 87 PainSc: 0 - No pain Wt Readings from Last 3 Encounters: 08/07/18 51.1 kg (112 lb 9.6 oz) (59 %)* 01/30/18 50.4 kg (111 lb 1.8 oz) (64 %)* 08/08/17 49.9 kg (110 lb 0.2 oz) (69 %)* * Growth percentiles are based on CDC (Girls, 2-20 Years) data. Ht Readings from Last 3 Encounters: 08/07/18 (!) 143.2 cm (4' 8.38) (<1 %)* 01/30/18 (!) 142.6 cm (4' 8.14) (1 %)* 08/08/17 141.5 cm (4' 7.71) (2 %)* * Growth percentiles are based on CDC (Girls, 2-20 Years) data. Body mass index is 24.91 kg/m??. 91 %ile based on CDC (Girls, 2-20 Years) BMI-for-age based on body measurements available as of 08/07/2018. 59 %ile based on CDC (Girls, 2-20 Years) bykbhp-[id number] data based on Weight recorded on 08/07/2018. <1 %ile based on CDC (Girls, 2-20 Years) Tgqdoyy-pgl-edu data based on Stature recorded on 08/07/2018. Growth velocity: 1.2 cm/yr(growth nearly complete HEENT: NE Thyroid:normal size, firm and without masses Lungs:good air exchange , clear Cardiac:RR, no murmur Abdomen:soft, obese, without obvious masses Edward stage: NE Skin: minimal acne ASSESSMENT AND PLAN:12 y.o. 9 m.o. w/ acquired autoimmune hypothyroidism who is clinically and chemically euthyroid. Growth rate has slowed as Skyleigh approaches epiphyseal fusion. Weight is stable. 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 Additional testing recommended today:none Followup visit recommended : 6 mo documented in this encounter Plan of Treatment Not on file documented as of this encounter Visit Diagnoses Diagnosis Autoimmune hypothyroidism Short stature (child) documented in this encounter Care Teams Desktop Support Specialist Relationship Specialty Start Date End Date Parminder Mejia MD [address] [place] [address] PCP - General Pediatrics 09/01/15 09/18/23 documented as of this encounter
--- OUTSIDE RECORDS SUMMARY | 2024-11-01 22:21 | XMS_ITS | Encounter Summary ---
[place] [address] Care Team Providers Care Professional Services Consultant Name Role Phone Jaimie Bruce APRN Primary Care Provider + Reason for Visit * Reason Comments Other New Patient. Encounter Details Date Type Department Care Team (Latest Contact Info) Description 04/28/2015 10:00 AM EDT Office Visit [place] [address] Lou Hogue MD Autoimmune hypothyroidism Discharge Disposition: Home Social History Tobacco Use [...] Sign Reading Time Taken Comments Blood Pressure 126/51 04/28/2015 9:51 AM EDT Pulse 102 04/28/2015 9:51 AM EDT Temperature - - Respiratory Rate - - Oxygen Saturation - - Inhaled Oxygen Concentration - - Weight 37.3 kg (82 lb 3.2 oz) 04/28/2015 9:51 AM EDT Height 124.9 cm (4' 1.17) 04/28/2015 9:51 AM ED T Body Mass Index 23.9 04/28/2015 9:51 AM EDT Body Mass Index Percentile 95.28% 04/28/2015 9:5 1 AM EDT Growth Chart: CDC (Girls, 2- 20 Years) documented in this encounter Progress Notes * Lou Hogue MD - 04/28/2015 10:44 AM EDT SUBJECTIVE: Violette is a 10-6/12-year-old female with newly diagnosed autoimmune hypothyroidism, being evaluated at the request of her PCP, Dr. Jaimie Bruce. Medical records from Dr. Bruce 's office and a medical history form filled out by the mother were reviewed. Additional history was obtained from Violette's mother, who accompanied her on the visit today. HPI: Violette was noted by her PCP to have a deceleration in growth velocity between ages 8 to 9. She had previously been growing below but parallel to the curve since age 5. Laboratory evaluation included an IgF-1 of 139, [...] mcg a day on April 06, 2015. Violette has a history of constipation several years ago but not over the past year. She has an increased energy level. She has no difficulty sleeping. She has had no hair loss and no skin changes. Mom notes that she recently developed adult axillary odor and has both axillary and pubic hair, but no breast development. Past Medical History: Violette was born at 34 weeks gestation by induction for preeclampsia. Her length was 15-1/2 inches, weight 3 pounds, 3.5 ounces. She was in the hospital for apnea of prematurity, mild hyperbilirubinemia requiring phototherapy, and weight gain. She spent two weeks and two days in the hospital. Violette has had no hospitalizations and no surgery. Her current medications are Vyvanse 30 mg a day; Adderall 5 mg in the afternoon; and levothyroxine 50 mcg daily. She has no known allergies. Her immunizations are up to date. Her chronic health problems are oppositional defiant disorder and attention- deficit hyperactivity disorder. Family History: Mother is 61-1/2 inches in height. She has hypothyroidism, which was diagnosed at age 26. Dad is 66-1/2 inches in height and has depression and a seizure disorder. Violette has an older brother in good health. The maternal grandfather has no medical problems. The maternal grandmother has heart disease, hearing loss, and hypercholesterolemia. The paternal grandfather has Crohn's dis ease. The paternal grandmother has depression. There were no family members besides the mother withthyroid disease. Social History: Violette lives with her unmarried parents and her brother, Josue. She is entering the fifth grade. She is doing average work. She enjoys swimming. Review of systems X 12 as evidenced by a medical history form filled out by the mother was negativeexcept as described above. OBJECTIVE: Height 124.9 cm (1st percentile), weight 37.28 kg (61st percentile). Her BMI is at the 95th percentile. BP 126/51, pulse 102. The pupils were equal, round, and reactive to light. Extraocular muscles were intact. The thyroid gland was slightly firm in texture but of normal size and without masses. The lungs were clear. Examination of the heart revealed a regular rhythm and no murmur. The abdomen was obese but without obvious masses, tenderness, or organomegaly. Breasts were Edward stage I. Pubichair was not examined because Violette became upset and uncooperative. Patellar reflexes were 1 to 2+. There were no skin lesions. 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 Her thyroid peroxidase antibodies were very elevated at greater than 1300. Her thyroglobulin antibodies were elevated at 290. Thediagnosis of acquired autoimmune hypothyroidism was discussed with mom. It is too early to recheck t hyroid function tests on replacement therapy, and they will be done the first week of May by herP. I would like to see Violette back in Endocrinology in four months. I would like to follow her growth carefully. 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 Thank you for allowing me to participate in Violette's care. If you have any questions regarding myfindings or recommendations, please do not hesitate to contact me. documented in this encounter Plan of Treatment Not on file documented as of this encounter Visit Diagnoses Diagnosis Autoimmune hypothyroidism documented in this encounter Care Teams Professional Services Consultant Relationship Specialty Start Date End Date Jaimie Bruce, SYED PCP - General 08/24/10 08/31/15 documented as of this encounter
--- OUTSIDE RECORDS SUMMARY | 2024-11-01 22:21 | XMS_ITS | Encounter Summary ---
[place] [address] Care Team Providers Care Orthopedic Podiatrist Name Role Phone Parminder Mitchell MD Primary Care Provider [phone] Reason for Visit * Reason Comments Follow-up Encounter Details Date Type Department Care Team (Latest Contact Info) Description 03/02/2016 1:00 PM EDT Office Visit [place] [id number] Lou Saleem MD Autoimmune hypothyroidism Social History Tobacco Use [...] Sign Reading Time Taken Comments Blood Pressure 114/61 03/02/2016 12:49 PM EDT Pulse 94 03/02/2016 12:49 PM EDT Temperature - - Respiratory Rate - - Oxygen Saturation - - Inhaled Oxygen Concentration - - Weight 39.5 kg (87 lb 1.3 oz) 6 12:49 PM EDT Height 130 cm (4' 3.18) 03/02/2016 12: 49 PM EDT Body Mass Index 23.37 03/02/2016 12:49 PM EDT Body Mass Index Percentile 92.83% 03/02 12:49 PM EDT Growth Chart: CDC (Girls, 2- 20 Years) documented in this encounter Progress Notes * Lou Saleem MD - 03/02/2016 1:08 PM EDT Hypothyroidism Follow-up Office Visit Name: Violette Barrera Age: 10 y.o. 4 m.o. : 2005 Gender: female PCP/Referring MD: PARMINDER MITCHELL MD [address] [place] [address] [place] [address] , Summary: Violette is a 10 y.o. 4 m.o. female with short stature and autoimmune hypothyroidism, who I first evaluated at the request of her PCP,PARMINDER MITCHELL MD in April 2015. She was last [...] mother. She had axillary hair. It was toosoon to recheck TFT's and the plan was [...] Oppositional defiant disorder F91.3 ??? Short stature [id number] Current Outpatient Prescriptions on File Prior to Visit Medication Sig Dispense Refill ??? lisdexamfetamine (VYVANSE) 30 mg Capsule Take 30 mg by mouth every morning. ??? DEXTROAMPHETAMINE/AMPHETAMINE (ADDERALL ORAL) Take 5 mg by mouth daily. ??? LORATADINE ORAL Take by mouth as needed. ??? [DISCONTINUED] diaZEPam (DIASTAT ACUDIAL) 5-7.5-10 mg Kit 5 milligrams, [place], PRN, seizure longerthan 5 minutes (Patient not taking: No sig reported) No current facility-administered medications on file prior to visit. No Known Allergies Date of last visit:Apr 2015 History obtained from:Violette's mother HPI: Violette Barrera is a 10 y.o. 4 m.o. here today for followup [...] and dose of LT4: levothyroxine 75 ug daily(Dr. Mitchell obtained TFTs and according to parent, dose was increased to 75 ug two weeks ago) Most Recent Labs: not available Social History: Grade in School: 5th Activities:chorus, swimming ROS: ROS x 12 as evidenced by a medical history form filled out by the parent was negative except mom states asthma has been more problmatic and Violette was started on daily Flovent.. PHYSICAL EXAM: Vitals: 03/02/16 1249 BP: 114/61 Pulse: 94 Wt Readings from Last 3 Encounters: 03/02/16 39.5 kg (87 lb 1.3 oz) (53 %)* 09/01/15 36.9 kg (81 lb 5.6 oz) (51 %)* 04/28/15 37.3 kg (82 lb 3.2 oz) (61 %)* * Growth percentiles are based on CDC 2-20 Years data. Ht Readings from Last 3 Encounters: 03/02/16 (!) 130 cm (4' 3.18) (1 %)* 09/01/15 (!) 126.9 cm (4' 1.96) (1 %)* 04/28/15 (!) 124.9 cm (4' 1.17) (<1 %)* * Growth percentiles are based on CDC 2-20 Years data. Body mass index is 23.37 kg/(m^2). 93 %ile based on CDC 2-20 Years BMI-for-age data using vitals from 03/02/2016. 53 %ile based on CDC 2-20 Years [id number]-[id number] data using vitals from 03/02/2016. 1 %ile based on CDC 2-20 Years slipkbh-guk-uly data using vitals from 03/02/2016. Growth velocity: 6.2 cm/yr HEENT: NE Thyroid:normal size, firm and without masses Lungs:good air exchange , clear Cardiac:RR, no murmur Abdomen:soft, obese, without obvious masses Edward stage: Breasts Edward l, pubic hair Edward ll-lll Neuro:patellar reflexes 2+ Skin: no acne ASSESSMENT AND PLAN:10 y.o. 4 m.o. w/ acquired autoimmune hypothyroidism who is clinically euthyroid.. Excellent interval growth with normal development and normal weight gain(although BMI remains inthe overweight range.. Growth chart and recent progress reviewed in detail with family. Additional issues discussed : Short stature- most [...] Followup visit recommended : 6 mo ADDENDUM: I spoke with Dr. Mitchell after Violette and her mother left the office left the office. Labs in early January showed a TSH of 138 and free T4 of 0.51. He spoke with Eliana Roper in this office who thought labs were indicative of non- compliance. Dr. Mitchell advised parental supervision of every dose. Dose was also increased to 75 ug. Repeat levels to be drawn in 4-6 weeks. I also learned that arranges for lab work due to Violette's severe phobia over phlebotomy requiring lorazopam before each draw, documented in this encounter Miscellaneous Notes * Addendum Note - Lou Saleem MD - 03/03/2016 6:44 PM EDTAddended by: LOU SALEEM on: 03/03/2016 06:44 PM Modules accepted: Level of Service documented in this encounter Plan of Treatment Not on file documented as of this encounter Visit Diagnoses Diagnosis Autoimmune hypothyroidism documented in this encounter Care Teams Orthopedic Podiatrist Relationship Specialty Start Date End Date Parminder Mitchell MD [address] [place] [address] [place] [address] PCP - General Pediatrics 09/01/15 09/18/23 documented as of this encounter
--- OUTSIDE RECORDS SUMMARY | 2024-11-01 22:21 | XMS_ITS | Encounter Summary ---
[place] [address] Care Team Providers Care Equipment Man Name Role Phone Parminder Mejia MD Primary Care Provider [phone] Encounter Details Date Type Department Care Team ([facility] st Contact Info) Description 09/03/2015 External Results Pediatric [place] [address] Lou Hogue MD Social History Tobacco Use [...] Procedure Name Priority Date/Time Associated Diagnosis Comments EXTERNAL LAB RESULTS Routine 08/26/2015 7:16 AM EST EXTERNAL LAB RESULTS Routine 08/26/2015 7:16 AM EST documented in this encounter Results * (ABNORMAL) External Lab Results (08/26/2015 7:16 AM EST) Thyroid Stimulating Hormone 3.12(Exter nal Lab) EXTERNAL LAB Comment:0.704-4.01 Blood specimen (specimen) 08/26/2015 7:16 AM EST Lou Hogue MD CHEMISTRY ORDERABLES EXTERNAL LAB * (ABNORMAL) External Lab Results (08/26/2015 7:16 AM EST) Free T4 1.13(Exter nal Lab) EXTERNAL LAB Comment:0.82- 1.40 ng/dL Blood specimen (specimen) 08/26/2015 7:16 AM EST Lou Hogue MD CHEMISTRY ORDERABLES Performing Organization Address [facility] [place] [facility] Co de Phone Number EXTERNAL LAB documented in this encounter Visit Diagnoses Not on filedocumented in this encounter Care Teams Equipment Man Relationship Specialty Start Date End Date Parminder Mejia MD [address] [place] [address] PCP - General Pediatrics 09/01/15 09/18/23 documented as of this encounter
--- OUTSIDE RECORDS SUMMARY | 2024-11-01 22:21 | XMS_ITS | Encounter Summary ---
Author Organization [facility] [place] [address] Care Team Providers Care Teacher Hearing Impaired Name Role Phone Parminder Mejia MD Primary Care Provider [phone] Encounter Details Date Type Department Care Team (Latest Contact Info) Description 08/15/2023 Travel Social History Tobacco Use Types Packs/Day [...] on filedocumented in this encounter Care Teams Teacher Hearing Impaired Relationship Specialty Start Date End Date Parminder Mejia MD [address] [place], [place] [address] PCP - General Pediatrics 09/01/15 09/18/23 documented as of this encounter
--- OUTSIDE RECORDS SUMMARY | 2024-11-01 22:21 | XMS_ITS | Encounter Summary ---
[place] [address] Care Team Providers Care Leak Gang Supervisor Name Role Phone Parminder Mejia MD Primary Care Provider [phone] Reason for Visit * Allergy Testing (Routine) - Closed Specialty Diagnoses / Procedures Referred By Magdi nixon Referred To Contact Allergy Diagnoses Allergy to other foods Parminder Mejia MD [address] [place] [address] [place] [address] [facility] [address] [place] [address] Referral ID Status Reason Start Date Expiration Date V isits Requested Visits Authorized [id number] Closed Consult, Test & Treat PCP Updated and/or Approved 01/11/2023 01/11/2024 6 6 Encounter Details Date Type Department Care Team ([facility] Contact Info) Description 01/26/2023 9:00 AM EDT [place] [address] Luis Montilla MD Adverse food reaction, initial encounter Social History Tobacco Use Types Packs/Day [...] Sign Reading Time Taken Comments Blood Pressure 108/62 01/26/2023 8:39 AM EDT Pulse 76 01/26/2023 8:39 AM EDT Temperature - - Respiratory Rate - - Oxygen Saturation 100% 01/26/2023 8:39 AM EDT Inhaled Oxygen Concentration - - Weight 74.3 kg (163 lb 14.4 oz) 01/26/2023 8:39 AM EDT Height - - Body Mass Index - - documented in this encounter Patient Instructions * Patient Instructions* Luis Montilla MD - 01/26/2023 9:00 AM EDT Get labs drawn on level 3L Bring one fresh strawberry with you to your next appointment for skin testing Skin testing at next visit to strawberry Avoid all antihistamines for 7 days prior to skin testing (Zyrtec, Cetirizine, Claritin, Loratadine, Franyc, Fexofenadine, Xyzal, Levocetirizine, Benadryl, Diphenhydramine). documented in this encounter Progress Notes * Luis Montilla MD - 01/26/2023 9:00 AM EDT Images from the original note were not included. [facility] Section of Allergy and Clinical Immunology Date of Service: 01/26/23 Primary Care Provider: Parminder Mejia MD Patient Age: 17 y.o. Patient : 2005 Reason for Evaluation: adverse food reaction Historian: Patient Subjective: Patient ID: Violette Barrera is a 17 y.o. female who presents for evaluation of an adversefood reaction. She reports that strawberries make her throat itchy and makes it feel like it is hard to breathe (throat feels tight). Occurs with cooked and fresh strawberries. Symptoms started 3 months ago. Sx start within minutes of eating strawberries. Sx last more than 9-10 hours. She has not taken any medications for her symptoms when they occur. No rash. No GI symptoms. No wheezing. Past Medical History: Diagnosis Date ??? ADHD ??? Asthma 03/03/2016 ??? Hypothyroidism ??? Obesity, pediatric, BMI 95th to 98th percentile for age 502/13/2013 ??? Oppositional defiant disorder 09/03/2012 ??? Short stature 06/07/2015 History reviewed. No pertinent surgical history. Outpatient Medications Marked as Taking for the 01/26/23 encounter (Office Visit) with Luis Montilla MD Medication Sig Dispense Refill ??? lisdexamfetamine (VYVANSE) 20 mg Capsule Take by mouth. Indications: take 20 mg every afternoon ??? levothyroxine (SYNTHROID) 75 mcg Tablet Take 1 tablet by mouth daily. 15 tablet 0 ??? ALBUTEROL INHL Inhale into the lungs. ??? FLUTICASONE PROPIONATE (FLOVENT HFA INHL) Inhale into the lungs. ??? lisdexamfetamine (Vyvanse) 30 mg capsule Take 30 mg by mouth every morning. ??? LORATADINE ORAL Take by mouth as needed. No Known Allergies Family History Problem Relation Age of Onset ??? Thyroid Disease Mother 26 hypothyroidism ??? Asthma Mother ??? Seizure Disorder Father ??? Depression Father ??? Allergies Brother ??? Hearing Loss Maternal Grandmother ??? Hyperlipidemia Maternal Grandmother ??? Heart Disease Maternal Grandmother ??? Rheumatoid Arthritis Paternal Grandmother ??? Depression Paternal Grandmother ??? Crohn Disease Paternal Grandfather Social History Tobacco Use ??? Smoking status: Passive Smoke Exposure - Never Smoker ??? Smokeless tobacco: Never ??? Tobacco comments: mom and stepdacarla smokes outside Review of Systems: 10 point review of systems reviewed and negative except as above. Environmental History: not applicable Objective: BP 108/62 Pulse 76 Wt 74.3 kg (163 lb 14.4 oz) SpO2 100% View : No data to display. Wt Readings from Last 3 Encounters: 01/26/23 74.3 kg (163 lb 14.4 oz) (91 %)* 08/07/18 51.1 kg (112 lb 9.6 oz) (59 %)* 01/30/18 50.4 kg (111 lb 1.8 oz) (64 %)* * Growth percentiles are based on CDC (Girls, 2-20 Years) data. Physical exam: Constitutional: [...] tone of speech, normalthought process and content Review of Medical Records: no records available for review Assessment and Plan: Violette Barrera is a 17 y.o. female with a PMH significant for hypothyroidism, ADHD, asthma, and obesity who presented to the Allergy/Immunology Division for evaluation of adverse reactionsto strawberries beginning in October 2022. Her symptoms start within minutes of eating cooked or fresh strawberries and include itchy throat and sensation of her throat tightness. She has not taken any medications for her symptoms and symptoms typically persist for 9-10 hours. She has not had any associated rash, respiratory or GI symptoms. Recommendations: 1. Strict avoidance of strawberry for now 2. Check sIgE level to strawberry 3. Skin test to fresh strawberry at next visit. Patient instructed to bring one strawberry to this appointment. Risks and benefits of skin testing were discussed in detail with the patient. He/she requested skintesting to the allergens as planned. Consent was obtained today. He/she has been counseled to stop antihistamines 7 days prior to skin testing. All questions were answered, and patient expressed understanding of the plan. Thank you for the opportunity to participate in the care of your patient. Ongoing follow-up with the patient's primary care physician is recommended and encouraged. If I can provide any further assistance, please do not hesitate to contact me. Next visit: Return for Skin testing 30 min. Luis Montilla MD Allergy and [place] [address] [email or web address] documented in this encounter Miscellaneous Notes * Addendum Note - Luis Montilla MD - 01/26/2023 9:00 AM EDTAddended by: LUIS MONTILLA on: 03/08/2023 01:29 PM Modules accepted: Orders documented in this encounter Plan of Treatment Not on file documented as of this encounter Procedures Procedure Name Priority Date/Time Associated Diagnosis Comments HC ALLERGEN (IGE), LEVEL 1 Routine 01/26/2023 9:55 AM EDT Adverse food reaction, initial encounter documented in this encounter Results * [place] IgE (01/26/2023 9:55 AM EDT) [place], IgE <0.35 kU/L [facility] Comment: Reference Ranges <0.35 kU/L Class 0: ??Normal 0.35-0.69 kU/L Class 1: ??Low level of allergy, indicative of ongoing sensitization 0.70-3.49 kU/L Class 2: ??Moderate level of allergy, indicative of stronger ongoing sensitization 3.50-17.49 kU/L Class 3: ??High level of allergy, indicative of high level sensitization 17.5-49.9 kU/L Class 4: Very high level of allergy, indicative of very high level sensitization 50.0-100 kU/L Class 5: Very high level of allergy, indicative of very high level sensitization Blood 01/26/2023 9:55 AM EDT 01/26/2023 12:06 PM EDT Narrative Resulting Agency Comment Spec In Lab Luis Montilla MD IMMUNOLOGY ORDERABL ES [facility] [place] [address] documented in this encounter Visit Diagnoses Diagnosis Adverse food reaction, initial encounter documented in this encounter Care Teams Leak Gang Supervisor Relationship Specialty Start Date End Date Parminder Mejia MD [address] [place] [address] PCP - General Pediatrics 09/01/15 09/18/23 documented as of this encounter
--- OUTSIDE RECORDS SUMMARY | 2024-11-01 22:21 | XMS_ITS | Encounter Summary ---
[place] [address] Care Team Providers Care Wood Handler Name Role Phone Parminder Mejia MD Primary Care Provider [phone] Encounter Details Date Type Department Care Team (Late st Contact Info) Description 04/21/2020 External Results Pediatric Endocr[place]ology [place] [address] Cortney Waterman RN Social History Tobacco Use Types Packs/Day [...] Date/Time Associated Diagnosis Comments TSH CASCADE Routine 04/17/2020 11:50 AM EDT documented in this encounter Results * (ABNORMAL) TSH [place] (04/17/2020 11:50 AM EDT) Thyroid Stimulating Hormone 1.55(Exter nal Lab) 0.52 - 4.13 uIU/mL EXTERNAL LAB Free T4 1.26(Exter nal Lab) 0.78 - 1.34 ng/dL EXTERNAL LAB Blood specimen (specimen) 04/17/2020 11:50 AM EDT Physician External CHEMISTRY ORDERABLES EXTERNAL LAB documented in this encounter Visit Diagnoses Not on filedocumented in this encounter Care Teams Wood Handler Relationship Specialty Start Date End Date Parminder Mejia MD [address] [place] [address] PCP - General Pediatrics 09/01/15 09/18/23 documented as of this encounter
--- OUTSIDE RECORDS SUMMARY | 2024-11-01 22:21 | XMS_ITS | Encounter Summary ---
[place] [address] Care Team Providers Care Spinning Lathe Operator Hydraulic Name Role Phone Jaimie Bruce APRN Primary Care Provider + Encounter Details Date Type Department Care Team (Late st Contact Info) Description 09/23/2013 [place] [address] Deepti Hogue APRN [address] [place] [address] Social History Tobacco Use Types Packs/Day Years [...] FILM LIBRARY STORAGE ONLY DX HAND Routine 09/23/2013 2:08 PM EST documented in this encounter Results * Film Library- Storage only DX Hand (09/23/2013 2:08 PM EST) Anatomical Region Laterality Modality Other 09/23/2013 2:08 PM EST Narrative 04/28/2015 2:14 PM EDT This is a Non-reportable exam Procedure Note MAYTE, UNSIGNED REPORT - 04/28/2015 This is a Non-reportable exam Deepti Hogue APRN [facility] FILM LIBRARY O RDERABLES documented in this encounter Visit Diagnoses Not on filedocumented in this encounter Care Teams Spinning Lathe Operator Hydraulic Relationship Specialty Start Date End Date Jaimie Bruce APRN PCP - General 08/24/10 08/31/15 documented as of this encounter
--- OUTSIDE RECORDS SUMMARY | 2024-11-01 22:21 | XMS_ITS | Encounter Summary ---
Author Organization [facility] Address [facility] [place] [address] Care Team Providers Care Hydraulic Controls Technician Name Role Phone Rohan Luevano DNP Primary Care Provider Encounter Details Date Type Department Care Team (Latest Contact Info) Description 10/13/2023 Travel Social History Tobacco Use Types Packs/Day [...] filedocumented in this encounter Care Teams Hydraulic Controls Technician Relationship Specialty Start Date End Date Rohan Luevano DNP [address] [place] [address] PCP - General Family Medicine 09/19/23 documented as of this encounter
== END 2024-11-01 22:19 | disposition home or self-care (01) ==
LOC: LBN 22:18
PROVIDERS: PCP Nurse Practitioner Family; Visit Provider Nurse Practitioner Family
DX: E06.3 Autoimmune thyroiditis (principal)
CPT/HCPCS: 84443

== ENCOUNTER 2025-05-21 10:50 | Outpatient (CLI) | payer MEDICAID, SELFPAY ==
[2025-05-21 12:17] LABS: Abs Immature Grans 0.12 10^3/uL (0.0-0.06); HCT 44.9 % (36.0-46.0); HGB 14.5 g/dL (11.2-15.7); Immature Grans % 0.6 %; MCH 27.1 pg (27.0-33.0); MCHC 32.3 % (32.0-36.0); MCV 84 fL (80-95); MPV 9.4 fL (8.0-11.0); Platelet Count 493 10^3/uL (130-400); RBC 5.36 10^6/uL (3.93-5.22); RDW 13.2 % (11.7-14.6); RDW-SD 40.2 fL; WBC 19.87 10^3/uL (4.4-10.8)
[2025-05-21 12:33] LABS: ALT 33 U/L (14-59); AST 17 U/L (15-37); Albumin 4.0 g/dL (3.4-5.0); Alkaline Phosphatase 115 U/L (46-116); Anion Gap 9.7 mmol/L (3-11); BUN 22 mg/dL (7-18); Bilirubin, Total 0.2 mg/dL (0.2-1.0); CO2 26.3 mmol/L (21.0-32.0); Calcium 9.6 mg/dL (8.5-10.1); Chloride 105 mmol/L (98-107); Estimated GFR 93.86 (mL/min/1.73m2); Glucose 116 mg/dL (74-106); Lipase 29 U/L (<78); Potassium 4.4 mmol/L (3.5-5.1); Sodium 141 mmol/L (136-145); Total Protein 8.6 g/dL (6.4-8.2)
== END 2025-05-21 10:51 | disposition home or self-care (01) ==
PROVIDERS: PCP Nurse Practitioner Family; Visit Provider Nurse Practitioner Family
DX: R11.2 Nausea with vomiting, unspecified (principal); J06.9 Acute upper respiratory infection, unspecified
CPT/HCPCS: 36415; 80053; 83690; 85025

== ENCOUNTER 2025-05-21 16:54 | Outpatient (CLI) | payer MEDICAID, SELFPAY ==
--- NOTE | 2025-05-21 11:15 | DI.RAD_ITS ---
Exam(s) XR CHEST 2V PA LATERAL EXAM: XR CHEST 2V PA LATERAL CLINICAL HISTORY: Cough, R05.9, eval pna TECHNIQUE: 2D digital imaging was performed. Two views. COMPARISON: CR XR CHEST 2V PA LATERAL from 10/12/2022 FINDINGS: HEART: Normal size. Aorta: Not dilated. PULMONARY VASCULATURE: Normal. MEDIASTINUM: Unremarkable. LUNGS: Clear. PLEURAL SPACE: No pleural effusion or pneumothorax. BONE:Unremarkable for age. SOFT TISSUES: Unremarkable. IMPRESSION: No acute abnormality. DATA REPOSITORY: RADIATION DOSE DELIVERED:
== END 2025-05-21 17:14 ==
LOC: DI 16:55
PROVIDERS: PCP Nurse Practitioner Family; Visit Provider Nurse Practitioner Family
DX: R05.9 Cough, unspecified (principal)
CPT/HCPCS: 71046

== ENCOUNTER 2025-05-23 15:40 | Emergency (ER) | payer MEDICAID, SELFPAY ==
[2025-05-23 15:41] VITALS: BP 113/81; PULSE 87; RESP 16; TEMP 36.8; O2SAT 97
[2025-05-23 15:49] VITALS: BP 113/81; PULSE 87; RESP 16; TEMP 36.8; O2SAT 97
[2025-05-23 16:51] LABS: Abs Immature Grans 0.13 10^3/uL (0.0-0.06); HCT 43.5 % (36.0-46.0); HGB 14.1 g/dL (11.2-15.7); Immature Grans % 1.0 %; MCH 26.7 pg (27.0-33.0); MCHC 32.4 % (32.0-36.0); MCV 82 fL (80-95); MPV 8.8 fL (8.0-11.0); Platelet Count 453 10^3/uL (130-400); RBC 5.29 10^6/uL (3.93-5.22); RDW 13.1 % (11.7-14.6); RDW-SD 38.8 fL; WBC 13.67 10^3/uL (4.4-10.8)
[2025-05-23 17:20] LABS: ALT 33 U/L (14-59); AST 15 U/L (15-37); Albumin 4.0 g/dL (3.4-5.0); Alkaline Phosphatase 109 U/L (46-116); Anion Gap 9.2 mmol/L (3-11); BUN 21 mg/dL (7-18); Bilirubin, Total 0.3 mg/dL (0.2-1.0); CO2 26.8 mmol/L (21.0-32.0); Calcium 9.0 mg/dL (8.5-10.1); Chloride 105 mmol/L (98-107); Estimated GFR 108.11 (mL/min/1.73m2); Glucose 85 mg/dL (74-106); Lipase 28 U/L (<78); Magnesium 2.3 mg/dL (1.8-2.4); Potassium 3.7 mmol/L (3.5-5.1); Sodium 141 mmol/L (136-145); Total Protein 8.0 g/dL (6.4-8.2)
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
[2025-05-23 18:09] VITALS: BP 134/83; PULSE 95; RESP 18; O2SAT 100
== END 2025-05-23 18:28 | disposition home or self-care (01) ==
PROVIDERS: Emergency Provider Physician Assistant; PCP Nurse Practitioner Family
DX: J40 Bronchitis, not specified as acute or chronic (principal); R11.2 Nausea with vomiting, unspecified; R10.824 Left lower quadrant rebound abdominal tenderness
CPT/HCPCS: 99283 ×2; 36415; 80053; 83690; 87040; 83605; 83735; 85025

== ENCOUNTER 2025-05-30 10:37 | Emergency (ER) | payer MEDICAID, SELFPAY ==
[2025-05-30 10:47] VITALS: BP 133/91; PULSE 78; RESP 12; TEMP 36.8; O2SAT 98
[2025-05-30 11:09] LABS: Glucose Negative (Negative)
--- NOTE | 2025-05-30 11:15 | DI.CT_ITS ---
Exam(s) CT ABDOMEN PELVIS W EXAM: CT ABDOMEN PELVIS W CLINICAL HISTORY: Left-sided abdominal pain with vomiting for 3 week. TECHNIQUE: Imaging Protocol: Axial computed tomography images with coronal and sagittal reformatted images were created and reviewed CONTRAST MATERIAL: Intravenous: Omnipaque-350 100cc Oral: None COMPARISON: No exams were available for comparison FINDINGS: VISUALIZED LUNG BASES: No nodules nor pleural effusions evident. ABDOMEN: There is no ascites. LIVER: There are no focal hepatic lesions evident. No dilated intrahepatic ducts. GALLBLADDER/BILIARY: No obvious gallbladder pathology. CBD is not dilated. PANCREAS: No evidence of pancreatic mass nor dilatation of the pancreatic duct. SPLEEN: Spleen is not enlarged. No obvious intrasplenic lesions. Splenic and portal veins are patent. ADRENALS: There are no significant adrenal masses. KIDNEYS:No cysts evident. No solid renal masses. No calculi nor hydronephrosis.. ABDOMINAL AORTA: Abdominal aorta is not enlarged. LYMPH NODES:There is no retroperitoneal nor paraaortic adenopathy. ABDOMINAL WALL: No evidence of significant anterior abdominal wall nor inguinal hernia. GI: There is no evidence of bowel obstruction, free air, nor abscess. PELVIS: GI: No evidence of appendicitis.No evidence of sigmoid diverticulitis. LYMPH NODES: There is no intrapelvic nor inguinal adenopathy. REPRODUCTIVE: Uterus and ovaries appear age-appropriate. There are no extraovarian adnexal masses. No free fluid in the pelvis. URINARY BLADDER: No calculi nor obvious masses evident OSSEOUS: No fractures and no significant osseous lesions. No disc space narrowing. IMPRESSION: 1. No significant acute findings in the abdomen and pelvis. Report called by myself to ER physician 05/30/2025 at 12:40 p.m. RADIATION DOSE DELIVERED: 586.45mGy.cm Total DLP DATA REPOSITORY: All CT scans at this facility are submitted to the National Radiology Data Registry (NRDR) Dose Index Registry (DIR) with the [employer] (A[employer]). RADIATION OPTIMIZATION: All CT scans at this facility use at least one of these dose optimization techniques: automated exposure control; mA and/or kV adjustment per patient size (includes targeted exams where dose is matched to clinical indication); or iterative reconstruction.
[2025-05-30] MEDS: Normal Saline 1,000 ML 1000 ML IV (11:42)
[2025-05-30] MEDS: Ondansetron 4 MG/2 ML VIAL IVP (11:43)
[2025-05-30 12:02] LABS: Abs Immature Grans 0.04 10^3/uL (0.0-0.06); HCT 43.8 % (36.0-46.0); HGB 14.2 g/dL (11.2-15.7); Immature Grans % 0.5 %; MCH 26.7 pg (27.0-33.0); MCHC 32.4 % (32.0-36.0); MCV 82 fL (80-95); MPV 8.9 fL (8.0-11.0); Platelet Count 385 10^3/uL (130-400); RBC 5.32 10^6/uL (3.93-5.22); RDW 12.9 % (11.7-14.6); RDW-SD 38.5 fL; WBC 8.01 10^3/uL (4.4-10.8)
[2025-05-30 12:10] LABS: ALT 30 U/L (14-59); AST 17 U/L (15-37); Albumin 3.8 g/dL (3.4-5.0); Alkaline Phosphatase 120 U/L (46-116); Anion Gap 7.0 mmol/L (3-11); BUN 11 mg/dL (7-18); Bilirubin, Total 0.3 mg/dL (0.2-1.0); CO2 29.0 mmol/L (21.0-32.0); Calcium 9.4 mg/dL (8.5-10.1); Chloride 107 mmol/L (98-107); Estimated GFR 126.90 (mL/min/1.73m2); Glucose 93 mg/dL (74-106); Lipase 29 U/L (<78); Potassium 4.0 mmol/L (3.5-5.1); Sodium 143 mmol/L (136-145); Total Protein 8.0 g/dL (6.4-8.2)
[2025-05-30] MEDS: Normal Saline - Diluent 50 ML VIAL IJ (12:10)
[2025-05-30] MEDS: Omnipaque 350 MG/ML 100 ML BTL IJ (12:11)
[2025-05-30] MEDS: Normal Saline Flush 10 ML SYR IVP (12:11)
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
--- NOTE | 2025-06-03 08:32 | NUR.NOTE ---
Accessed Pt chart to identify PT's PCP for a referral request
--- NOTE | 2025-06-05 08:35 | NUR.NOTE ---
Access chart to determine PCP for prior authorization to be faxed to them. Famotidine 40mg/5ms suspension. Nursing Note:
== END 2025-05-30 13:55 | disposition home or self-care (01) ==
PROVIDERS: Emergency Provider Student in an Organized Health Care Education/Training Program; PCP Nurse Practitioner Family
DX: R10.12 Left upper quadrant pain (principal); R11.10 Vomiting, unspecified
CPT/HCPCS: 36415; 80053; 81025; 83690; 96361; 96374; 99285; 74177; 81003; 83605; 85025; 99284; J2405; J3490

== ENCOUNTER 2025-06-20 05:59 | Day surgery (SDC) | payer MEDICAID, SELFPAY ==
--- NOTE | 2025-06-19 15:55 | W.PM.DSUDISC ---
Date of service: 06/20/25 Discharge Plan Disposition Patient Disposition: Home Condition: Good Discharge Details Reason For Visit: EGD Attending Provider: Kaylyn Gaspar Primary Care Provider: Rohan Bragg Home Meds and New Rx's Prescriptions: Continued ondansetron 4 mg tablet,disintegrating 4 mg PO DAILY Patient Comments: DISSOLVE ONE TABLET ON THE TONGUE EVERY 6 HOURS NEEDED FOR NAUSEA AND VOMITING famotidine 40 mg/5 mL (8 mg/mL) suspension for reconstitution 20 mg PO BID Qty: 150 1RF metoclopramide HCl 5 mg/5 mL solution 10 mg PO Q6H PRN (Reason: nausea and vomiting) Qty: 1000 0RF triamcinolone acetonide 0.1 % cream 1 applic topical BID Qty: 30 1RF Rx Instructions: twice a day for no longer than 2 weeks at a time, then take a week off metoprolol tartrate 25 mg tablet 25 mg PO BID Qty: 180 4RF albuterol sulfate [ProAir HFA] 90 mcg/actuation HFA aerosol inhaler 2 puff Inhalation Q4H PRN Qty: 2 1RF Rx Instructions: Dispense #2 inhalers (1 for home, one for school) (DME) Space Chamber Plus 1 EACH spacer 1 ea Miscellaneous PRN Qty: 1 levothyroxine 75 mcg tablet 75 mcg PO DAILY Qty: 90 4RF sucralfate [Carafate] 1 gram tablet 1 g PO BID Qty: 60 0RF pantoprazole [Protonix] [address] for susp in packet 40 mg PO DAILY Qty: 30 0RF Discharge Instructions Additional Instructions: 1. If tolerated, consume a soft, low fiber diet for 1-2 days. [address] Do not drive, drink alcohol, operate machinery, make critical decisions, or do activities that require coordination or balance for 24 hours. 3. You may experience a sore throat for 24 to 48 hours. You may use throat lozenges or gargle with warm salt water to relieve the discomfort. 4. Because air was put into your stomach during the procedure, you may experience some belching. 5. Go directly to the emergency room if you notice any of the following: Develop chills (warm to touch), or if you have a thermometer and your temperature is above 101 Difficulty breathing or difficultly swallowing Persistent vomiting Severe abdominal pain, other than gas cramps Severe chest pain Black, tarry stools Any bleeding ? exceeding one tablespoon 6. Call your physician if the site where your intravenous was started becomes red, swollen, painful, and warm to touch. 7. Your physician has reviewed your pre-procedure medications. Please continue to take those medications as previously ordered. You will be given specific information/education regarding any changes to your medications before leaving. Activity:: Activity as Tolerated Diet:: As Tolerated DS: Diagnosis Discharge Diagnosis (1) Nausea & vomiting: Status: Acute
--- NOTE | 2025-06-19 15:56 | W.PM.ENDDOP ---
Date of service: 06/20/25 Endoscopy Report DATE OF PROCEDURE: 06/20/25 PRE-OP DIAGNOSIS: Nausea and vomiting PROCEDURE: EGD SURGEON: Demetrio Diaz ANESTHESIA TYPE: General:No Airway COMPLICATIONS: None DISPOSITION: same day INDICATIONS: Violette is a 19-year-old woman with refractory nausea and vomiting
[2025-06-20 06:24] VITALS: BP 126/98; PULSE 81; RESP 16; TEMP 36.5; O2SAT 98
[2025-06-20] MEDS: Lactated Ringers 1,000 ML 80 ML IV (06:44)
--- NOTE | 2025-06-20 07:07 | ANES.PREOP_ITS ---
General Info Date of Service Date Performed: 06/20/25 Height: 4 ft 9 in Weight: 84.8 kg Body Mass Index (BMI): 40.4 Surgical Procedure: Operation Date: 06/20/25 07:35 Proposed Procedure Side Surgeon p Gastroscopy Kaylyn Gaspar MD Actual Procedure Side Surgeon p Gastroscopy Not Applicable Kaylyn Gaspar MD Pre-Op Diagnosis Post-Op Diagnosis Persistent nausea and vomiting Meds Allergies and Home Medications Allergies Allergy/AdvReac Type Severity Reaction Status Date / Time prednisone AdvReac Intermediate Nausea Verified 06/20/25 06:31 Hay Allergy Wheezing Uncoded 06/20/25 06:31 Home Medication ?Medication ?Instructions ?Recorded inhalational spacing device (Space ##1 09/01/15 Chamber Plus) triamcinolone acetonide 0.1 % 1 applic topical BID #30 grams 04/01/24 topical cream metoprolol tartrate 25 mg tablet 25 mg PO BID #180 tab s 11/01/24 levothyroxine 75 mcg tablet 75 mcg PO DAILY #90 tab-ca ps 11/02/24 albuterol sulfate 90 mcg/actuation 2 puff inhalation Q 4H PRN #2 grams 05/28/25 aerosol inhaler (ProAir HFA) pantoprazole 40 mg granules 40 mg PO DAILY #30 ea 05/03 06/26 delayed-release for susp in packet (Protonix) sucralfate 1 gram tablet (Carafate) 1 g PO BID #60 tab s 05/30/25 famotidine 40 mg/5 mL (8 mg/mL) 20 mg (2.5 mL) PO BID #150 mL 06/09/25 oral suspension metoclopramide HCl 5 mg/5 mL oral 10 mg (10 mL) PO Q6H PRN nausea 06/09/25 solution and vomiting #1,000 mL ondansetron 4 mg disintegrating 4 mg PO DAILY 06/09/25 tablet Current Visit Medications: Current Medications Generic Name Dose Route Start Last Admin Trade Name Freq PRN Reason Stop Dose Admin Ringer's Solution 1,000 mls @ 80 mls/hr 06/20/25 06:00 06/20/25 06:44 IV 06/20/25 23:59 80 mls/hr INFUSION AKANKSHA Administration IV Miscellaneous Supplies 1 each 06/20/25 06:00 Iv Access IV 06/20/25 23:59 DIRECTED AKANKSHA Sodium Chloride 0 ml 06/20/25 06:00 Normal Saline Flush 10 Ml Syr IV 06/20/25 23:59 PRN PRN Sodium Chloride 0 ml 06/20/25 06:00 Normal Saline 10 Ml Vial IJ 06/20/25 23:59 DIRECTED PRN Sterile Water 0 ml 06/20/25 06:00 Water,Injection,Sterile 10 Ml Vial IJ 06/20/25 23:59 DIRECTED PRN PFSH Active Problems Active Problems: Problem Status Onset Code Nausea & vomiting Acute R11.2 Vomiting Acute R11.10 Left upper quadrant abdominal pain Acute R10.12 Normal hearing exam Acute Z01.10 Eczema Acute OCD (obsessive compulsive disorder) Acute F42.9 PTSD (post-traumatic stress disorder) Acute F43.10 Sinus tachycardia Acute R00.0 Food allergy Acute Z91.018 Dysfunctional uterine bleeding Acute N93.8 Dizzy spells Acute R42 Anemia Chronic D64.9 Lactose intolerance Acute E73.9 Attention deficit hyperactivity disorder, combined type Chronic 02/13/13 F90.2 Short stature disorder Chronic 06/20/13 R62.52 Hypothyroidism, acquired, autoimmune Chronic 09/07/15 E06.3 Mild intermittent asthma, uncomplicated Chronic 10/12/15 J45.20 Medical History Medical History Bronchitis Surveillance for Depo-Provera contraception Irregular menstrual cycle Contraception 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) BMI (body mass index), pediatric, 85% to less than 95% for age (10/12/15) Asthma Wears glasses Hypothyroidism ADHD (attention deficit hyperactivity disorder), combined type Anxiety Short stature disorder ODD (oppositional defiant disorder) Tobacco Smoking/Tobacco Use Status: Never Passive smoking exposure: Yes (Smoke outside) Second hand exposure: Yes (mom outside) Alcohol Alcohol Intake: never Substance Use Substance use: Never Substance use type: does not use Vital Signs and Lab Results Vital Signs Most Recent Vital Signs in EMR: Most Recent Vital Signs Temp Pulse Resp BP Pulse Ox 36.5 C 81 16 126/98 H 98 06/20/25 06:24 06/20/25 06:24 06/20/25 06:24 06/20/25 06:24 06/20/25 06:24 Point of Care Results Point of Care Results: POC- Test(urine) Negative 06/20/25 06:31 Lab Results Complete Blood Count: WBC, (4.4-10.8) 8.01 10^3/uL 05/30/25, 11:40 RBC, (3.93-5.22) 5.32 10^6/uL H 05/30/25, 11:40 Hgb, (11.2-15.7) 14.2 g/dL 05/30/25, 11:40 Hct, (36.0-46.0) 43.8 % 05/30/25, 11:40 Plt Count, (130-400) 385 10^3/uL 05/30/25, 11:40 VBG Lactate, (<or=2.0) 0.8 mmol/L 05/30/25, 11:40 Complete Metabolic Panel: Sodium, (136-145) 143 mmol/L 05/30/25, 11:40 Potassium, (3.5-5.1) 4.0 mmol/L 05/30/25, 11:40 Chloride, (98-107) 107 mmol/L 05/30/25, 11:40 Carbon Dioxide, (21.0-32.0) 29.0 mmol/L 05/30/25, 11 :40 BUN, (7-18) 11 mg/dL 05/30/25, 11:40 Creatinine, (0.55-1.02) 0.7 mg/dL 05/30/25, 11:40 Est GFR (CKD-EPI 2020), (mL/min/1.73m2) 126.90 05/30/25, 11:40 Magnesium, (1.8-2.4) 2.3 mg/dL 05/23/25, 16:41 Calcium, (8.5-10.1) 9.4 mg/dL 05/30/25, 11:40 Albumin, (3.4-5.0) 3.8 g/dL 05/30/25, 11:40 Glucose, (74-106) 93 mg/dL 05/30/25, 11:40 Liver Function Panel: ALT, (14-59) 30 U/L 05/30/25, 11:40 AST, (15-37) 17 U/L 05/30/25, 11:40 Pancreas Panel: Lipase, (<78) 29 U/L 05/30/25, 11:40 Anesthesia Assessment and Plan Anesthesia History Personal History: No History of General Anesthesia Family History: Other Exercise Tolerance Exercise Tolerance: Metabolic Equivalents>4 Pertinent Negatives Pertinent Negatives: No Symptoms of GERD Cardiac & Pulmonary Exam Cardiac Exam: Normal S1/S2 Heart Sounds Pulmonary Exam: Clear Bilateral Breath Sounds Implantable Cardiac Device Does patient have a Pacemaker or an ICD?: No Airway Exam Known Difficult Airway: No Mallampati Class: 2 Mouth Opening: Normal (> 3cm) Thyromental Distance: Greater than 3 cm Neck Range of Motion: Full ROM Neck Circumference: Normal Teeth Condition: Normal Dentition ASA Classification ASA Score: ASA 3 Emergency Case?: No NPO Status NPO Status: NPO Clears >2 hours, Solids >8 hours Status Status: Negative HCG Anesthesia Plan Resuscitation Status: Full Code Anesthesia Technique: General Anesthesia Airway Planned: Natural Airway Monitors Used: Standard Monitors
[2025-06-20 07:09] VITALS: BMI 40.4
--- NOTE | 2025-06-20 07:40 | BOWEL_PTH ---
PATIENT: Violette Simmons LOC: [facility] U#:[id number] AGE/SX: 19/F ROOM: RE06/20/[address]: Kaylyn Gaspar : 2005 BED: DIS: 06/20/2025 SPEC #: [id number] RECD: 06/20/25 12:34 STATUS: [facility] #: [id number] RAMÍREZ: 06/20/25 07:[address]: Kaylyn Gaspar DEPT: Surgical Specimen RECD BY: Felisha Benton ENTERED: 06/20/25 12:36 SP TYPE: Bowel OTHR DR: Rohan Patel, EUGENIO Tissues: 1 - BIOPSY BOWEL 2 - STOMACH BIOPSY 3 - ESOPHAGUS BIOPSY Procedures: GROSS AND MICRO LEVEL 4 IMMUNOPEROXIDASE STAIN Comments: [id number]
[2025-06-20 07:53] VITALS: BP 109/68; PULSE 103; RESP 16; TEMP 36.3; O2SAT 97
--- NOTE | 2025-06-20 07:54 | W.PM.ENDDOP ---
Date of service: 06/20/25 Time of Service: 07:54 Endoscopy Report DATE OF PROCEDURE: 06/20/25 PRE-OP DIAGNOSIS: Nausea, vomiting POST-OP DIAGNOSIS: same PROCEDURE: Upper endoscopy with biopsy SURGEON: Kaylyn Gaspar ANESTHESIA TYPE: General:No Airway ESTIMATED BLOOD LOSS: 2 PATHOLOGY: other (Duodenum, Gastric Antrum, GE Junction ) COMPLICATIONS: None DISPOSITION: PACU INDICATIONS: Patient is a 19 yo female with persistent nausea and vomiting. PROCEDURE START TIME: 07:38 PROCEDURE END TIME: :43 FINDINGS: Normal upper endoscopy without significant findings. Cold forcep biopsy performed of duodenum, gastric antrum and GE junction. PROCEDURE DESCRIPTION: After adequate sedation, the upper endoscope was inserted and advanced in the duodenum under direct visualization. The scope was withdrawn and the mucosa inspected. The duodenum appeared normal. A cold forcep biopsy of the duodenum was performed. The stomach was normal with no evidence of ulcerations or erosions. ?The antrum area was also biopsied with cold forcep biopsy and sent to check for H. pylori.? Retroflexion view in the stomach was normal. At the lower esophagus Z line area, this was inspected and noted to be normal. A cold forcep biopsy was taken at the GE junction. No evidence of Restrepo?s esophagus or strictures. Otherwise, the esophagus was normal. The scope was completely withdrawn from the patient. The patient tolerated the procedure well with no immediate complications.
--- NOTE | 2025-06-20 08:23 | W.ANESPOSTOP ---
Postoperative Evaluation Date, Time and Location Date Performed: 06/20/25 Time Performed: 08:23 Patient Location: Day Surgery Unit Vital Signs Most Recent Imported Vital Signs: Most Recent Vital Signs Temp Pulse Resp BP Pulse Ox 36.3 C L 103 H 16 109/68 97 06/20/25 07:53 06/20/25 07:53 06/20/25 07:53 06/20/25 07:53 06/20/25 07:53 Pain Score Most Recent Pain Score: Most Recent Pain Score Pain Level 0 06/20/25 07:53 Assessment Mental Status: Awake (Alert & Oriented to Patient Baseline) Airway and Respiratory Function: Patent airway with normal (patient baseline) respiratory exam Cardiovascular Function: Hemodynamically Stable Hydration Status: Adequately Hydrated Nausea & Vomiting: No Nausea or Vomiting Pain: Pt. Denies Any Pain Peripheral Nerve Block: Patient did not receive a nerve block
[2025-06-20 08:27] VITALS: BP 106/70; PULSE 68; RESP 16; TEMP 36.3; O2SAT 99
== END 2025-06-20 08:48 | disposition home or self-care (01) ==
LOC: SUR 05:59
PROVIDERS: PCP Nurse Practitioner Family; Visit Provider Student in an Organized Health Care Education/Training Program
PROC: 0DJ68ZZ Inspection of Stomach, Via Natural or Artificial Opening Endoscopic (ICD-10-PCS; CPT 43235; principal; 2025-06-20 07:30)
DX: R11.2 Nausea with vomiting, unspecified (principal); K29.50 Unspecified chronic gastritis without bleeding; K22.89 Other specified disease of esophagus
CPT/HCPCS: 43239; 00123; 81025; 88305; 88361; J2003; J2704

== ENCOUNTER → 2025-08-19 02:01 | Outpatient (CLI) | payer MEDICAID, SELFPAY ==
--- NOTE | 2025-08-19 | DI.US_ITS ---
Exam(s) US ABDOMEN LIMITED EXAM: US ABDOMEN LIMITED CLINICAL HISTORY: POST PRANDIAL NAUSEA, VOMITING, R11.2, WT LOSS, R63.4 TECHNIQUE: Ultrasound of the right upper quadrant performed using standard protocol. COMPARISON: CT CT ABDOMEN PELVIS W from 05/30/2025 FINDINGS: LIVER: Normal size. Normalechogenicity. No focal liver lesions are seen.. GALLBLADDER: No evidence of cholelithiasis. No evidence of wall thickening. No pericholecystic fluid identified. GUSMAN'S SIGN: Negative. BILIARY SYSTEM: No intrahepatic or extrahepatic biliary ductal dilation. RIGHT KIDNEY: Normal size. No evidence of renal calculi. No evidence of hydronephrosis. No suspicious renal mass. No cyst identified. PANCREAS: Normal where visualized. ABDOMINAL AORTA AND IVC: Visualized portions normal caliber. ASCITES: None seen. IMPRESSION: Normal sonographic appearance of the right upper quadrant. DATA REPOSITORY:
== END ==
PROVIDERS: PCP Nurse Practitioner Family; Visit Provider Nurse Practitioner Family
DX: R11.2 Nausea with vomiting, unspecified (principal); R63.4 Abnormal weight loss
CPT/HCPCS: 36415; 76705; 84443